=== PATIENT | female | born 1940 | race Caucasian/White ===

== ENCOUNTER 2019-04-08 15:19 | Observation (INO) | payer MEDICARE ==
[2019-04-08] MEDS ORDERED: NITROGLYCERIN OINT 1 INCH/GM PACKET TOPICAL STA (16:41)
[2019-04-08] MEDS ORDERED: ASPIRIN 81 MG PO STA (16:41)
--- NOTE | 2019-04-08 17:10 | ED ---
General Adult HPI - General Stated complaint: abnormal ekg Time Seen by Provider: 04/08/19 16:40 Source: RN notes reviewed - History of Present Illness Initial comments: This is an 78-year-old female presents emergency Department complaining of chest pain. Patient states she had chest pain 2 nights ago and lasted about an hour and she also stated at that time she was somewhat short of breath. Patient states there was a heaviness in the left side of her chest and then eventually dissipated. Patient states she has again today and decided this time she needs to come and be evaluated. Patient states it lasted for an hour again. Patient went to see her primary medical care doctor first and he sent her into the emergency department. Patient states currently she is chest pain-free. Patient denies any associated shortness of breath today she denies any diaphoretic episodes she denies any nausea. Patient states recently she has had no fever chills or cough. Patient denies abdominal pain patient denies nausea vomiting or diarrhea. - Related Data Home Medications Medication Instructions Recorded Confirmed No Known Home Medications 04/08/19 04/08/19 Review of Systems ROS Statement: Those systems with pertinent positive or pertinent negative responses have been documented in the HPI. ROS Other: All systems not noted in ROS Statement are negative. General Exam - General Exam Comments Initial Comments: GENERAL: Patient is well-developed and well-nourished. Patient is nontoxic and well- hydrated and is in mild distress. ENT: Neck is soft and supple. No significant lymphadenopathy is noted. Oropharynx is clear. Moist mucous membranes. Neck has full range of motion without eliciting any pain. EYES: The sclera were anicteric and conjunctiva were pink and moist. Extraocular movements were intact and pupils were equal round and reactive to light. Eyelids were unremarkable. PULMONARY: Unlabored respirations. Good breath sounds bilaterally. No audible rales rhonchi or wheezing was noted. CARDIOVASCULAR: There is a regular rate and rhythm without any murmurs gallops or rubs. ABDOMEN: Soft and nontender with normal bowel sounds. No palpable organomegaly was noted. There is no palpable pulsatile mass. SKIN: Skin is clear with no lesions or rashes and otherwise unremarkable. NEUROLOGIC: Patient is alert and oriented x3. Cranial nerves II through XII are grossly intact. Motor and sensory are also intact. Normal speech, volume and content. Symmetrical smile. MUSCULOSKELETAL: Normal extremities with adequate strength and full range of motion. LYMPHATICS: No significant lymphadenopathy is noted PSYCHIATRIC: Normal psychiatric evaluation. Medical Decision Making - Medical Decision Making EKG shows normal sinus rhythm at 86 bpm IA interval 282 QRS is 150 QT interval 424 QTC is 507. Patient's EKG shows no ST segment elevation or depression or T wave abnormalities are noted Disposition Referrals: Geovanny Holland MD [Primary Care Provider] - 1-2 days
[2019-04-08 17:17] LABS: Basophils % (A) 1 %; Eosinophils # (A) 0.1 k/uL (0-0.7); Eosinophils % (A) 1 %; HGB 12.1 gm/dL (11.4-16.0); Lymphocytes # (A) 1.8 k/uL (1.0-4.8); Lymphocytes % (A) 23 %; MCH 28.9 pg (25.0-35.0); MCHC 32.9 g/dL (31.0-37.0); MCV 88.1 fL (80.0-100.0); Mean Platelet Volume 7.6; Monocytes # (A) 0.5 k/uL (0-1.0); Monocytes % (A) 6 %; Neutrophils # (A) 5.3 k/uL (1.3-7.7); Neutrophils % (A) 68 %; Platelet Count 297 k/uL (150-450); RBC 4.19 m/uL (3.80-5.40); RDW 14.1 % (11.5-15.5); WBC 7.8 k/uL (3.8-10.6)
[2019-04-08 17:24] LABS: INR 0.9 (<1.2); Prothrombin Time 9.8 sec (9.0-12.0)
[2019-04-08 17:35] LABS: Albumin 4.2 g/dL (3.5-5.0); Calcium 9.5 mg/dL (8.4-10.2); Total Bilirubin 0.4 mg/dL (0.2-1.3)
--- NOTE | 2019-04-08 19:05 | XR ---
EXAMINATION: XR chest 2V DATE AND TIME: 04/08/2019 6:02 PM CLINICAL INDICATION: PHH; Chest Pain TECHNIQUE: Departmental protocol COMPARISON: None FINDINGS: The lungs are clear, with exception of a 1 cm pulmonary calcification superimposed over the lateral r ight mid lung zone. Bilateral nipple shadows are incidentally noted. The pleural spaces are negative. The cardiac silhouette is not enlarged. The remainder of the mediastinal silhouette is unremarkable. The skeletal structures and soft tissues are negative for acute findings. IMPRESSION: NO ACUTE PROCESS.
[2019-04-08] MEDS ORDERED: HEPARIN SODIUM,PORCINE 5,000 UNIT/ML 1 ML VIAL IV ONE (19:07)
[2019-04-08] MEDS ORDERED: NITROGLYCERIN SL TABS 0.4 MG TAB SUBLINGUAL PRN (19:12)
[2019-04-08] MEDS ORDERED: HEPARIN SOD,PORK IN 0.45% NACL 25,000 UNIT in 0.45% NACL 1 250ML.BAG IV SCH (19:15)
[2019-04-08] MEDS ORDERED: hydrALAZINE HCL 20 MG/ML 1 ML VIAL IVP STA (19:32)
[2019-04-08] MEDS ORDERED: HEPARIN SODIUM,PORCINE 5,000 UNIT/ML 1 ML VIAL IV PRN (20:38)
[2019-04-09] MEDS: NITROGLYCERIN OINT 1 INCH/GM PACKET TOPICAL SCH ×2 (00:33→06:35)
[2019-04-09 01:29] LABS: D-Dimer 0.41 mg/L FEU (<0.60); Partial Thromboplastin Time 52.5 sec (22.0-30.0)
--- NOTE | 2019-04-09 06:03 | HP ---
HISTORY AND PHYSICAL DATE OF SERVICE: 04/08/2019 CHIEF COMPLAINT: Chest pain. HISTORY OF PRESENT ILLNESS: This 78-year-old woman with a past medical history of multiple medical problems including history of CAD, history of hypertension, hyperlipidemia, history of DJD, history of depression being followed by Dr. Holland in the outpatient setting was complaining of chest pain. The pain was felt about 2 nights ago, lasted for an hour. The patient felt pain mainly in the left side of the chest around the breast area. The patient also had some difficulty in breathing and some aggression with the pain with breathing and the patient came to [facility] and admitted for further evaluation and treatment. The troponins are negative and the EKG showed right bundle branch block. There is no history of fever, rigors or chills. No history of headache, loss of consciousness, seizures at this time. PAST MEDICAL HISTORY: History of CAD, history of hypertension, hyperlipidemia, history of DJD, history of depression. MEDICATIONS: Home medications are: 1. Aspirin 81 mg p.o. daily. 2. Norvasc 5 mg p.o. daily. 3. Zoloft 50 mg daily. ALLERGIES: None. FAMILY HISTORY: No history of heart disease or strokes in the family. SOCIAL HISTORY: No history of smoking. No history of alcohol intake. REVIEW OF SYSTEMS: ENT: Diminished hearing and diminished vision. CARDIOVASCULAR: As mentioned earlier. RESPIRATORY: As mentioned earlier. GI no nausea or vomiting. no dysuria. NERVOUS SYSTEM: No numbness or weakness. ALLERGY/IMMUNOLOGY: No asthma or hayfever. MUSCULOSKELETAL: As mentioned earlier. HEMATOLOGY/ONCOLOGY: No history of anemia. ENDOCRINE: No history of diabetes or hypothyroidism. CONSTITUTIONAL: As mentioned earlier. DERMATOLOGY: Negative. RHEUMATOLOGY: Negative. PSYCHIATRY: As mentioned earlier. PHYSICAL EXAM: Patient is alert, oriented x3. The pulse is 80, blood pressure 131/70, respiration 16, temperature 98.2, pulse ox 98% on room air. HEENT: Conjunctivae normal. Oral mucosa moist. NECK is no jugular venous distention. No carotid bruit. No lymph node enlargement. CARDIOVASCULAR System: S1, S2 muffled. RESPIRATIONS: Breath sounds diminished in the bases. A few scattered rhonchi and crackles. ABDOMEN: Soft, nontender. No mass palpable. LEGS: No edema. No swelling. NERVOUS SYSTEM: Higher functions as mentioned earlier. Moves all four extremities. No focal motor or sensory deficits. LYMPHATICS: No lymph nodes palpable in the neck, axillae or groin. SKIN: No ulcer, rash or bleeding. JOINTS: No active deforming arthropathy. LABS: CBC within normal limits. Glucose 104. Troponins are negative. ASSESSMENT: 1. Chest pain possible unstable angina. 2. Right bundle branch block on the EKG. 3. Hypertension. 4. Hyperlipidemia. 5. History of coronary artery disease. 6. History of degenerative joint disease. 7. History of depression. RECOMMENDATIONS AND DISCUSSION: In this 78-year-old woman who presented with multiple complex medical issues, we will monitor the patient closely, continue the current medications, management and symptomatic treatment. Otherwise, at this time, unstable angina protocol. Heparin is initiated. Cardiology consultation to rule out myocardial infarction. Resume the home medications. The prognosis is guarded because of multiple complex medical issues. Further recommendations to follow. A copy is being forwarded to Dr. Holland who is the primary physician. MMODL / IJN: [id number] /
[2019-04-09 06:26] LABS: Cholesterol 204 mg/dL (<200); HDL Cholesterol 56 mg/dL (40-60); LDL Cholesterol,Calculated 132 mg/dL (0-99); Triglycerides 79 mg/dL (<150)
--- NOTE | 2019-04-09 08:10 | P.CRDCN ---
History of Present Illness Consult date: 04/09/19 Chief complaint: Chest pain History of present illness: This is an 78-year-old female patient with a past medical history significant for hypertension was referred from her primary care physician office directly to the hospital for further evaluation of abnormal EKG. The patient did have an episode of atypical chest discomfort 2 days ago when she was sleeping and the discomfort woke her up from sleep. It was sharp kind of discomfort, in the mid of the chest, without any radiation, and without any associated symptoms and lasted only for a few minutes. She went yesterday to see her primary care physician about prescription refill and she told him about the chest discomfort weren't EKG in the office was performed and based on the EKG the patient was sent to the hospital. The EKG in the hospital revealed sinus rhythm with RBBB. The cardiac enzymes were checked and came in to be unremarkable. The chest x- ray did not show any acute abnormalities. The d-dimer came in to be unremarkable. The patient continues to be chest pain-free during her hospitalization. She is not aware of any prior history of coronary artery disease or congestive heart failure or cardiac arrhythmia and the patient never seen by a train master in the past. The patient does not smoke. And there is no significant family history of coronary artery disease. Past Medical History Past Medical History: Coronary Artery Disease (CAD), Hyperlipidemia, Hypertension History of Any Multi-Drug Resistant Organisms: None Reported Past Surgical History: Joint Replacement, Orthopedic Surgery, Tubal Ligation Additional Past Surgical History / Comment(s): hip sugery Past Anesthesia/Blood Transfusion Reactions: No Reported Reaction Past Psychological History: Depression Smoking Status: Never smoker Past Alcohol Use History: None Reported Past Drug Use History: None Reported - Past Family History Mother Family Medical History: No Reported History Father Family Medical History: Asthma Additional Family Medical History / Comment(s): blood disorder Sister(s) Family Medical History: Diabetes Mellitus Brother(s) Family Medical History: Cancer, Hypertension Son(s) Family Medical History: No Reported History Daughter(s) Family Medical History: Coronary Artery Disease (CAD) Additional Family Medical History / Comment(s): cardiac caths with stents Medications and Allergies Home Medications Medication Instructions Recorded Confirmed Type Aspirin [Adult Low Dose Aspirin EC] 81 mg PO DAILY 04/08/19 04/08/19 History Sertraline [Zoloft] 50 mg PO DAILY 04/08/19 04/08/19 History amLODIPine [Norvasc] 5 mg PO DAILY 04/08/19 04/08/19 History Allergies Allergy/AdvReac Type Severity Reaction Status Date / Time No Known Allergies Allergy Verified 04/08/19 20:42 Physical Exam Vitals: Vital Signs Temp Pulse Pulse Pulse Resp BP BP 04/09/19 04:00 97.7 F 89 15 179/75 04/08/19 23:32 98.2 F 80 15 131/70 04/08/19 20:00 98.0 F 103 H 14 145/65 04/08/19 19:48 19 04/08/19 19:29 79 19 182/98 04/08/19 18:31 77 18 168/95 04/08/19 15:31 98.4 F 101 H 18 162/81 Pulse Ox 04/09/19 04:00 97 04/08/19 23:32 98 04/08/19 20:00 97 04/08/19 19:48 04/08/19 19:29 98 04/08/19 18:31 97 04/08/19 15:31 98 Intake and Output 04/08/19 04/09/19 04/09/19 22:59 06:59 14:59 Intake Total 0 Balance 0 Intake: Oral 0 Other: Voiding Method Toilet Toilet Incontinent Incontinent # Voids 1 Weight 70.9 kg - Constitutional General appearance: no acute distress - Respiratory Respiratory: bilateral: CTA - Cardiovascular Rhythm: regular Heart sounds: normal: S1, S2 Abnormal Heart Sounds: systolic murmur Results 04/08/19 17:02 04/08/19 17:02 Cardiac Enzymes 04/08/19 04/08/19 04/08/19 Range/Units 17:02 17:02 23:31 AST 23 (14-36) U/L Troponin I <0.012 0.013 (0.000-0.034) ng/mL 04/09/19 Range/Units 05:30 AST (14-36) U/L Troponin I 0.014 (0.000-0.034) ng/mL Coagulation 04/08/19 04/09/19 Range/Units 17:02 01:00 PT 9.8 (9.0-12.0) sec APTT 22.0 52.5 H (22.0-30.0) sec Lipids 04/09/19 Range/Units 05:30 Triglycerides 79 (<150) mg/dL Cholesterol 204 H (<200) mg/dL HDL Cholesterol 56 (40-60) mg/dL CBC 04/08/19 Range/Units 17:02 WBC 7.8 (3.8-10.6) k/uL RBC 4.19 (3.80-5.40) m/uL Hgb 12.1 (11.4-16.0) gm/dL Hct 37.0 (34.0-46.0) % Plt Count 297 (150-450) k/uL Comprehensive Metabolic Panel 04/08/19 Range/Units 17:02 Sodium 142 (137-145) mmol/L Potassium 4.0 (3.5-5.1) mmol/L Chloride 106 (98-107) mmol/L Carbon Dioxide 29 (22-30) mmol/L BUN 17 (7-17) mg/dL Creatinine 0.97 (0.52-1.04) mg/dL Glucose 104 H (74-99) mg/dL Calcium 9.5 (8.4-10.2) mg/dL AST 23 (14-36) U/L ALT 13 (9-52) U/L Alkaline Phosphatase 63 (38-126) U/L Total Protein 7.0 (6.3-8.2) g/dL Albumin 4.2 (3.5-5.0) g/dL Current Medications Generic Name Dose Route Start Last Admin Trade Name Freq PRN Reason Stop Dose Admin Amlodipine Besylate 5 mg 04/09/19 09:00 Norvasc PO DAILY [facility] Aspirin 325 mg 04/09/19 09:00 Aspirin PO DAILY [facility] Heparin Sodium (Porcine) 0 unit 04/08/19 20:38 Heparin IV PER PROTOCOL PRN Low PTT Protocol Heparin Sodium/Sodium Chloride 250 mls @ 8.508 mls/hr 04/08/19 19:15 04/08/19 19:43 25,000 unit/ Sodium Chloride IV 12 units/kg/hr .Q24H RENE 8.508 mls/hr Administration Protocol 12 UNITS/KG/HR Nitroglycerin 1 inch 04/09/19 00:00 04/09/19 06:35 Nitro-Bid Oint TOPICAL Not Given Q6HR [facility] Nitroglycerin 0.4 mg 04/08/19 19:12 Nitrostat SUBLINGUAL Q5M PRN Chest Pain Sertraline HCl 50 mg 04/09/19 09:00 Zoloft PO DAILY RENE Intake and Output 04/08/19 04/09/19 04/09/19 22:59 06:59 14:59 Intake Total 0 Balance 0 Intake: Oral 0 Other: Voiding Method Toilet Toilet Incontinent Incontinent # Voids 1 Weight 70.9 kg 04/08/19 17:02 04/08/19 17:02 Assessment and Plan Assessment: Assessment #1 atypical chest discomfort. The patient currently chest pain-free #2 hypertension Plan #1 the patient was ruled out for acute coronary syndrome #2 PE was ruled out. She does have normal d-dimer #3 I am getting the patient up and around, if she is asymptomatic, I feel comfortable discharging the patient home and follow-up with her as an outpatient Thank you for allowing us participate in her care.
[2019-04-09 08:15] VITALS: RESP 18; TEMP 97.5
[2019-04-09] MEDS ORDERED: ASPIRIN 325 MG TAB PO SCH (09:00)
[2019-04-09] MEDS ORDERED: SERTRALINE 50 MG TAB PO SCH (09:00)
[2019-04-09] MEDS ORDERED: amLODIPine 5 MG TAB PO SCH (09:00)
[2019-04-09] MEDS ORDERED: NON-FORMULARY DRUG (Aspirin [Adult Low Dose Aspirin Ec] 81 MG) PO SCH (09:00)
[2019-04-09 11:30] VITALS: BP 146/73; PULSE 84
--- NOTE | 2019-04-09 14:57 | DS ---
DISCHARGE SUMMARY DATE OF SERVICE: 04/09/2019 FINAL DIAGNOSES: 1. Chest pain, myocardial infarction ruled out. Rule out coronary artery disease. Possibly musculoskeletal chest pain. 2. Right bundle branch block on EKG. 3. Hypertension. 4. Hyperlipidemia. 5. History of coronary artery disease. 6. History of degenerative joint disease. 7. History of depression. DISCHARGE DISPOSITION: The patient will be discharged in a stable condition with guarded prognosis. Discharge cleared by Cardiology. HISTORY OF PRESENT ILLNESS: This is an 78-year-old woman with a past medical history of multiple medical problems being followed by Dr. Holland in the outpatient setting, was admitted with chest pain, myocardial infarction ruled out. The patient also had a D-dimer which was negative and the patient developed cardiology recommended outpatient followup. On exam, vitals are stable cardiovascular system is normal. Abdomen is soft. Nervous System: No focal discharge. Diet is cardiac. Activity limited until follow up. Follow up with Dr. Holland in 2-[address] Barragan as recommended. MEDICATIONS ARE: 1. Ecotrin 81 mg daily. 2. Norvasc 5 mg. 3. Zoloft 50 mg p.o. daily. 4. Tylenol p.r.n. for pain. MMODL / IJN: [id number] /
== END 2019-04-09 12:50 | disposition home or self-care (01) ==
LOC: EC 15:19 → 1SOBS 19:12
PROVIDERS: ADMIT Hospitalist; ATTEND Hospitalist
DX: R07.89 Other chest pain (principal); I45.10 Unspecified right bundle-branch block; I25.10 Atherosclerotic heart disease of native coronary artery without angina pectoris; I10 Essential (primary) hypertension; E78.5 Hyperlipidemia, unspecified; M19.90 Unspecified osteoarthritis, unspecified site; F32.9 Major depressive disorder, single episode, unspecified; R53.1 Weakness; Z79.82 Long term (current) use of aspirin; Z79.899 Other long term (current) drug therapy; Z98.51 Tubal ligation status; Z96.642 Presence of left artificial hip joint; Z83.3 Family history of diabetes mellitus; Z82.49 Family history of ischemic heart disease and other diseases of the circulatory system; Z82.5 Family history of asthma and other chronic lower respiratory diseases
CPT/HCPCS: 96366 ×2; 96376; 96365; 96375; 99285; 36415; 85379; 80061; 80053; 83735; 84484 ×2; 85025; 85610; 85730 ×2; 71046; G0378 ×2; J0360; J1644 ×2; 93005

== ENCOUNTER → 2022-10-09 | Day surgery (SDC) | payer MEDICARE ==
[2022-10-05 12:05] VITALS: BMI 22.5
[~2022-10-09] MED LIST: ALPRAZolam 0.25 MG TAB PO PRN; ALPRAZolam 0.5 MG TAB PO PRN; ASPIRIN 325 MG TAB PO STA; ASPIRIN 81 MG PO SCH; ATORVASTATIN 20 MG TAB PO SCH; BENZOCAINE SPRAY 1 CAN TOPICAL ONE; HEPARIN SODIUM 1,000 UN/ML (10ML VL) IV ONE; HEPARIN SODIUM 1,000 UN/ML (10ML VL) ONE; IOPAMIDOL-370 100ML BTL INJ ONE; LIDOCAINE 1% INJ 10MG/ML (5 ML VIAL-PF) SQ ONE; MIDAZOLAM 2 MG/2 ML VIAL IV ONE; MULTIVITAMINS, THERA 1 EACH TAB PO SCH; NITROGLYCERIN SL TABS 0.4 MG TAB SUBLINGUAL PRN; RX INFO: IV CONTRAST WAS GIVEN 1 EACH MISC MISCELLANE PRN; SODIUM CHLORIDE 0.9% 1,000 ML in EMPTY BAG 1 BAG IV SCH; VALSARTAN 160 MG TAB PO SCH; VERAPAMIL 2.5 MG/ML 2 ML AMP ONE; VERAPAMIL SYRINGE (5 MG/10 ML) INTRAARTER ONE; fentaNYL (PF) 50 MCG/ML 2 ML AMP IV ONE; fentaNYL (PF) 50 MCG/ML 2 ML AMP ONE; hydroCHLOROthiazide 25 MG TAB PO SCH
[2022-10-09 10:07] VITALS: RESP 16; TEMP 96.6
[2022-10-09 10:16] LABS: Basophils % (A) 1 %; Eosinophils # (A) 0.1 k/uL (0-0.7); Eosinophils % (A) 1 %; HCT 37.8 % (34.0-46.0); Lymphocytes # (A) 1.3 k/uL (1.0-4.8); Lymphocytes % (A) 16 %; MCH 30.2 pg (25.0-35.0); MCHC 34.3 g/dL (31.0-37.0); MCV 88.1 fL (80.0-100.0); Mean Platelet Volume 8.6; Monocytes # (A) 0.3 k/uL (0-1.0); Monocytes % (A) 4 %; Neutrophils % (A) 76 %; Platelet Count 309 k/uL (150-450); RBC 4.29 m/uL (3.80-5.40); RDW 13.1 % (11.5-15.5)
[2022-10-09 10:27] LABS: Calcium 9.5 mg/dL (8.4-10.2); Potassium 4.3 mmol/L (3.5-5.1)
--- NOTE | 2022-10-09 12:08 | P.PCN ---
Date of Procedure: 10/09/22 Operative Findings: TRANSESOPHAGEAL ECHOCARDIOGRAM JUNIOR ACCOUNT EXECUTIVE: MERYL PARSON MD, RPVI INDICATION: Aortic insufficiency SEDATION: Conscious sedation COMPLICATION: None LEVEL OF SEDATION Moderate sedation length of 10 minutes PROCEDURE DESCRIPTION: After obtaining an informed consent, the patient was brought to transesophageal echocardiogram room. Pulse oximetry and heart monitors were attached to the patient. The patient throat was sprayed using lidocaine. The patient was turned into left lateral position. After that a bite guard was placed. After an appropriate conscious sedation was initiated, the transesophageal echocardiogram was advanced through a bite guard into the mid esophagus. A 2-D echocardiogram images, color Doppler images, continuous wave images, pulse-wave images, of various cardiac structure were performed. After that the transesophageal echocardiogram probe was advanced into the stomach and fixed to obtain transgastric view was. The probe was brought into the mid esophagus. Inter-atrial septum was interrogated using 2D images, color Doppler images, and then contrast study. After that transesophageal echocardiogram was withdrawn out and upon withdrawing the descending thoracic aorta all the way up to the arch was evaluated. FINDING: The left ventricular dimension appeared to be within normal limits. Left ventricular systolic function appeared to be mildly impaired was EF between 40- 45%. The right ventricle appeared to be of normal size and function. The left atrium appears to be mildly dilated. The atrial appendage appeared to be intact. The interatrial septum appeared to be intact. The aortic valve is trileaflet valve with no stenosis and moderate insufficiency. The mitral valve seems to be mildly thickened was moderate MR. Normal tricuspid valve and pul mahendra valve. No evidence of pericardial effusion CONCLUSION: 1. Mildly impaired LV function was EF between 40-45% 2. Trileaflet aortic valve with moderate aortic insufficiency 3. Thickened mitral valve leaflets was moderate MR 4. Normal tricuspid valve and pulmonary 5. No evidence of pericardial effusion
--- NOTE | 2022-10-09 12:30 | P.PCN ---
Date of Procedure: 10/09/22 Operative Findings: CARDIAC CATHETERIZATION PERFORMING PHYSICIAN: Keon Barragan MD, RPVI PROCEDURE PERFORMED: 1. Selective right and left coronary angiogram INDICATION: Cardiomyopathy COMPLICATION: None APPROACH: Right radial artery LEVEL OF SEDATION: Moderate with a sedation length of 23 minutes PROCEDURE DESCRIPTION: After obtaining an informed consent, the patient was brought to cardiac cardiovascular lab director. Local anesthesia was performed using lidocaine subcutaneously. The right radial artery was cannulated using Seldinger technique, the guidewire passed easily, following that we advanced a 5-Mongolian sheath dilator assembly, the wire and dilator were removed and sheath was flushed. Following that, 2 mg of verapamil along with 5000 unit heparin were given. Selective right and left coronary angiogram using a 6-Mongolian JR4 and JL 3.5 c atheters. The procedure was completed there was no complication. SELECTIVE CORONARY ANGIOGRAM: The right coronary artery: Large-caliber vessel ansa dominant vessel. The RCA is chronically occluded in the midportion and fills by collateral from the left coronary system Left main: Appeared to be angiographically normal. Bifurcates into a LCx and LAD The left circumflex: The LCx is a large caliber vessel and its and on dominant vessel. The LCx appeared to have mild disease only. Gives rises into a large OM branch which appeared to be angiographically normal The left anterior descending artery: Large-caliber vessel. The proximal LAD has a lesion appeared to be in the range of 40-50%. The mid and distal LAD appear to have mild disease only. The LAD gives rise into a large diagonal branch which seems to be angiographically normal CONCLUSION: 1. 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 Admitted disease involving the proximal left anterior descending POSTPROCEDURE MANAGEMENT: Medical treatment and follow-up with the patient
[2022-10-09 16:19] VITALS: BP 124/58; PULSE 80
== END ==
LOC: CATHCVL 08:53
PROVIDERS: ATTEND Internal Medicine Interventional Cardiology
DX: I25.10 Atherosclerotic heart disease of native coronary artery without angina pectoris (principal); I35.0 Nonrheumatic aortic (valve) stenosis; I25.82 Chronic total occlusion of coronary artery; I35.1 Nonrheumatic aortic (valve) insufficiency; I42.9 Cardiomyopathy, unspecified
CPT/HCPCS: 93312; 93320; 93325; 80048; 85025; 93458; C1769; C1894; J2250; J2001; J3010; J1644; Q9967; 93454

== ENCOUNTER → 2023-03-22 | Outpatient (CLI) | payer MEDICARE ==
[2023-03-22 20:53] LABS: HGB 12.2 g/dL (12.0-15.0); MCV 90.9 fL (80.0-97.0); Mean Platelet Volume 9.7 fL (9.5-12.2); NRBC Per 100 WBC 0 /100 WBCS (0.0-0.0); Platelet Count 400 X 10*3/uL (140-440); RBC 4.07 X 10*6/uL (4.10-5.20); RDW 12.9 % (11.5-14.5); WBC 9.03 X 10*3/uL (4.50-10.00)
[2023-03-22 21:38] LABS: T4, Free (Free Thyroxine) 1.41 ng/dL (0.800-1.800)
== END | disposition home or self-care (01) ==
LOC: LABWHC1 13:18
PROVIDERS: ATTEND Internal Medicine
DX: R53.83 Other fatigue (principal); R68.89 Other general symptoms and signs
CPT/HCPCS: 36415; 82607; 83540; 84439; 84443; 84481; 85027

== ENCOUNTER 2023-07-17 23:20 | Inpatient (IN) | payer MEDICARE ==
--- NOTE | 2023-07-17 23:46 | ED ---
General Adult HPI - General Chief complaint: Altered Mental Status Stated complaint: CONFUSION Time Seen by Provider: 07/17/23 23:23 Source: EMS Mode of arrival: EMS Limitations: altered mental status - History of Present Illness Initial comments: Dictation was produced using [employer] dictation software. please excuse any grammatical, word or spelling errors. Chief Complaint: 82-year-old female with history of dementia presents with a ltered mental status History of Present Illness: Patient is a 82-year-old female she is brought in by EMS from home. Patient lives at home under the care of Bruce who is the linoleum floor installer. Family provides some history over the phone states that she speaks with patient daily notices that over the last week or so she seems slightly more altered. She has a history of dementia. Daughter is concerned that patient has not been taking her medications. Bruce, patient's caretakers at the bedside states that she is in fact taken her medications. She is brought here to the ER because she had an episode where she was crying. She was fidgeting with a chair when Bruce said stop fidgeting with a chair because ultimately she may break the chair. She became upset and started crying. This is when EMS was called. Patient has any complaints. States that she would like to be discharge. The ROS documented in this emergency department record has been reviewed and confirmed by me. Those systems with pertinent positive or negative responses have been documented in the HPI. All other systems are other negative and/or noncontributory. - Related Data Home Medications Medication Instructions Recorded Confirmed Simvastatin [Zocor] 40 mg PO HS 10/05/22 05/26/23 Valsartan/Hydrochlorothiazide 1 tab PO DAILY 10/05/22 05/26/23 [Valsartan-Hctz 320-25 mg Tab] Metoprolol Succinate (ER) [Toprol 25 mg PO DAILY 05/26/23 05/26/23 Xl] Previous Rx's Medication Instructions Recorded Cephalexin [Keflex] 500 mg PO Q12HR 7 Days #14 cap 05/27/23 Allergies Allergy/AdvReac Type Severity Reaction Status Date / Time No Known Allergies Allergy Verified 05/26/23 22:09 Review of Systems ROS Statement: Those systems with pertinent positive or pertinent negative responses have been documented in the HPI. ROS Other: All systems not noted in ROS Statement are negative. Past Medical History Past Medical History: Coronary Artery Disease (CAD), Hyperlipidemia, Hyperte nsion, Osteoarthritis (OA) Additional Past Medical History / Comment(s): hx falls, states fx right hip with surgery x2 and needs a 3rd surgery., uses walker., back & shoulder pain., see cardiology h & P. History of Any Multi-Drug Resistant Organisms: None Reported Past Surgical History: Joint Replacement, Orthopedic Surgery, Tubal Ligation Additional Past Surgical History / Comment(s): HX FALL WITH LEFT HIP FX SURGERY, HX FALL WITH RIGHT HIP SURGERY X2. Past Anesthesia/Blood Transfusion Reactions: No Reported Reaction Past Psychological History: No Psychological Hx Reported Smoking Status: Never smoker Past Alcohol Use History: None Reported Past Drug Use History: None Reported - Past Family History Mother Family Medical History: No Reported History Father Family Medical History: Asthma Additional Family Medical History / Comment(s): blood disorder- had too much blood . Sister(s) Family Medical History: Diabetes Mellitus Brother(s) Family Medical History: Cancer, Hypertension Son(s) Family Medical History: No Reported History Additional Family Medical History / Comment(s): pacemaker Daughter(s) Family Medical History: Coronary Artery Disease (CAD) Additional Family Medical History / Comment(s): 2 Daughters -Cardiac stents. General Exam - General Exam Comments Initial Comments: PHYSICAL EXAM: General Impression: Alert and oriented x3/4, not in acute distress HEENT: Normocephalic atraumatic, extra-ocular movements intact, pupils equal and reactive to light bilaterally, mucous membranes moist. Cardiovascular: Heart regular rate and rhythm Chest: Able to complete full sentences, no retractions, no tachypnea Abdomen: abdomen soft, non-tender, non-distended, no organomegaly Musculoskeletal: Pulses present and equal in all extremities, no peripheral edema Motor: no focal deficits noted Neurological: CN II-XII grossly intact, no focal motor or sensory deficits noted Skin: Intact with no visualized rashes Psych: Normal affect and mood Limitations: altered mental status Course Vital Signs 07/17/23 23:22 Temperature 97.9 F Pulse Rate 71 Respiratory 18 Rate Blood Pressure 192/82 O2 Sat by Pulse 97 Oximetry EKG Findings - EKG Comments: EKG Findings:: My EKG interpretation: Ventricular rate 69, sinus rhythm,. Interval to 32, QRS 166, QTC 486. No IL prolongation, no QTC prolongation, no ST or T-wave changes noted. Overall, this EKG is unremarkable Medical Decision Making - Medical Decision Making Was pt. sent in by a medical professional or institution (AUBREY Wilson, PAINT TECHNICIAN, urgent care, hospital, or halfway...) When possible be specific @ -No Did you speak to anyone other than the patient for history (EMS, parent, family, police, friend...)? What history was obtained from this source @ -Some history obtained from Bruce and daughter over the phone as described above Did you review nursing and triage notes (agree or disagree)? Why? @ -I reviewed and agree with nursing and triage notes Were old charts reviewed (outside hosp., previous admission, EMS record, old EKG, old radiological studies, urgent care reports/EKG's, halfway records)? Report findings @ -No old charts were reviewed Differential Diagnosis (chest pain, altered mental status, abdominal pain women, abdominal pain men, vaginal bleeding, musculoskeletal, weakness, fever, dyspnea, syncope, headache, dizziness, GI bleed, back pain, seizure, CVA, palpatations, mental health)? @ -Differential Altered Mental Status: Hypoglycemia, DKA, hypercapnia, ETOH, overdose, CO poisoning, trauma, myxedema coma, HTN encephalopathy, infection, encephalitis, psychosis, intercranial hemorrhage, hepatic encephalopathy, meningitis, CVA, this is not meant to be an all-inclusive list EKG interpreted by me (3pts min.). @ -see above X-rays interpreted by me (1pt min.). @ -None done CT interpreted by me (1pt min.). @ -CT scan of brain is unremarkable U/S interpreted by me (1pt. min.). @ -None done What testing was considered but not performed or refused? (CT, X-rays, U/S, labs)? Why? @ -None What meds were considered but not given or refused? Why? @ -None Did you discuss the management of the patient with other professionals (professionals i.e. AUBREY Wilson, PAINT TECHNICIAN, lab, RT, psych nurse, social scientist, blow up operator, teacher, credit officer, nurse outreach case manager)? Give summary @ -No Was smoking cessation discussed for >3mins.? @ -No Was critical care preformed (if so, how long)? @ -No Were there social determinants of health that impacted care today? How? (H omelessness, low income, unemployed, alcoholism, drug addiction, transportation, low edu. Level, literacy, decrease access to med. care, fpc, rehab)? @ -No Was there de-escalation of care discussed even if they declined (Discuss DNR or withdrawal of care, Hospice)? DNR status @ -No What co-morbidities impacted this encounter? (DM, HTN, Smoking, COPD, CAD, Cancer, CVA, ARF, Chemo, Hep., AIDS, mental health diagnosis, sleep apnea, morbid obesity)? @ -None Was patient admitted / discharged? Hospital course, mention meds given and route, prescriptions, significant lab abnormalities, going to OR and other pertinent info. @ -82-year-old female presents to the ER for evaluation of altered mental status. Vital signs are stable. Patient is well-appearing at bedside she has no complaints. Laboratory evaluation obtained. CBC is unremarkable. Metabolic panel shows sodium of 117. Imaging studies are negative. Pending urinalysis. Patient given 500 mL bolus of fluids and started on low rate sodium chloride. Patient be admitted for hyponatremia treatment. Undiagnosed new problem with uncertain prognosis? @ -No Drug Therapy requiring intensive monitoring for toxicity (Heparin, Nitro, Insulin, Cardizem)? @ -No Were any procedures done? @ -No Diagnosis/symptom? Acute, or Chronic, or Acute on Chronic? Uncomplicated (with out systemic symptoms) or Complicated (systemic symptoms)? @ -Hyponatremia, complicated by altered mental status Side effects of treatment? @ -No Exacerbation, Progression, or Severe Exacerbation? @ -No Poses a threat to life or bodily function? How? (Chest pain, USA, VT, pneumonia, PE, COPD, DKA, ARF, appy, cholecystitis, CVA, Diverticulitis, Homicidal, Suicidal, threat to staff... and all critical care pts) @ -yes - Lab Data Result diagrams: 07/17/23 23:49 07/17/23 23:49 Lab Results 07/17/23 07/17/23 Range/Units 23:49 23:49 WBC 8.3 (3.8-10.6) k/uL RBC 3.51 L (3.80-5.40) m/uL Hgb 11.1 L (11.4-16.0) gm/dL Hct 31.9 L (34.0-46.0) % MCV 91.0 (80.0-100.0) fL MCH 31.7 (25.0-35.0) pg MCHC 34.9 (31.0-37.0) g/dL RDW 13.0 (11.5-15.5) % Plt Count 376 (150-450) k/uL MPV 7.7 Neutrophils % 71 % Lymphocytes % 19 % Monocytes % 7 % Eosinophils % 2 % Basophils % 0 % Neutrophils # 6.0 (1.3-7.7) k/uL Lymphocytes # 1.5 (1.0-4.8) k/uL Monocytes # 0.6 (0-1.0) k/uL Eosinophils # 0.1 (0-0.7) k/uL Basophils # 0.0 (0-0.2) k/uL Sodium 117 L* (137-145) mmol/L Potassium 3.5 (3.5-5.1) mmol/L Chloride 83 L (98-107) mmol/L Carbon Dioxide 26 (22-30) mmol/L Anion Gap 8 mmol/L BUN 20 H (7-17) mg/dL Creatinine 0.71 (0.52-1.04) mg/dL Est GFR (CKD-EPI)AfAm >90 (>60 ml/min/1.73 sqM) Est GFR (CKD-EPI)NonAf 79 (>60 ml/min/1.73 sqM) Glucose 100 H (74-99) mg/dL Calcium 8.8 (8.4-10.2) mg/dL Disposition Clinical Impression: Hyponatremia Disposition: ADMITTED IP TO THIS HOSP Condition: Serious Referrals: Geovanny Holland MD [Primary Care Provider] - 1-2 days Decision Time: 01:26
[2023-07-18 00:06] LABS: Basophils % (A) 0 %; Eosinophils # (A) 0.1 k/uL (0-0.7); Eosinophils % (A) 2 %; HCT 31.9 % (34.0-46.0); HGB 11.1 gm/dL (11.4-16.0); Lymphocytes # (A) 1.5 k/uL (1.0-4.8); Lymphocytes % (A) 19 %; MCH 31.7 pg (25.0-35.0); MCHC 34.9 g/dL (31.0-37.0); Mean Platelet Volume 7.7; Monocytes # (A) 0.6 k/uL (0-1.0); Monocytes % (A) 7 %; Neutrophils % (A) 71 %; Platelet Count 376 k/uL (150-450); RBC 3.51 m/uL (3.80-5.40); WBC 8.3 k/uL (3.8-10.6)
[2023-07-18 00:14] LABS: African American GFR (CKD) >90 (>60 ml/min/1.73 sqM); Anion Gap 8 mmol/L; Blood Urea Nitrogen 20 mg/dL (7-17); Calcium 8.8 mg/dL (8.4-10.2); Carbon Dioxide 26 mmol/L (22-30); Chloride 83 mmol/L (98-107); Glucose 100 mg/dL (74-99); Non-African American GFR(CKD) 79 (>60 ml/min/1.73 sqM); Potassium 3.5 mmol/L (3.5-5.1)
[2023-07-18 00:25] LABS: Sodium 117 mmol/L (137-145)
[2023-07-18] MEDS ORDERED: SODIUM CHLORIDE 0.9% 500 ML 500 ML IV STA (00:29)
[2023-07-18] MEDS ORDERED: SODIUM CHLORIDE 0.9% 1,000 ML IV STA (00:29)
--- NOTE | 2023-07-18 00:33 | CT ---
EXAM: CT Head Without Intravenous Contrast CLINICAL HISTORY: ITS.REASON CT Reason: ams TECHNIQUE: Axial computed tomography images of the head/brain without intravenous contrast. CTDI is 49.1 mGy and DLP is 1130.4 mGy-cm. This CT exam was performed using one or more of the following dose reduction techniques: automated exposure control, adjustment of the mA and/or kV according to patient size, and/or use of iterative reconstruction technique. COMPARISON: No relevant prior studies available. FINDINGS: No acute intracranial hemorrhage. No midline shift or mass effect. The territorial sanchez-white matter differentiation is maintained throughout. Age-related cerebral volume loss. Periventricular and subcortical white matter hypoattenuation, consistent with chronic microangiopathy. The visualized orbits appear grossly unremarkable. The calvarium is intact. The visualized paranasal sinuses and mastoid air cells are grossly clear. IMPRESSION: No acute intracranial hemorrhage, midline shift, or mass effect.
[2023-07-18] MEDS ORDERED: NALOXONE 0.4 MG/ML 1 ML VIAL IV PRN (01:21)
[2023-07-18 06:42] LABS: African American GFR (CKD) >90 (>60 ml/min/1.73 sqM); Anion Gap 10 mmol/L; Blood Urea Nitrogen 14 mg/dL (7-17); Calcium 8.8 mg/dL (8.4-10.2); Carbon Dioxide 25 mmol/L (22-30); Chloride 88 mmol/L (98-107); Glucose 95 mg/dL (74-99); Non-African American GFR(CKD) 82 (>60 ml/min/1.73 sqM); Potassium 3.2 mmol/L (3.5-5.1); Sodium 123 mmol/L (137-145)
[2023-07-18 08:03] LABS: African American GFR (CKD) >90 (>60 ml/min/1.73 sqM); Anion Gap 4 mmol/L; Blood Urea Nitrogen 15 mg/dL (7-17); Calcium 8.4 mg/dL (8.4-10.2); Carbon Dioxide 27 mmol/L (22-30); Chloride 93 mmol/L (98-107); Glucose 90 mg/dL (74-99); Non-African American GFR(CKD) 84 (>60 ml/min/1.73 sqM); Potassium 3.5 mmol/L (3.5-5.1); Sodium 124 mmol/L (137-145)
[2023-07-18 09:08] LABS: Appearance,Urine Cloudy (Clear); Bacteria,Urine Rare /hpf; Bilirubin,Urine Negative (Negative); Blood,Urine Negative (Negative); Color,Urine Colorless; Glucose,Urine (UA) Negative (Negative); Ketones,Urine Negative (Negative); Leukocyte Esterase,Urine Large (Negative); Nitrite,Urine Negative (Negative); PH, Urine 7.5 (5.0-8.0); Protein,Urine Negative (Negative); RBC,Urine 1 /hpf (0-5); Specific Gravity,Urine 1.005 (1.001-1.035); Squamous Epithelial Cell,Urine <1 /hpf (0-4); Urobilinogen,Urine <2.0 mg/dL (<2.0); WBC,Urine 1 /hpf (0-5)
[2023-07-18] MEDS ORDERED: ACETAMINOPHEN TAB 325 MG TAB PO PRN (09:48)
[2023-07-18] MEDS ORDERED: ONDANSETRON 4 MG/2 ML VIAL IVP PRN (09:48)
[2023-07-18] MEDS: METOPROLOL SUCCINATE (ER) 25 MG TAB.ER.24H PO SCH (09:53)
[2023-07-18 11:51] LABS: African American GFR (CKD) >90 (>60 ml/min/1.73 sqM); Anion Gap 6 mmol/L; Blood Urea Nitrogen 15 mg/dL (7-17); Carbon Dioxide 26 mmol/L (22-30); Chloride 92 mmol/L (98-107); Glucose 96 mg/dL (74-99); Non-African American GFR(CKD) 84 (>60 ml/min/1.73 sqM); Potassium 3.7 mmol/L (3.5-5.1); Sodium 124 mmol/L (137-145)
--- NOTE | 2023-07-18 11:57 | P.NPCON ---
History of Present Illness - Reason for Consult hyponatremia - History of Present Illness Patient is an 82-year-old female with history of dementia. Patient is admitted to the hospital with mental status changes. The history is obtained from chart review. Patient is not able to provide history as she is confused. It appears that daughter was concerned about patient not taking her medications. Patient is noted to have a serum sodium of 117. She has been maintained on normal saline and sodium has improved to 124. Blood pressure is elevated Noted to be on hydrochlorothiazide prior to admission. Patient denies any nausea vomiting or diarrhea. Review of Systems As per HPI Past Medical History Past Medical History: Coronary Artery Disease (CAD), Hyperlipidemia, Hypertension, Osteoarthritis (OA) Additional Past Medical History / Comment(s): hx falls, states fx right hip with surgery x2 and needs a 3rd surgery., uses walker., back & shoulder pain., see cardiology h & P. History of Any Multi-Drug Resistant Organisms: None Reported Past Surgical History: Joint Replacement, Orthopedic Surgery, Tubal Ligation Additional Past Surgical History / Comment(s): HX FALL WITH LEFT HIP FX SURGERY, HX FALL WITH RIGHT HIP SURGERY X2. Past Anesthesia/Blood Transfusion Reactions: No Reported Reaction Past Psychological History: No Psychological Hx Reported Smoking Status: Never smoker Past Alcohol Use History: None Reported Past Drug Use History: None Reported - Past Family History Mother Family Medical History: No Reported History Father Family Medical History: Asthma Additional Family Medical History / Comment(s): blood disorder- had too much blood . Sister(s) Family Medical History: Diabetes Mellitus Brother(s) Family Medical History: Cancer, Hypertension Son(s) Family Medical History: No Reported History Additional Family Medical History / Comment(s): pacemaker Daughter(s) Family Medical History: Coronary Artery Disease (CAD) Additional Family Medical History / Comment(s): 2 Daughters -Cardiac stents. Medications and Allergies Home Medications Medication Instructions Recorded Confirmed Type Simvastatin [Zocor] 40 mg PO HS 10/05/22 07/18/23 History Valsartan/Hydrochlorothiazide 1 tab PO DAILY 10/05/22 07/18/23 History [Valsartan-Hctz 320-25 mg Tab] Metoprolol Succinate (ER) [Toprol 25 mg PO DAILY 05/26/23 07/18/23 History Xl] Allergies Allergy/AdvReac Type Severity Reaction Status Date / Time No Known Allergies Allergy Verified 07/18/23 06:57 Physical Exam Vitals: Vital Signs Temp Pulse Resp BP Pulse Ox 07/18/23 09:48 98.1 F 72 18 168/82 98 07/18/23 06:02 67 18 157/85 97 07/17/23 23:22 97.9 F 71 18 192/82 97 Intake and Output 07/17/23 07/18/23 07/18/23 22:59 06:59 14:59 Other: Weight 70.76 kg Patient is awake, comfortable, no acute distress She's confused Examination of the heart S1 and S2 Examination the lungs bilateral breath sounds are heard Abdomen is soft nontender Examination of lower extremity shows no evidence of edema Patient is able to move all 4 extremities. Results - Lab Results Most recent lab results Calcium 9.0 mg/dL (8.4-10.2) 07/18/23 11:18 07/17/23 23:49 07/18/23 11:18 Assessment and Plan Assessment: 1. Hyponatremia, appears hypovolemic and improved with normal saline. Serum sodium however has not improved further. Urine osmolality and urine sodium was be ordered. Rule out.toast syndrome with decreased intake of protein. Patient was also maintained on hydrochlorothiazide prior to admission and this is currently appropriately on hold. 2. Hypokalemia status post replacement. Etiology is thiazide diuretics 3. Dementia 4. Dyslipidemia Plan: Increase saline to 75 mL per hour Repeat sodium this afternoon Check urine osmolality and urine sodium Check TSH levels Patient is encouraged to increase oral intake particularly protein. Next Thank you for the consultation. We will continue to follow the patient with you during her hospitalization.
--- NOTE | 2023-07-18 12:41 | P.HPIM ---
History of Present Illness H&P Date: 07/18/23 Chief Complaint: Altered mental status * 82-year-old patient with past medical history significant for coronary artery disease, hyperlipidemia, hypertension history of recurrent falls presents to the emergency department with complaints of confusion. Patient was brought in by EMS after she was noted to be confused. History was obtained from EMR as well as by family. Per family patient has not been taking her medications however A taken at bedside they feel that patient has been on her medications. * Blood was obtained in ER included CBC which showed normal white cell count hemoglobin of 11.3 hematocrit of 31 platelet count of 376 * Serum electrolyte [place] sodium 117 chloride of 83, creatinine 0.7 blood glucose 100 * Urinalysis is negative for any infectious process * CT head negative for acute intracranial process * Patient is forgetful however able to answers questions appropriately eager to go home. Patient explained K plan at bedside REVIEW OF SYSTEMS: CONSTITUTIONAL: No fever, no malaise, no fatigue. HEENT: No recent visual problems or hearing problems. Denied any sore throat. CARDIOVASCULAR: No chest pain, orthopnea, PND, no palpitations, no syncope. PULMONARY: No shortness of breath, no cough, no hemoptysis. GASTROINTESTINAL: No diarrhea, no nausea, no vomiting, no abdominal pain. NEUROLOGICAL: No headaches, no weakness, no numbness. HEMATOLOGICAL: Denies any bleeding or petechiae. GENITOURINARY: Denies any burning micturition, frequency, or urgency. MUSCULOSKELETAL/RHEUMATOLOGICAL: Denies any joint pain, swelling, or any muscle pain. ENDOCRINE: Denies any polyuria or polydipsia. PHYSICAL EXAMINATION: GENERAL: The patient is alert and oriented x 1, not in any acute distress. Well developed, well nourished. HEENT: Pupils are round and equally reacting to light. EOMI. No scleral icterus. No conjunctival pallor. Normocephalic, atraumatic. No pharyngeal erythema. No thyromegaly. CARDIOVASCULAR: S1 and S2 present. No murmurs, rubs, or gallops. PULMONARY: Chest is clear to auscultation, no wheezing or crackles. ABDOMEN: Soft, nontender, nondistended, normoactive bowel sounds. No palpable organomegaly. MUSCULOSKELETAL: No joint swelling or deformity. EXTREMITIES: No cyanosis, clubbing, or pedal edema. NEUROLOGICAL: Gross neurological examination did not reveal any focal deficits. Impaired cognition and memory SKIN: No rashes. Past Medical History Past Medical History: Coronary Artery Disease (CAD), Hyperlipidemia, Hypertension, Osteoarthritis (OA) Additional Past Medical History / Comment(s): hx falls, states fx right hip with surgery x2 and needs a 3rd surgery., uses walker., back & shoulder pain., see cardiology h & P. History of Any Multi-Drug Resistant Organisms: None Reported Past Surgical History: Joint Replacement, Orthopedic Surgery, Tubal Ligation Additional Past Surgical History / Comment(s): HX FALL WITH LEFT HIP FX SURGERY, HX FALL WITH RIGHT HIP SURGERY X2. Past Anesthesia/Blood Transfusion Reactions: No Reported Reaction Past Psychological History: No Psychological Hx Reported Smoking Status: Never smoker Past Alcohol Use History: None Reported Past Drug Use History: None Reported - Past Family History Mother Family Medical History: No Reported History Father Family Medical History: Asthma Additional Family Medical History / Comment(s): blood disorder- had too much blood . Sister(s) Family Medical History: Diabetes Mellitus Brother(s) Family Medical History: Cancer, Hypertension Son(s) Family Medical History: No Reported History Additional Family Medical History / Comment(s): pacemaker Daughter(s) Family Medical History: Coronary Artery Disease (CAD) Additional Family Medical History / Comment(s): 2 Daughters -Cardiac stents. Medications and Allergies Home Medications Medication Instructions Recorded Confirmed Type Simvastatin [Zocor] 40 mg PO HS 10/05/22 07/18/23 History Valsartan/Hydrochlorothiazide 1 tab PO DAILY 10/05/22 07/18/23 History [Valsartan-Hctz 320-25 mg Tab] Metoprolol Succinate (ER) [Toprol 25 mg PO DAILY 05/26/23 07/18/23 History Xl] Allergies Allergy/AdvReac Type Severity Reaction Status Date / Time No Known Allergies Allergy Verified 07/18/23 06:57 Physical Exam Vitals: Vital Signs Temp Pulse Resp BP Pulse Ox 07/18/23 06:02 67 18 157/85 97 07/17/23 23:22 97.9 F 71 18 192/82 97 Intake and Output 07/17/23 07/18/23 07/18/23 22:59 06:59 14:59 Other: Weight 70.76 kg Results CBC & Chem 7: 07/17/23 23:49 07/18/23 11:18 Labs: Abnormal Lab Results - Last 24 Hours (Table) 07/17/23 07/17/23 07/17/23 Range/Units 08:55 23:49 23:49 RBC 3.51 L (3.80-5.40) m/uL Hgb 11.1 L (11.4-16.0) gm/dL Hct 31.9 L (34.0-46.0) % Sodium 117 L* (137-145) mmol/L Potassium (3.5-5.1) mmol/L Chloride 83 L (98-107) mmol/L BUN 20 H (7-17) mg/dL Glucose 100 H (74-99) mg/dL Urine Appearance Cloudy H (Clear) Ur Leukocyte Esterase Large H (Negative) Urine Bacteria Rare H (None) /hpf 07/18/23 07/18/23 Range/Units 05:50 07:40 RBC (3.80-5.40) m/uL Hgb (11.4-16.0) gm/dL Hct (34.0-46.0) % Sodium 123 L 124 L (137-145) mmol/L Potassium 3.2 L (3.5-5.1) mmol/L Chloride 88 L 93 L (98-107) mmol/L BUN (7-17) mg/dL Glucose (74-99) mg/dL Urine Appearance (Clear) Ur Leukocyte Esterase (Negative) Urine Bacteria (None) /hpf Assessment and Plan Assessment: Assessment and plan * Acute metabolic encephalopathy * Acute hyponatremia * Coronary artery disease * Hypertension * Hyperlipidemia * In regards to acute encephalopathy CT head obtained negative for acute intracranial process. Noted to have acute hyponatremia continue to monitor basic metabolic panel, * Nephrology consulted, serum osmolarity, urine studies were not obtained prior to fluid administration, results will be skewednow hence deferred * Continue to hold hydrochlorothiazide which can contribute to hyponatremia. Appreciate input from nephrology * In regards to history of coronary artery disease and hypertension Continue Zocor and metoprolol * CODE STATUS is full code
[2023-07-18 15:09] LABS: African American GFR (CKD) >90 (>60 ml/min/1.73 sqM); Anion Gap 6 mmol/L; Blood Urea Nitrogen 15 mg/dL (7-17); Calcium 8.9 mg/dL (8.4-10.2); Carbon Dioxide 24 mmol/L (22-30); Chloride 93 mmol/L (98-107); Glucose 102 mg/dL (74-99); Non-African American GFR(CKD) 84 (>60 ml/min/1.73 sqM); Potassium 3.7 mmol/L (3.5-5.1); Sodium 123 mmol/L (137-145)
[2023-07-18] MEDS ORDERED: OLANZapine 10 MG VIAL IM STA (15:53)
[2023-07-18] MEDS: ATORVASTATIN 20 MG TAB PO SCH (20:30)
[2023-07-19] MEDS: SODIUM CHLORIDE 0.9% 1,000 ML IV SCH ×3 (05:17→16:05)
[2023-07-19 08:42] LABS: African American GFR (CKD) >90 (>60 ml/min/1.73 sqM); Anion Gap 6 mmol/L; Blood Urea Nitrogen 11 mg/dL (7-17); Carbon Dioxide 27 mmol/L (22-30); Chloride 94 mmol/L (98-107); Glucose 83 mg/dL (74-99); Non-African American GFR(CKD) 82 (>60 ml/min/1.73 sqM); Potassium 3.8 mmol/L (3.5-5.1); Sodium 127 mmol/L (137-145)
[2023-07-19 08:52] LABS: Basophils % (A) 0 %; Eosinophils # (A) 0.1 k/uL (0-0.7); Eosinophils % (A) 1 %; HCT 34.2 % (34.0-46.0); HGB 11.5 gm/dL (11.4-16.0); Lymphocytes # (A) 1.1 k/uL (1.0-4.8); Lymphocytes % (A) 12 %; MCH 31.6 pg (25.0-35.0); MCHC 33.6 g/dL (31.0-37.0); MCV 93.9 fL (80.0-100.0); Mean Platelet Volume 7.8; Monocytes # (A) 0.5 k/uL (0-1.0); Monocytes % (A) 6 %; Neutrophils # (A) 7.1 k/uL (1.3-7.7); Neutrophils % (A) 80 %; Platelet Count 354 k/uL (150-450); RBC 3.64 m/uL (3.80-5.40); RDW 13.4 % (11.5-15.5); WBC 8.9 k/uL (3.8-10.6)
[2023-07-19] MEDS: METOPROLOL SUCCINATE (ER) 25 MG TAB.ER.24H PO SCH (09:12)
[2023-07-19] MEDS: ENOXAPARIN 40 MG/0.4 ML SYRINGE SQ SCH (09:13)
--- NOTE | 2023-07-19 10:46 | P.PN ---
Subjective Patient is seen for follow-up for hyponatremia. Serum sodium has improved and it is at 127. Patient is maintained on normal saline. Patient is awake she denies any significant symptoms Urine osmolality and urine sodium is not back yet. Blood pressure is not elevated Tolerating oral intake. Objective - Vital Signs Vital signs: Vital Signs Temp 97.8 F 07/19/23 04:00 Pulse 64 07/19/23 04:00 Resp 15 07/19/23 04:00 BP 138/67 07/19/23 04:00 Pulse Ox 96 07/19/23 04:00 FiO2 Intake & Output 07/18/23 07/19/23 07/19/23 18:59 06:59 18:59 Output Total 850 Balance -850 Output: Urine 850 Other: Voiding Method External Catheter # Voids 1 - Exam Awake, comfortable, no acute distress Examination of the heart S1 and S2 Examination of the lungs bilateral breath sounds are heard Abdomen is soft nontender Examination of lower extremities shows no significant edema [employer] exam grossly intact - Labs CBC & Chem 7: 07/19/23 07:16 07/19/23 07:16 Labs: Abnormal Lab Results - Last 24 Hours (Table) 07/18/23 07/18/23 07/19/23 Range/Units 11:18 14:44 07:16 RBC 3.64 L (3.80-5.40) m/uL Sodium 124 L 123 L (137-145) mmol/L Chloride 92 L 93 L (98-107) mmol/L Glucose 102 H (74-99) mg/dL 07/19/23 Range/Units 07:16 RBC (3.80-5.40) m/uL Sodium 127 L (137-145) mmol/L Chloride 94 L (98-107) mmol/L Glucose (74-99) mg/dL Assessment and Plan Assessment: 1. Hyponatremia, appears hypovolemic and improved with normal saline. Serum sodium however has not improved further. Urine osmolality and urine sodium was be ordered. Rule out.toast syndrome with decreased intake of protein. Patient was also maintained on hydrochlorothiazide prior to admission and this is currently appropriately on hold. 2. Hypokalemia status post replacement. Etiology is thiazide diuretics 3. Dementia 4. Dyslipidemia Plan: Continue saline to 75 mL per hour Await urine osmolality and urine sodium Continue off of hydrochlorothiazide Repeat labs in a.m. Patient is encouraged to increase oral intake particularly protein.
--- NOTE | 2023-07-19 12:12 | P.PN ---
Subjective Progress Note Date: 07/19/23 * 82-year-old patient with past medical history significant for coronary artery disease, hyperlipidemia, hypertension history of recurrent falls presents to the emergency department with complaints of confusion. Patient was brought in by EMS after she was noted to be confused. History was obtained from EMR as well as by family. Per family patient has not been taking her medications however A taken at bedside they feel that patient has been on her medications. * Blood was obtained in ER included CBC which showed normal white cell count hemoglobin of 11.3 hematocrit of 31 platelet count of 376 * Serum electrolyte [place] sodium 117 chloride of 83, creatinine 0.7 blood glucose 100 * Urinalysis is negative for any infectious process * CT head negative for acute intracranial process * 07/19: Patient seen and evaluated bedside alert to person however does get forgetful during conversation. Serum sodium levels 127 improving. Nephrology following. TSH within normal limits. Continue with frequent reorientation patient will need to be discharged to rehab facility once cleared by nephrology Objective - Vital Signs Vital signs: Vital Signs Temp 97.8 F 07/19/23 08:00 Pulse 68 07/19/23 08:00 Resp 18 07/19/23 08:00 BP 167/69 07/19/23 08:00 Pulse Ox 97 07/19/23 08:00 FiO2 Intake & Output 07/18/23 07/19/23 07/19/23 18:59 06:59 18:59 Output Total 850 Balance -850 Output: Urine 850 Other: Voiding Method External Catheter External Catheter # Voids 1 1 - Exam PHYSICAL EXAMINATION: GENERAL: The patient is alert and oriented x 1, not in any acute distress. Well developed, well nourished. HEENT: Pupils are round and equally reacting to light. EOMI. No scleral icterus. No conjunctival pallor. Normocephalic, atraumatic. No pharyngeal erythema. No thyromegaly. CARDIOVASCULAR: S1 and S2 present. No murmurs, rubs, or gallops. PULMONARY: Chest is clear to auscultation, no wheezing or crackles. ABDOMEN: Soft, nontender, nondistended, normoactive bowel sounds. No palpable organomegaly. MUSCULOSKELETAL: No joint swelling or deformity. EXTREMITIES: No cyanosis, clubbing, or pedal edema. NEUROLOGICAL: Gross neurological examination did not reveal any focal deficits. Impaired cognition and memory SKIN: No rashes. - Labs CBC & Chem 7: 07/19/23 07:16 07/19/23 07:16 Labs: Abnormal Lab Results - Last 24 Hours (Table) 07/18/23 07/19/23 07/19/23 Range/Units 14:44 07:16 07:16 RBC 3.64 L (3.80-5.40) m/uL Sodium 123 L 127 L (137-145) mmol/L Chloride 93 L 94 L (98-107) mmol/L Glucose 102 H (74-99) mg/dL Assessment and Plan Assessment: Assessment and plan * Acute metabolic encephalopathy * Acute hyponatremia * Coronary artery disease * Hypertension * Hyperlipidemia * In regards to acute encephalopathy CT head obtained negative for acute intracranial process. Noted to have acute hyponatremia continue to monitor basic metabolic panel, * Nephrology consulted, workup including serum muscularity urine osmole and urine sodium levels ordered. Continue IV hydration * Continue to hold hydrochlorothiazide which can contribute to hyponatremia. Appreciate input from nephrology * In regards to history of coronary artery disease and hypertension Continue Zocor and metoprolol * Will need input from physical therapy occupational therapy for placement * CODE STATUS is full code
[2023-07-19] MEDS: ATORVASTATIN 20 MG TAB PO SCH (20:45)
[2023-07-19] MEDS: hydrALAZINE HCL 20 MG/ML 1 ML VIAL IVP PRN (20:45)
[2023-07-20] MEDS: SODIUM CHLORIDE 0.9% 1,000 ML IV SCH (04:58)
[2023-07-20 07:17] LABS: HGB 11.4 gm/dL (11.4-16.0); MCH 31.4 pg (25.0-35.0); MCHC 33.4 g/dL (31.0-37.0); MCV 93.9 fL (80.0-100.0); Mean Platelet Volume 7.2; Platelet Count 363 k/uL (150-450); RBC 3.62 m/uL (3.80-5.40); RDW 13.2 % (11.5-15.5)
[2023-07-20 07:59] LABS: African American GFR (CKD) >90 (>60 ml/min/1.73 sqM); Anion Gap 4 mmol/L; Blood Urea Nitrogen 12 mg/dL (7-17); Calcium 8.9 mg/dL (8.4-10.2); Carbon Dioxide 27 mmol/L (22-30); Chloride 98 mmol/L (98-107); Glucose 102 mg/dL (74-99); Non-African American GFR(CKD) 84 (>60 ml/min/1.73 sqM); Potassium 3.7 mmol/L (3.5-5.1); Sodium 129 mmol/L (137-145)
[2023-07-20] MEDS: METOPROLOL SUCCINATE (ER) 25 MG TAB.ER.24H PO SCH ×2 (08:30→20:34)
[2023-07-20] MEDS: ENOXAPARIN 40 MG/0.4 ML SYRINGE SQ SCH (08:30)
--- NOTE | 2023-07-20 10:43 | P.PN ---
Subjective Patient is seen for follow-up for hyponatremia. Serum sodium has improved and it is at 129. Patient is maintained on normal saline. Patient is awake she denies any significant symptoms Urine osmolality 254 and urine sodium at 49 Blood pressure is elevated Tolerating oral intake. Objective - Vital Signs Vital signs: Vital Signs Temp 98.1 F 07/20/23 08:00 Pulse 80 07/20/23 08:00 Resp 16 07/20/23 08:00 BP 176/76 07/20/23 08:00 Pulse Ox 97 07/20/23 08:00 FiO2 Intake & Output 07/19/23 07/20/23 07/20/23 18:59 06:59 18:59 Intake Total 480 Output Total 450 1200 Balance -450 -1200 480 Intake: Oral 480 Output: Urine 450 1200 Other: Voiding Method External Catheter External Catheter # Voids 1 - Exam Awake, comfortable, no acute distress Examination of the heart S1 and S2 Examination of the lungs bilateral breath sounds are heard Abdomen is soft nontender Examination of lower extremities shows no significant edema GRAPHIC ARTIST exam grossly intact - Labs CBC & Chem 7: 07/20/23 06:39 07/20/23 06:39 Labs: Abnormal Lab Results - Last 24 Hours (Table) 07/20/23 07/20/23 Range/Units 06:39 06:39 RBC 3.62 L (3.80-5.40) m/uL Sodium 129 L (137-145) mmol/L Glucose 102 H (74-99) mg/dL Assessment and Plan Assessment: 1. Hyponatremia, appears hypovolemic and improved with normal saline. Blood pressure has been staying high. Urine osmolality and urine sodium was be ordered. Rule out toast syndrome with decreased intake of protein. Patient was also maintained on hydrochlorothiazide prior to admission and this is currently appropriately on hold. 2. Hypokalemia status post replacement. Etiology is thiazide diuretics 3. Dementia 4. Dyslipidemia Plan: DC IV fluids Maintain adequate oral intake particularly protein Resume Diovan but continue to hold hydrochlorothiazide. Increase dose of metoprolol further if needed
--- NOTE | 2023-07-20 16:49 | P.PN ---
Subjective Progress Note Date: 07/20/23 82-year-old patient with past medical history significant for coronary artery disease, hyperlipidemia, hypertension history of recurrent falls presents to the emergency department with complaints of confusion. Patient was brought in by EMS after she was noted to be confused. History was obtained from EMR as well as by family. Per family patient has not been taking her medications however A taken at bedside they feel that patient has been on her medications. Blood was obtained in ER included CBC which showed normal white cell count hemoglobin of 11.3 hematocrit of 31 platelet count of 376 Serum electrolyte [place] sodium 117 chloride of 83, creatinine 0.7 blood glucose 100 Urinalysis is negative for any infectious process CT head negative for acute intracranial process 07/20/2023 Patient seen and evaluated bedside alert to person however does get forgetful during conversation. Serum sodium levels 127 improving. Nephrology following. TSH within normal limits. Continue with frequent reorientation patient will need to be discharged to rehab facility once cleared by nephrology Serum sodium has improved and it is at 129; urine osmolality of 254, urine sodium at 49. Patient is maintained on normal saline. Nephrology recommending to continue with oral fluid intake along with optimal protein intake; Diovan discontinued; hydrochlorothiazide remains on hold Objective - Vital Signs Vital signs: Vital Signs Temp 98.1 F 07/20/23 08:00 Pulse 72 07/20/23 11:55 Resp 16 07/20/23 11:55 BP 168/75 07/20/23 11:55 Pulse Ox 98 07/20/23 11:55 FiO2 Intake & Output 07/19/23 07/20/23 07/20/23 18:59 06:59 18:59 Intake Total 480 Output Total 450 1200 Balance -450 -1200 480 Intake: Oral 480 Output: Urine 450 1200 Other: Voiding Method External Catheter External Catheter External Catheter # Voids 1 - Exam GENERAL: The patient is alert and oriented x 1, not in any acute distress. Well developed, well nourished. HEENT: Pupils are round and equally reacting to light. EOMI. No scleral icterus. No conjunctival pallor. Normocephalic, atraumatic. No pharyngeal erythema. No thyromegaly. CARDIOVASCULAR: S1 and S2 present. No murmurs, rubs, or gallops. PULMONARY: Chest is clear to auscultation, no wheezing or crackles. ABDOMEN: Soft, nontender, nondistended, normoactive bowel sounds. No palpable organomegaly. MUSCULOSKELETAL: No joint swelling or deformity. EXTREMITIES: No cyanosis, clubbing, or pedal edema. NEUROLOGICAL: Gross neurological examination did not reveal any focal deficits. Impaired cognition and memory SKIN: No rashes. - Labs CBC & Chem 7: 07/20/23 06:39 07/20/23 06:39 Labs: Abnormal Lab Results - Last 24 Hours (Table) 07/20/23 07/20/23 Range/Units 06:39 06:39 RBC 3.62 L (3.80-5.40) m/uL Sodium 129 L (137-145) mmol/L Glucose 102 H (74-99) mg/dL Assessment and Plan Assessment: Assessment and plan * Acute metabolic encephalopathy * Acute hyponatremia * Coronary artery disease * Hypertension * Hyperlipidemia * In regards to acute encephalopathy CT head obtained negative for acute intracranial process. Noted to have acute hyponatremia continue to monitor basic metabolic panel, * Nephrology consulted, workup including serum muscularity urine osmole and urine sodium levels ordered. Continue IV hydration * Continue to hold hydrochlorothiazide which can contribute to hyponatremia. Appreciate input from nephrology * In regards to history of coronary artery disease and hypertension Continue Zocor and metoprolol * Will need input from physical therapy occupational therapy for placement * CODE STATUS is full code
[2023-07-20] MEDS: ATORVASTATIN 20 MG TAB PO SCH (20:33)
[2023-07-21 08:14] LABS: Basophils % (A) 0 %; Eosinophils # (A) 0.1 k/uL (0-0.7); Eosinophils % (A) 2 %; HCT 32.8 % (34.0-46.0); HGB 10.7 gm/dL (11.4-16.0); Lymphocytes % (A) 14 %; MCHC 32.7 g/dL (31.0-37.0); MCV 94.7 fL (80.0-100.0); Mean Platelet Volume 7.2; Monocytes # (A) 0.4 k/uL (0-1.0); Monocytes % (A) 5 %; Neutrophils # (A) 5.3 k/uL (1.3-7.7); Neutrophils % (A) 78 %; Platelet Count 371 k/uL (150-450); RBC 3.46 m/uL (3.80-5.40); RDW 13.4 % (11.5-15.5); WBC 6.8 k/uL (3.8-10.6)
[2023-07-21] MEDS: VALSARTAN 80 MG TAB PO SCH (08:31)
[2023-07-21] MEDS: METOPROLOL SUCCINATE (ER) 25 MG TAB.ER.24H PO SCH ×2 (08:31→19:58)
[2023-07-21] MEDS: ENOXAPARIN 40 MG/0.4 ML SYRINGE SQ SCH (08:31)
[2023-07-21 08:36] LABS: African American GFR (CKD) >90 (>60 ml/min/1.73 sqM); Anion Gap 5 mmol/L; Blood Urea Nitrogen 13 mg/dL (7-17); Calcium 8.6 mg/dL (8.4-10.2); Carbon Dioxide 23 mmol/L (22-30); Chloride 102 mmol/L (98-107); Glucose 93 mg/dL (74-99); Non-African American GFR(CKD) 86 (>60 ml/min/1.73 sqM); Potassium 3.8 mmol/L (3.5-5.1); Sodium 130 mmol/L (137-145)
--- NOTE | 2023-07-21 11:24 | P.PN ---
Subjective Patient is seen for follow-up for hyponatremia. Serum sodium has improved and it is at 130. Status post normal saline Patient is awake she denies any significant symptoms Urine osmolality 254 and urine sodium at 49 Restarted Diovan for uncontrolled hypertension and blood pressure is better. Tolerating oral intake. Objective - Vital Signs Vital signs: Vital Signs Temp 97.6 F 07/21/23 08:00 Pulse 83 07/21/23 08:00 Resp 16 07/21/23 08:00 BP 151/71 07/21/23 08:00 Pulse Ox 97 07/21/23 08:00 FiO2 Intake & Output 07/20/23 07/21/23 07/21/23 18:59 06:59 18:59 Intake Total 1680 240 Output Total 650 750 Balance 1030 -750 240 Intake: Oral 1680 240 Output: Urine 650 750 Other: Voiding Method External Catheter External Catheter External Catheter - Exam Awake, comfortable, no acute distress Examination of the heart S1 and S2 Examination of the lungs bilateral breath sounds are heard Abdomen is soft nontender Examination of lower extremities shows no significant edema 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 Hyponatremia, appears hypovolemic on initial admission, and improved with normal saline. Blood pressure has been staying high. Urine osmolality and urine sodium was be ordered. Rule out toast syndrome with decreased intake of protein. Patient was also maintained on hydrochlorothiazide prior to admission and this is currently appropriately on hold. 2. Hypokalemia status post replacement. Etiology is thiazide diuretics 3. Dementia 4. Dyslipidemia 5. Hypertension uncontrolled. Status post discontinuation of hydrochlorothi azide and Diovan has been restarted. Blood pressure is better controlled now. Plan: Continue off of IV fluids Maintain adequate oral intake particularly protein Continue Diovan but continue to hold hydrochlorothiazide. Increase dose of metoprolol further if needed
--- NOTE | 2023-07-21 14:49 | P.PN ---
Subjective Progress Note Date: 07/21/23 82-year-old patient with past medical history significant for coronary artery disease, hyperlipidemia, hypertension history of recurrent falls presents to the emergency department with complaints of confusion. Patient was brought in by EMS after she was noted to be confused. History was obtained from EMR as well as by family. Per family patient has not been taking her medications however A taken at bedside they feel that patient has been on her medications. Blood was obtained in ER included CBC which showed normal white cell count hemoglobin of 11.3 hematocrit of 31 platelet count of 376 Serum electrolyte [place] sodium 117 chloride of 83, creatinine 0.7 blood glucose 100 Urinalysis is negative for any infectious process CT head negative for acute intracranial process 07/20/2023 Patient seen and evaluated bedside alert to person however does get forgetful during conversation. Serum sodium levels 127 improving. Nephrology following. TSH within normal limits. Continue with frequent reorientation patient will need to be discharged to rehab facility once cleared by nephrology Serum sodium has improved and it is at 129; urine osmolality of 254, urine sodium at 49. Patient is maintained on normal saline. Nephrology recommending to continue with oral fluid intake along with optimal protein intake; Diovan discontinued; hydrochlorothiazide remains on hold 07/21/2023 Patient is seen and evaluated with family at bedside; denies any specific complaints Vital signs are reviewed temperature of 97.6, pulse 83, rested 16, blood pressure 151/71 Blood work is reviewed and reveals a sodium level that has improved to 1:30; urine osmolality of 254 and urine sodium of 49 -- Patient hasn't placed back on Diovan for uncontrolled hypertension; hydrocodone thiazide remains on hold; metoprolol can be increased as the - Nephrology on board and recommending to continue with IV fluids, maintain adequate oral protein intake Objective - Vital Signs Vital signs: Vital Signs Temp 97.6 F 07/21/23 08:00 Pulse 83 07/21/23 08:00 Resp 16 07/21/23 08:00 BP 151/71 07/21/23 08:00 Pulse Ox 97 07/21/23 08:00 FiO2 Intake & Output 07/20/23 07/21/23 07/21/23 18:59 06:59 18:59 Intake Total 1680 240 Output Total 650 750 Balance 1030 -750 240 Intake: Oral 1680 240 Output: Urine 650 750 Other: Voiding Method External Catheter External Catheter External Catheter - Exam GENERAL: The patient is alert and oriented x 1, not in any acute distress. Well developed, well nourished. HEENT: Pupils are round and equally reacting to light. EOMI. No scleral icterus. No conjunctival pallor. Normocephalic, atraumatic. No pharyngeal erythema. No thyromegaly. CARDIOVASCULAR: S1 and S2 present. No murmurs, rubs, or gallops. PULMONARY: Chest is clear to auscultation, no wheezing or crackles. ABDOMEN: Soft, nontender, nondistended, normoactive bowel sounds. No palpable organomegaly. MUSCULOSKELETAL: No joint swelling or deformity. EXTREMITIES: No cyanosis, clubbing, or pedal edema. NEUROLOGICAL: Gross neurological examination did not reveal any focal deficits. Impaired cognition and memory SKIN: No rashes. - Labs CBC & Chem 7: 07/21/23 06:50 07/21/23 06:50 Labs: Abnormal Lab Results - Last 24 Hours (Table) 07/21/23 07/21/23 Range/Units 06:50 06:50 RBC 3.46 L (3.80-5.40) m/uL Hgb 10.7 L (11.4-16.0) gm/dL Hct 32.8 L (34.0-46.0) % Sodium 130 L (137-145) mmol/L Assessment and Plan Assessment: Assessment and plan * Acute metabolic encephalopathy * Acute hyponatremia * Coronary artery disease * Hypertension * Hyperlipidemia * In regards to acute encephalopathy CT head obtained negative for acute intracranial process. Noted to have acute hyponatremia continue to monitor basic metabolic panel, * Nephrology consulted, workup including serum muscularity urine osmole and urine sodium levels ordered. Continue IV hydration * Continue to hold hydrochlorothiazide which can contribute to hyponatremia. Appreciate input from nephrology * In regards to history of coronary artery disease and hypertension Continue Zocor and metoprolol * Will need input from physical therapy occupational therapy for placement * CODE STATUS is full code
[2023-07-21] MEDS: ATORVASTATIN 20 MG TAB PO SCH (19:58)
[2023-07-21] MEDS: hydrALAZINE HCL 20 MG/ML 1 ML VIAL IVP PRN (20:04)
[2023-07-22] MEDS: hydrALAZINE HCL 20 MG/ML 1 ML VIAL IVP PRN (04:32)
[2023-07-22 06:50] LABS: African American GFR (CKD) >90 (>60 ml/min/1.73 sqM); Anion Gap 5 mmol/L; Blood Urea Nitrogen 14 mg/dL (7-17); Carbon Dioxide 26 mmol/L (22-30); Chloride 100 mmol/L (98-107); Glucose 102 mg/dL (74-99); Non-African American GFR(CKD) 84 (>60 ml/min/1.73 sqM); Potassium 3.5 mmol/L (3.5-5.1); Sodium 131 mmol/L (137-145)
[2023-07-22] MEDS: ENOXAPARIN 40 MG/0.4 ML SYRINGE SQ SCH (08:29)
[2023-07-22] MEDS: VALSARTAN 80 MG TAB PO SCH (08:29)
[2023-07-22] MEDS: METOPROLOL SUCCINATE (ER) 25 MG TAB.ER.24H PO SCH ×2 (08:29→19:36)
--- NOTE | 2023-07-22 10:18 | P.PN ---
Subjective Patient is seen for follow-up for hyponatremia. Serum sodium has improved and it is at 131. Status post normal saline Patient is awake she denies any significant symptoms Urine osmolality 254 and urine sodium at 49 Restarted Diovan for uncontrolled hypertension and blood pressure is better. Tolerating oral intake. Objective - Vital Signs Vital signs: Vital Signs Temp 97.9 F 07/22/23 04:30 Pulse 82 07/22/23 08:00 Resp 16 07/22/23 08:00 BP 144/62 07/22/23 08:00 Pulse Ox 98 07/22/23 08:00 FiO2 Intake & Output 07/21/23 07/22/23 07/22/23 18:59 06:59 18:59 Intake Total 960 Output Total 900 1100 Balance 60 -1100 Intake: Oral 960 Output: Urine 900 1100 Other: Voiding Method External Catheter External Catheter # Voids 1 - Exam Awake, comfortable, no acute distress. 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 Hyponatremia, appears hypovolemic on initial admission, and improved with normal saline. Blood pressure has been staying high. Urine osmolality 254 and random urine sodium of 49 . Rule out toast syndrome with decreased intake of protein. Patient was also maintained on hydrochlorothiazide prior to admission and this is currently appropriately on hold. 2. Hypokalemia status post replacement. Etiology is thiazide diuretics 3. Dementia 4. Dyslipidemia 5. Hypertension uncontrolled. Status post discontinuation of hydrochlorothiazide and Diovan has been restarted. Blood pressure is better controlled now. Plan: Continue off of IV fluids Maintain adequate oral intake particularly protein Continue Diovan but continue to hold hydrochlorothiazide. Increase dose of metoprolol further if needed
--- NOTE | 2023-07-22 16:00 | P.PN ---
Subjective Progress Note Date: 07/22/23 82-year-old patient with past medical history significant for coronary artery disease, hyperlipidemia, hypertension history of recurrent falls presents to the emergency department with complaints of confusion. Patient was brought in by EMS after she was noted to be confused. History was obtained from EMR as well as by family. Per family patient has not been taking her medications however A taken at bedside they feel that patient has been on her medications. Blood was obtained in ER included CBC which showed normal white cell count hemoglobin of 11.3 hematocrit of 31 platelet count of 376 Serum electrolyte [place] sodium 117 chloride of 83, creatinine 0.7 blood glucose 100 Urinalysis is negative for any infectious process CT head negative for acute intracranial process 07/20/2023 Patient seen and evaluated bedside alert to person however does get forgetful during conversation. Serum sodium levels 127 improving. Nephrology following. TSH within normal limits. Continue with frequent reorientation patient will need to be discharged to rehab facility once cleared by nephrology Serum sodium has improved and it is at 129; urine osmolality of 254, urine sodium at 49. Patient is maintained on normal saline. Nephrology recommending to continue with oral fluid intake along with optimal protein intake; Diovan discontinued; hydrochlorothiazide remains on hold 07/21/2023 Patient is seen and evaluated with family at bedside; denies any specific complaints Vital signs are reviewed temperature of 97.6, pulse 83, rested 16, blood pressure 151/71 Blood work is reviewed and reveals a sodium level that has improved to 1:30; urine osmolality of 254 and urine sodium of 49 -- Patient hasn't placed back on Diovan for uncontrolled hypertension; hydrocodone thiazide remains on hold; metoprolol can be increased as the - Nephrology on board and recommending to continue with IV fluids, maintain adequate oral protein intake 07/22/2023 Patient is seen and evaluated; staff at bedside bathing patient Vital signs are reviewed and are stable; blood pressure of 145/65; patient has been placed back on home dose of Diovan; hydrochlorothiazide remains on hold Sodium level continues to trend up and is at 1:30 this morning; patient is being monitored off of IV fluids with adequate oral intake, particularly proteins - Patient has been evaluated by ET and is recommended skilled rehab, patient and caregiver initially refused skilled rehab; patient is agreeable this morning; wants some time to think about transferred to skilled rehab prior to be discharged home -- Discharge home in next 24 hours if sodium remains stable and patient refuses skilled rehab; case management has been consulted for transfer to [facility] if patie nt is agreeable Objective - Vital Signs Vital signs: Vital Signs Temp 97.9 F 07/22/23 04:30 Pulse 67 07/22/23 11:31 Resp 16 07/22/23 11:31 BP 145/65 07/22/23 11:31 Pulse Ox 97 07/22/23 11:31 FiO2 Intake & Output 07/21/23 07/22/23 07/22/23 18:59 06:59 18:59 Intake Total 960 Output Total 900 1100 Balance 60 -1100 Intake: Oral 960 Output: Urine 900 1100 Other: Voiding Method External Catheter External Catheter External Catheter # Voids 1 - Exam GENERAL: The patient is alert and oriented x 1, not in any acute distress. Well developed, well nourished. HEENT: Pupils are round and equally reacting to light. EOMI. No scleral icterus. No conjunctival pallor. Normocephalic, atraumatic. No pharyngeal erythema. No thyromegaly. CARDIOVASCULAR: S1 and S2 present. No murmurs, rubs, or gallops. PULMONARY: Chest is clear to auscultation, no wheezing or crackles. ABDOMEN: Soft, nontender, nondistended, normoactive bowel sounds. No palpable organomegaly. MUSCULOSKELETAL: No joint swelling or deformity. EXTREMITIES: No cyanosis, clubbing, or pedal edema. NEUROLOGICAL: Gross neurological examination did not reveal any focal deficits. Impaired cognition and memory SKIN: No rashes. - Labs CBC & Chem 7: 07/21/23 06:50 07/22/23 06:20 Labs: Abnormal Lab Results - Last 24 Hours (Table) 07/22/23 Range/Units 06:20 Sodium 131 L (137-145) mmol/L Glucose 102 H (74-99) mg/dL Assessment and Plan Assessment: Assessment and plan * Acute metabolic encephalopathy * Acute hyponatremia * Coronary artery disease * Hypertension * Hyperlipidemia * In regards to acute encephalopathy CT head obtained negative for acute intracranial process. Noted to have acute hyponatremia continue to monitor basic metabolic panel, * Nephrology consulted, workup including serum muscularity urine osmole and urine sodium levels ordered. Continue IV hydration * Continue to hold hydrochlorothiazide which can contribute to hyponatremia. Appreciate input from nephrology * In regards to history of coronary artery disease and hypertension Continue Zocor and metoprolol * Will need input from physical therapy occupational therapy for placement * CODE STATUS is full code
[2023-07-22] MEDS: ATORVASTATIN 20 MG TAB PO SCH (19:36)
[2023-07-23] MEDS: VALSARTAN 80 MG TAB PO SCH (07:54)
[2023-07-23] MEDS: ENOXAPARIN 40 MG/0.4 ML SYRINGE SQ SCH (07:54)
[2023-07-23] MEDS: METOPROLOL SUCCINATE (ER) 25 MG TAB.ER.24H PO SCH (07:54)
--- NOTE | 2023-07-23 09:26 | P.PN ---
Subjective Patient is seen in follow-up for hyponatremia. Sodium level 131 yesterday. Off IV fluids. Denies vomiting or diarrhea. Oral intake is good. Vital signs are stable. General: No acute distress. HEENT: Head exam is unremarkable. LUNGS: No audible rhonchi or wheezes. HEART: Rate and Rhythm are regular. ABDOMEN: Nontender. EXTREMITITES: No edema. Objective - Vital Signs Vital signs: Vital Signs Temp 97.5 F L 07/22/23 20:00 Pulse 72 07/23/23 01:16 Resp 16 07/23/23 01:16 BP 161/76 07/23/23 01:16 Pulse Ox 95 07/23/23 01:16 FiO2 Intake & Output 07/22/23 07/23/23 07/23/23 18:59 06:59 18:59 Intake Total 118 Output Total 800 Balance -800 118 Intake: Oral 118 Output: Urine 800 Other: Voiding Method External Catheter External Catheter # Voids 1 # Bowel Movements 1 - Labs CBC & Chem 7: 07/21/23 06:50 07/22/23 06:20 Assessment and Plan Plan: Assessment: 1. Hyponatremia. Initially hypovolemic and improved normal saline. Now euvolemic. Component of poor solute intake. Urine sodium 49 and urine osmolality 254. Was on thiazide diuretic which is now held. TSH normal. 2. Benign hypertension. 3. Dementia. 4. Hypokalemia from diuretics and poor intake. Replaced. Better. Plan: Avoid thiazide diuretics. 1200 mL fluid restriction. Encourage oral intake, particularly protein. Increase dose of Diovan. Follow up outpatient in 1 week post discharge.
[2023-07-23 09:35] LABS: African American GFR (CKD) >90 (>60 ml/min/1.73 sqM); Anion Gap 8 mmol/L; Blood Urea Nitrogen 14 mg/dL (7-17); Calcium 8.7 mg/dL (8.4-10.2); Carbon Dioxide 24 mmol/L (22-30); Chloride 97 mmol/L (98-107); Glucose 134 mg/dL (74-99); Non-African American GFR(CKD) 84 (>60 ml/min/1.73 sqM); Potassium 3.7 mmol/L (3.5-5.1); Sodium 129 mmol/L (137-145)
[2023-07-23 09:57] VITALS: TEMP 98.2
[2023-07-23 12:04] VITALS: BP 147/70; PULSE 67; RESP 18
[2023-07-23] MEDS ORDERED: POTASSIUM CHLORIDE ER 20 MEQ TAB.ER PO SCH (12:30)
[2023-07-23] MEDS ORDERED: VALSARTAN 80 MG TAB PO SCH (21:00)
== END 2023-07-23 14:10 | disposition home health service (06) | DRG 640 ==
LOC: EC 23:20 → 3SCARD 07-18 01:21
PROVIDERS: ADMIT Hospitalist; ATTEND Hospitalist
DX: E87.1 Hypo-osmolality and hyponatremia (principal); G93.41 Metabolic encephalopathy; I10 Essential (primary) hypertension; E78.5 Hyperlipidemia, unspecified; T50.2X5A Adverse effect of carbonic-anhydrase inhibitors, benzothiadiazides and other diuretics, initial encounter; I25.10 Atherosclerotic heart disease of native coronary artery without angina pectoris; F03.90 Unspecified dementia, unspecified severity, without behavioral disturbance, psychotic disturbance, mood disturbance, and anxiety; E86.1 Hypovolemia; E87.6 Hypokalemia; R29.6 Repeated falls; X58.XXXA Exposure to other specified factors, initial encounter; Z82.49 Family history of ischemic heart disease and other diseases of the circulatory system; Z91.148 Patient's other noncompliance with medication regimen for other reason; Z98.51 Tubal ligation status; Z91.81 History of falling; Z82.5 Family history of asthma and other chronic lower respiratory diseases
CPT/HCPCS: 36415; 70450; 80048; 81001; 83935; 84300; 84443; 85025; 85027; 93005; 96360; 96361; 99285

== ENCOUNTER → 2023-10-18 | Outpatient (CLI) | payer MEDICARE ==
[2023-10-19 02:52] LABS: T4, Free (Free Thyroxine) 1.15 ng/dL (0.80-1.80)
== END | disposition home or self-care (01) ==
LOC: LABWHC1 13:09
PROVIDERS: ATTEND Psychiatry & Neurology Neurology
DX: R41.3 Other amnesia (principal); R41.0 Disorientation, unspecified; Z79.899 Other long term (current) drug therapy
CPT/HCPCS: 36415; 82607; 84439; 84443

== ENCOUNTER 2024-01-31 07:48 | Emergency (ER) | payer MEDICARE ==
--- NOTE | 2024-01-31 08:18 | ED ---
General Adult HPI - General Chief complaint: Fall Stated complaint: Fall, back pain Time Seen by Provider: 01/31/24 08:00 Source: patient, RN notes reviewed, old records reviewed Mode of arrival: ambulatory Limitations: no limitations - History of Present Illness Initial comments: Patient is an 83-year-old female who presents emergency department after a fall. Fell 3 days ago. Has had worsening weakness since. Chronically is ambulatory with a walker and has joint pain from prior hip fracture as well as leg fracture. They have noticed for the last 1 to 2 months worsening swelling of the right lower extremity as well. Had prior surgery on left hip and femur. Patient is at her mental status baseline with she is mild dementia however has been having reduced motion and movement at home secondary to the right hip. Family was concerned and brought her in for evaluation. Patient is also complaining of lower back pain. No known loss of consciousness. States she feels like she lost her balance while ambulating with a walker, leaned up against the wall and slid down it. Is still able to move bilateral lower extremities but has primary pain in the right hip. Denies headaches, chest pain, shortness of breath. Denies any abdominal pain, nausea, vomiting. No change in appetite. Presents with family over concern for acute changes over the last 3 days. - Related Data Home Medications Medication Instructions Recorded Confirmed Simvastatin [Zocor] 40 mg PO HS 10/05/22 01/31/24 Aspirin EC [Ecotrin Low Dose] 81 mg PO DAILY 01/31/24 01/31/24 Ferrous Sulfate [Feosol] 325 mg PO W/BRKFST 01/31/24 01/31/24 Levothyroxine Sodium [Synthroid] 25 mcg PO DAILY 01/31/24 01/31/24 Previous Rx's Medication Instructions Recorded Famotidine [Pepcid] 20 mg PO DAILY #30 tablet 07/23/23 Metoprolol Succinate (ER) [Toprol 25 mg PO BID #60 tab 07/23/23 XL] Valsartan [Diovan] 80 mg PO BID #60 tab 07/23/23 Cephalexin [Keflex] 500 mg PO Q12HR 7 Days #14 cap 01/31/24 Allergies Allergy/AdvReac Type Severity Reaction Status Date / Time No Known Allergies Allergy Verified 01/31/24 10:33 Review of Systems ROS Statement: Those systems with pertinent positive or pertinent negative responses have been documented in the HPI. Review of Systems: CONST: Denies fever EYES: Denies blurry vision ENT: Denies nasal congestion C/V: Denies Chest pain RESP: Denies shortness of breath GI: Denies abdominal pain : Denies dysuria SKIN: Denies rash. MSK: Endorses right hip, back pain NEURO: Denies headache ROS Other: All systems not noted in ROS Statement are negative. Past Medical History Past Medical History: Coronary Artery Disease (CAD), Hyperlipidemia, Hypertension, Osteoarthritis (OA) Additional Past Medical History / Comment(s): hx falls, states fx right hip with surgery x2 and needs a 3rd surgery., uses walker., back & shoulder pain., see cardiology h & P. History of Any Multi-Drug Resistant Organisms: None Reported Past Surgical History: Joint Replacement, Orthopedic Surgery, Tubal Ligation Additional Past Surgical History / Comment(s): HX FALL WITH LEFT HIP FX SURGERY, HX FALL WITH RIGHT HIP SURGERY X2. Past Anesthesia/Blood Transfusion Reactions: No Reported Reaction Past Psychological History: No Psychological Hx Reported Smoking Status: Never smoker Past Alcohol Use History: None Reported Past Drug Use History: None Reported - Past Family History Mother Family Medical History: No Reported History Father Family Medical History: Asthma Additional Family Medical History / Comment(s): blood disorder- had too much blood . Sister(s) Family Medical History: Diabetes Mellitus Brother(s) Family Medical History: Cancer, Hypertension Son(s) Family Medical History: No Reported History Additional Family Medical History / Comment(s): pacemaker Daughter(s) Family Medical History: Coronary Artery Disease (CAD) Additional Family Medical History / Comment(s): 2 Daughters -Cardiac stents. General Exam - General Exam Comments Initial Comments: General: Appears in no acute distress. HEAD: Normal with no signs of head trauma. Negative Wolfe sign. No raccoon eyes. EYES: PERRLA, EOMI, conjunctiva normal, no discharge. Pupils are 3 mm and equal bilaterally. ENT: Hearing grossly intact, normal oropharynx. RESPIRATORY: Clear breath sounds bilaterally. No wheezes, rales, or rhonchi. C/V: Regular rate and rhythm. S1 and S2 auscultated, pitting edema in the right lower extremity., peripheral pulses 2+ and intact throughout ABD: Abd is soft, nontender, nondistended EXT: Normal range of motion, no obvious deformity. Minimal midline lumbar spine tenderness to palpation. No significant midline cervical or thoracic spine tenderness to palpation. Pelvis is stable. Tenderness palpation over the right hip. Able to move the right hip as well as left hip however limited secondary to pain in the hip. No tenderness in the lower extremities distal to the hips. SKIN: No rashes or lesions observed on exposed skin. NEURO: Alert and oriented at her baseline. Able to move all 4 extremities. Definitely weak in the right hip as well as left hip. No sensory deficits. So mewhat chronically weak in the legs per family and patient. GCS of 15 at this time. Limitations: no limitations Course Vital Signs 01/31/24 01/31/24 01/31/24 07:51 09:56 12:00 Temperature 98.4 F 98.1 F 98.1 F Pulse Rate 70 63 64 Respiratory 18 18 16 Rate Blood Pressure 188/78 141/68 194/68 O2 Sat by Pulse 96 96 96 Oximetry 01/31/24 13:22 Temperature 97.6 F Pulse Rate 70 Respiratory 18 Rate Blood Pressure 197/66 O2 Sat by Pulse 97 Oximetry Medical Decision Making - Medical Decision Making Was pt. sent in by a medical professional or institution (, PA, [employer]OR, urgent care, hospital, or alf...) When possible be specific @ -No Did you speak to anyone other than the patient for history (EMS, parent, family, police, friend...)? What history was obtained from this source @ -Family assist with patient's past medical history due to her history of dementia. Did you review nursing and triage notes (agree or disagree)? Why? @ -I reviewed and agree with nursing and triage notes Were old charts reviewed (outside hosp., previous admission, EMS record, old EKG, old radiological studies, urgent care reports/EKG's, alf records)? Report findings @ -Charts reviewed Differential Diagnosis (chest pain, altered mental status, abdominal pain women, abdominal pain men, vaginal bleeding, weakness, fever, dyspnea, syncope, headache, dizziness, GI bleed, back pain, seizure, CVA, palpatations, mental health, musculoskeletal)? @ -Differential Musculoskeletal Muscular strain, contusion, ligament sprain, fracture, arthritis, septic arthritis, bursitis, cellulitis, muscle spasm, nerve compression, DVT, arterial occlusion, herpes zoster, electrolyte abnormality, tumor.... This is not meant to be in all inclusive list EKG interpreted by me (3pts min.). @ -As above X-rays interpreted by me (1pt min.). @ -Chest x-ray reveals no obvious acute cardiopulmonary process. CT interpreted by me (1pt min.). @ -CT brain, lumbar spine, pelvis negative for any obvious acute injury. Our C T does have some compression deformities which are likely chronic. Patient is not tender at those areas. U/S interpreted by me (1pt. min.). @ -Ultrasound negative for DVT. What testing was considered but not performed or refused? (CT, X-rays, U/S, labs)? Why? @ -I offered viral testing which was declined. What meds were considered but not given or refused? Why? @ -I offered analgesia medications which were declined. Did you discuss the management of the patient with other professionals (prof silkeionals i.e. , PA, [employer] PROFESSOR, lab, RT, psych nurse, social psychologist, trade union secretary, teacher, state patrol officer, manager case management)? Give summary @ -No Was smoking cessation discussed for >3mins.? @ -No Was critical care preformed (if so, how long)? @ -No Were there social determinants of health that impacted care today? How? (Homelessness, low income, unemployed, alcoholism, drug addiction, transportation, low edu. Level, literacy, decrease access to med. care, senior care, rehab)? @ -No Was there de-escalation of care discussed even if they declined (Discuss DNR or withdrawal of care, Hospice)? DNR status @ -No What co-morbidities impacted this encounter? (DM, HTN, Smoking, COPD, CAD, Cancer, CVA, ARF, Chemo, Hep., AIDS, mental health diagnosis, sleep apnea, morbid obesity)? @ -None Was patient admitted / discharged? Hospital course, mention meds given and route, prescriptions, significant lab abnormalities, going to OR and other pertinent info. @ -Patient presents with what appears to be a mechanical fall from 3 days ago. She is adamant it was no fainting and no loss of consciousness. Complaints in clude bilateral hip pain, as well as reduced mobility at home. She chronically ambulates with a walker but seems more weak lately. Did not lose consciousness per patient and family. He is not on blood thinners. Presents for further evaluation. Vital signs are within acceptable limits. We will obtain CT brain, lumbar spine, pelvis as well as a chest x-ray. Also obtain an ultrasound of the right lower extremity to evaluate for DVT due to the edema which has been present for the last 2 months but patient has no symptoms of being short of breath at all. Patient and family were in agreement this plan. Basic screening labs as well as EKG will also be obtained. I did offer analgesia medications which were declined. Patient will be given 500 cc fluid bolus at this time. EKG shows no signs of acute ischemia. Patient's laboratory studies remarkable for borderline UTI. Imaging was delayed but ultimately negative for any obvious acute injuries. I updated the patient and family. I did offer admission at this time for possible placement however family and patient refused. They feel comfortable taking the patient home. I believe this is reasonable. Strict return precautions discussed. Patient started on Keflex for UTI. I will provide the patient with a prescription for Keflex. I instructed the patient to follow up with their PCP in the next 1-3 days.. I explained that the patient should return to the emergency department if they experience any worsening symptoms. Strict return precautions were discussed with the patient. The patient expressed understanding of these instructions. I answered all questions that the patient had. The patient was discharged home in good condition with their prescriptions and follow up information. Undiagnosed new problem with uncertain prognosis? @ -No Drug Therapy requiring intensive monitoring for toxicity (Heparin, Nitro, Insulin, Cardizem)? @ -No Were any procedures done? @ -No Diagnosis/symptom? @ -Fall, UTI, hip pain Acute, or Chronic, or Acute on Chronic? @ -Acute Uncomplicated (without systemic symptoms) or Complicated (systemic symptoms)? @ -Uncomplicated Side effects of treatment? @ -None Exacerbation, Progression, or Severe Exacerbation] @ -No Poses a threat to life or bodily function? @ -No - Lab Data Result diagrams: 01/31/24 08:32 01/31/24 08:32 Lab Results 01/31/24 01/31/24 01/31/24 Range/Units 08:32 08:32 08:32 WBC 7.5 (3.8-10.6) k/uL RBC 3.89 (3.80-5.40) m/uL Hgb 12.2 (11.4-16.0) gm/dL Hct 36.5 (34.0-46.0) % MCV 93.8 (80.0-100.0) fL MCH 31.3 (25.0-35.0) pg MCHC 33.4 (31.0-37.0) g/dL RDW 13.3 (11.5-15.5) % Plt Count 333 (150-450) k/uL MPV 7.9 Neutrophils % 73 % Lymphocytes % 16 % Monocytes % 6 % Eosinophils % 2 % Basophils % 1 % Neutrophils # 5.5 (1.3-7.7) k/uL Lymphocytes # 1.2 (1.0-4.8) k/uL Monocytes # 0.5 (0-1.0) k/uL Eosinophils # 0.2 (0-0.7) k/uL Basophils # 0.1 (0-0.2) k/uL PT 10.3 (10.0-12.5) sec INR 0.9 (<1.2) APTT 28.2 (22.0-30.0) sec Sodium 135 L (137-145) mmol/L Potassium 4.1 (3.5-5.1) mmol/L Chloride 103 (98-107) mmol/L Carbon Dioxide 25 (22-30) mmol/L Anion Gap 7 mmol/L BUN 22 H (7-17) mg/dL Creatinine 0.70 (0.52-1.04) mg/dL Est GFR (CKD-EPI)AfAm >90 (>60 ml/min/1.73 sqM) Est GFR (CKD-EPI)NonAf 79 (>60 ml/min/1.73 sqM) Glucose 100 H (74-99) mg/dL Calcium 9.0 (8.4-10.2) mg/dL Total Bilirubin 0.5 (0.2-1.3) mg/dL AST 22 (14-36) U/L ALT 17 (4-34) U/L Alkaline Phosphatase 94 (38-126) U/L Total Protein 6.0 L (6.3-8.2) g/dL Albumin 3.3 L (3.5-5.0) g/dL Urine Color Urine Appearance (Clear) Urine pH (5.0-8.0) Ur Specific [place] (1.001-1.035) Urine Protein (Negative) Urine Glucose (UA) (Negative) Urine Ketones (Negative) Urine Blood (Negative) Urine Nitrite (Negative) Urine Bilirubin (Negative) Urine Urobilinogen (<2.0) mg/dL Ur Leukocyte Esterase (Negative) Urine RBC (0-5) /hpf Urine WBC (0-5) /hpf Ur Squamous Epith Cells (0-4) /hpf Urine Bacteria (None) /hpf 01/31/24 Range/Units 08:39 WBC (3.8-10.6) k/uL RBC (3.80-5.40) m/uL Hgb (11.4-16.0) gm/dL Hct (34.0-46.0) % MCV (80.0-100.0) fL MCH (25.0-35.0) pg MCHC (31.0-37.0) g/dL RDW (11.5-15.5) % Plt Count (150-450) k/uL MPV Neutrophils % % Lymphocytes % % Monocytes % % Eosinophils % % Basophils % % Neutrophils # (1.3-7.7) k/uL Lymphocytes # (1.0-4.8) k/uL Monocytes # (0-1.0) k/uL Eosinophils # (0-0.7) k/uL Basophils # (0-0.2) k/uL PT (10.0-12.5) sec INR (<1.2) APTT (22.0-30.0) sec Sodium (137-145) mmol/L Potassium (3.5-5.1) mmol/L Chloride (98-107) mmol/L Carbon Dioxide (22-30) mmol/L Anion Gap mmol/L BUN (7-17) mg/dL Creatinine (0.52-1.04) mg/dL Est GFR (CKD-EPI)AfAm (>60 ml/min/1.73 sqM) Est GFR (CKD-EPI)NonAf (>60 ml/min/1.73 sqM) Glucose (74-99) mg/dL Calcium (8.4-10.2) mg/dL Total Bilirubin (0.2-1.3) mg/dL AST (14-36) U/L ALT (4-34) U/L Alkaline Phosphatase (38-126) U/L Total Protein (6.3-8.2) g/dL Albumin (3.5-5.0) g/dL Urine Color Colorless Urine Appearance Cloudy H (Clear) Urine pH 7.5 (5.0-8.0) Ur Specific [place] 1.011 (1.001-1.035) Urine Protein Trace H (Negative) Urine Glucose (UA) Negative (Negative) Urine Ketones Negative (Negative) Urine Blood Small H (Negative) Urine Nitrite Negative (Negative) Urine Bilirubin Negative (Negative) Urine Urobilinogen <2.0 (<2.0) mg/dL Ur Leukocyte Esterase Large H (Negative) Urine RBC 6 H (0-5) /hpf Urine WBC 35 H (0-5) /hpf Ur Squamous Epith Cells 1 (0-4) /hpf Urine Bacteria Rare H (None) /hpf - EKG Data -: EKG Interpreted by Me EKG Comments: 12-lead Electrocardiogram Interpretation Note EKG was reviewed and interpreted by myself. 12-lead ECG performed at 0818 is interpreted by me as revealing normal sinus rhythm with a right bundle branch block at a rate of 65 beats per minute. Left axis deviation. ME interval is 161 ms, QRS durations 153 ms, QTc is 478 ms.. There were no ST or T wave abnormalities to suggest myocardial ischemia or injury. R wave progression across the precordium was satisfactory. By my interpretation this EKG is non- diagnostic for acute ischemia. EKG is unchanged from EKG from July 2023. Disposition Clinical Impression: UTI (urinary tract infection), Fall, Hip pain Disposition: HOME SELF-CARE Instructions (If sedation given, give patient instructions): Urinary Tract Infection in Women (DC) Prescriptions: Cephalexin [Keflex] 500 mg PO Q12HR 7 Days #14 cap Is patient prescribed a controlled substance at d/c from ED?: No Referrals: Geovanny Holland MD [Primary Care Provider] - 1-2 days Time of Disposition: 13:13
[2024-01-31] MEDS: SODIUM CHLORIDE 0.9% 500 ML 500 ML IV STA (08:32)
[2024-01-31 08:52] LABS: Basophils # (A) 0.1 k/uL (0-0.2); Basophils % (A) 1 %; Eosinophils # (A) 0.2 k/uL (0-0.7); Eosinophils % (A) 2 %; HCT 36.5 % (34.0-46.0); HGB 12.2 gm/dL (11.4-16.0); Lymphocytes # (A) 1.2 k/uL (1.0-4.8); Lymphocytes % (A) 16 %; MCH 31.3 pg (25.0-35.0); MCHC 33.4 g/dL (31.0-37.0); MCV 93.8 fL (80.0-100.0); Mean Platelet Volume 7.9; Monocytes # (A) 0.5 k/uL (0-1.0); Monocytes % (A) 6 %; Neutrophils # (A) 5.5 k/uL (1.3-7.7); Neutrophils % (A) 73 %; Platelet Count 333 k/uL (150-450); RBC 3.89 m/uL (3.80-5.40); RDW 13.3 % (11.5-15.5); WBC 7.5 k/uL (3.8-10.6)
[2024-01-31 09:02] LABS: ALT 17 U/L (4-34); AST 22 U/L (14-36); African American GFR (CKD) >90 (>60 ml/min/1.73 sqM); Albumin 3.3 g/dL (3.5-5.0); Alkaline Phosphatase 94 U/L (38-126); Anion Gap 7 mmol/L; Blood Urea Nitrogen 22 mg/dL (7-17); Carbon Dioxide 25 mmol/L (22-30); Chloride 103 mmol/L (98-107); Glucose 100 mg/dL (74-99); Non-African American GFR(CKD) 79 (>60 ml/min/1.73 sqM); Potassium 4.1 mmol/L (3.5-5.1); Sodium 135 mmol/L (137-145); Total Bilirubin 0.5 mg/dL (0.2-1.3)
[2024-01-31 09:15] LABS: INR 0.9 (<1.2); Partial Thromboplastin Time 28.2 sec (22.0-30.0); Prothrombin Time 10.3 sec (10.0-12.5)
--- NOTE | 2024-01-31 10:03 | XR ---
EXAMINATION TYPE: XR chest 1V portable DATE OF EXAM: 01/31/2024 COMPARISON: 05/26/2023 HISTORY: Chest pain TECHNIQUE: Single frontal view of the chest is obtained. FINDINGS: There is no focal air space opacity, pleural effusion, or pneumothorax seen. The cardiac silhouette size is within normal limits. The osseous structures are intact. Diffuse osteopenia and arthropathy of the shoulders. Chronic deformities of the humeral neck region bilaterally. Atheroscler otic change aorta. Underlying emphysematous changes stable. IMPRESSION: No acute process.
--- NOTE | 2024-01-31 10:32 | CT ---
EXAMINATION TYPE: CT brain wo con CT DLP: 1095.4 mGycm, Automated exposure control for dose reduction was used. DATE OF EXAM: 01/31/2024 9:50 AM COMPARISON: 07/18/2023. CLINICAL INDICATION:Female, 83 years old with history of fall, pain, Fall TECHNIQUE: Brain: Axial CT images of the brain were obtained with coronal and sagittal reformats created and rev iewed. Contrast used: None. Oral contrast used: None. FINDINGS: Brain: Extra-axial spaces: No abnormal extra-axial fluid collections. Ventricular system: Prominent ventricles and sulci consistent with age-related involution Cerebral parenchyma: No acute intraparenchymal hemorrhage or mass effect. The sanchez-white junction is well differentiated. Cerebellum: Unremarkable. Mass effect: No evidence of midline shift. Intracranial vasculature: unremarkable Soft tissues: Normal. Calvarium/osseous structures: No depressed skull fracture. Paranasal sinuses and mastoid air cells: Mild scattered paranasal sinus disease. Visualized orbits: Orbital contents are intact. IMPRESSION: No acute intracranial process. Age related changes
--- NOTE | 2024-01-31 10:49 | CT ---
EXAMINATION TYPE: CT lumbar spine wo con CT DLP: 1064.8 mGycm, Automated exposure control for dose reduction was used. DATE OF EXAM: 01/31/2024 9:50 AM COMPARISON: None.. CLINICAL INDICATION:Female, 83 years old with history of low back pain following fall.; PHH, Fall TECHNIQUE: Multiple axial images were obtained from the midportion of T11 through the sacroiliac fletcher nts. Soft tissue and bone windows in coronal and sagittal planes were obtained and reviewed. 3-D ref ormats of the bones were created on a separate workstation and submitted for review. Contrast used: mL of , (None, if empty). Oral contrast used: (None, if empty). FINDINGS: Alignment: There are 5 lumbar type vertebral bodies within normal alignment. Bone: L1, L2, and L3 superior endplate compression deformities impression. At L2 there is retropulsi on of the superior endplate fracture but only mild central canal stenosis. Discs: Height is relatively maintained. Vacuum disc phenomena is seen at L2-L3 Other: None IMPRESSION: 1. Vertebral body superior endplate compression deformities as stated above. Most likely related to o steoporosis.
--- NOTE | 2024-01-31 10:54 | CT ---
EXAMINATION TYPE: CT pelvis wo con CT DLP: 1064.8 mGycm, Automated exposure control for dose reduction was used. DATE OF EXAM: 01/31/2024 9:50 AM COMPARISON: CT abdomen pelvis most recent from CLINICAL INDICATION:Female, 83 years old with history of bilateral hip pain following fall 3 d ago.; Fall TECHNIQUE: Axial CT pelvis wo con;Sagittal and coronal reformats were created on a separate workstat ion. Contrast used: mL of , (none if empty) Oral contrast used: without Oral Contrast (none if empty) FINDINGS: LOWER CHEST: Unremarkable Pelvis: structures are unremarkable. Other included soft tissues are unremarkable. There are bilateral compression screw. Fracture repair hardware. Hardware appears intact. There is se dona secondary osteoarthritis of the right hip IMPRESSION: 1. No acute appreciated. Hardware from previous hip fracture repairs is intact.
[2024-01-31 11:45] LABS: Appearance,Urine Cloudy (Clear); Bacteria,Urine Rare /hpf; Bilirubin,Urine Negative (Negative); Blood,Urine Small (Negative); Color,Urine Colorless; Glucose,Urine (UA) Negative (Negative); Ketones,Urine Negative (Negative); Leukocyte Esterase,Urine Large (Negative); Nitrite,Urine Negative (Negative); PH, Urine 7.5 (5.0-8.0); Protein,Urine Trace (Negative); RBC,Urine 6 /hpf (0-5); Specific Gravity,Urine 1.011 (1.001-1.035); Squamous Epithelial Cell,Urine 1 /hpf (0-4); Urobilinogen,Urine <2.0 mg/dL (<2.0); WBC,Urine 35 /hpf (0-5)
--- NOTE | 2024-01-31 12:39 | US ---
EXAMINATION TYPE: US venous doppler duplex LE RT DATE OF EXAM: 01/31/2024 10:34 AM COMPARISON: NONE CLINICAL INDICATION: Female, 83 years old with history of leg edema; edema SIDE PERFORMED: Right TECHNIQUE: The lower extremity deep venous system is examined utilizing real time linear array sonog july with graded compression, doppler sonography and color-flow sonography. VESSELS IMAGED: Common Femoral Vein Deep Femoral Vein Greater Saphenous Vein * Femoral Vein Popliteal Vein Small Saphenous Vein * Proximal Calf Veins (* superficial vessels) Right Leg: Negative for DVT IMPRESSION: Grayscale, color doppler, spectral doppler imaging performed of the deep veins of the lo wer extremities. There is normal flow, compressibility, vascular waveforms.
[2024-01-31] MEDS: CEPHALEXIN 500 MG CAP PO STA (13:20)
[2024-01-31 13:38] VITALS: BP 197/66; PULSE 70; RESP 18; TEMP 97.6
== END 2024-01-31 13:22 | disposition home or self-care (01) ==
LOC: EC 07:48
DX: M25.551 Pain in right hip (principal); M25.552 Pain in left hip; N39.0 Urinary tract infection, site not specified; R60.0 Localized edema; I45.10 Unspecified right bundle-branch block; W19.XXXA Unspecified fall, initial encounter
CPT/HCPCS: 36415; 70450; 71045; 72131; 72192; 80053; 81001; 85025; 85610; 85730; 96360; 96361; 99285

== ENCOUNTER 2024-05-24 13:46 | Emergency (ER) | payer MEDICARE ==
[2024-05-24 14:10] VITALS: RESP 16
--- NOTE | 2024-05-24 14:17 | ED ---
Fall HPI - General Stated Complaint: Fall head injury Time Seen by Provider: 05/24/24 13:46 Source: patient, EMS Mode of arrival: EMS - History of Present Illness Initial Comments: 83-year-old female with a history of hypertension heart disease hyperlipidemia osteoarthritis who apparently was moving a chair when she got dizzy lost her balance and fell backwards striking the chair. No loss of consciousness she did have some bleeding she was brought in by EMS with a c-collar she complains of no neck pain no loss of function of her upper or lower extremities normal baseline mentation per paramedics. Patient states her tetanus shots are within the last 5 years. She does have a history of hide hyponatremia she states he drinks about 3 large glasses of water per day. No other current complaints no modifying factors no palpitations. MD Complaint: fall - Related Data Home Medications Medication Instructions Recorded Confirmed Simvastatin [Zocor] 40 mg PO HS 10/05/22 01/31/24 Aspirin EC [Ecotrin Low Dose] 81 mg PO DAILY 01/31/24 01/31/24 Ferrous Sulfate [Feosol] 325 mg PO W/BRKFST 01/31/24 01/31/24 Levothyroxine Sodium [Synthroid] 25 mcg PO DAILY 01/31/24 01/31/24 Previous Rx's Medication Instructions Recorded Famotidine [Pepcid] 20 mg PO DAILY #30 tablet 07/23/23 Metoprolol Succinate (ER) [Toprol 25 mg PO BID #60 tab 07/23/23 XL] Valsartan [Diovan] 80 mg PO BID #60 tab 07/23/23 Cephalexin [Keflex] 500 mg PO Q12HR 7 Days #14 cap 01/31/24 Allergies Allergy/AdvReac Type Severity Reaction Status Date / Time No Known Allergies Allergy Verified 05/24/24 14:11 Review of Systems ROS Statement: Those systems with pertinent positive or pertinent negative responses have been documented in the HPI. ROS Other: All systems not noted in ROS Statement are negative. Past Medical History Past Medical History: Coronary Artery Disease (CAD), Hyperlipidemia, Hypertension, Osteoarthritis (OA) Additional Past Medical History / Comment(s): hx falls, states fx right hip with surgery x2 and needs a 3rd surgery., uses walker., back & shoulder pain., see cardiology h & P. History of Any Multi-Drug Resistant Organisms: None Reported Past Surgical History: Joint Replacement, Orthopedic Surgery, Tubal Ligation Additional Past Surgical History / Comment(s): HX FALL WITH LEFT HIP FX SURGERY, HX FALL WITH RIGHT HIP SURGERY X2. Past Anesthesia/Blood Transfusion Reactions: No Reported Reaction Past Psychological History: No Psychological Hx Reported Smoking Status: Never smoker Past Alcohol Use History: None Reported Past Drug Use History: None Reported - Past Family History Mother Family Medical History: No Reported History Father Family Medical History: Asthma Additional Family Medical History / Comment(s): blood disorder- had too much blood . Sister(s) Family Medical History: Diabetes Mellitus Brother(s) Family Medical History: Cancer, Hypertension Son(s) Family Medical History: No Reported History Additional Family Medical History / Comment(s): pacemaker Daughter(s) Family Medical History: Coronary Artery Disease (CAD) Additional Family Medical History / Comment(s): 2 Daughters -Cardiac stents. General Exam - General Exam Comments Initial Comments: A well-developed well-nourished awake alert oriented x 4 female Jojo Coma Scale of 15 Limitations: no limitations General appearance: alert Head exam: Present: normocephalic, other (Midline occipital scalp laceration c urrently no active bleeding evidence of a hematoma no step-off or crepitation.) Eye exam: Present: normal appearance, PERRL, EOMI. Absent: scleral icterus, conjunctival injection, periorbital swelling ENT exam: Present: mucous membranes dry Neck exam: Present: normal inspection. Absent: tenderness, meningismus, lymphadenopathy Respiratory exam: Present: normal lung sounds bilaterally. Absent: respiratory distress, wheezes, rales, rhonchi, stridor Cardiovascular Exam: Present: regular rate, normal rhythm, normal heart sounds. Absent: systolic murmur, diastolic murmur, rubs, gallop, clicks GI/Abdominal exam: Present: soft, normal bowel sounds. Absent: distended, tenderness, guarding, rebound, rigid Extremities exam: Present: normal inspection, full ROM, normal capillary refill. Absent: tenderness, pedal edema, joint swelling, calf tenderness Back exam: Present: normal inspection Neurological exam: Present: alert, oriented X3, CN II-XII intact Psychiatric exam: Present: normal affect, normal mood Skin exam: Present: warm, dry, normal color, other (Midline occipital scalp laceration). Absent: rash Course Vital Signs 05/24/24 05/24/24 13:51 15:14 Temperature 98.7 F 98.0 F Pulse Rate 71 67 Respiratory 16 16 Rate Blood Pressure 196/87 197/82 O2 Sat by Pulse 96 97 Oximetry Procedures - Laceration Laceration #1 Consent Obtained: verbal consent Site: scalp Description: stellate Depth: simple, single layer Anesthetic Used: lidocaine 1% Anesthesia Technique: local infiltration Amount (mls): 10 Pre-repair: wound explored, deep structures intact Type of Sutures: nylon, vicryl Size of Sutures: 3-0 Number of Sutures: 2 Technique: simple, interrupted Patient Tolerated Procedure: well Additional Comments: Additionally a total of 14 varinder were performed and used to approximate the edges. There is 2 wounds one was 4 cm long and irregular the other 1 was 2 cm long this was repaired and approximated using 2 varinder the other 12 varinder were used and the 4 cm long laceration along with 2 sutures and 3-0 Vicryl was used to get bleeding control followed by a 3-0 nylon which was later found to be available. Medical Decision Making - Medical Decision Making I did clean and repair the wounds on the patient's scalp I did remove the collar originally has the initial clinical exam was negative CT of the head neck was negative except for the hematoma seen on the occipital scalp. The wounds were cleaned and evaluated blood was removed from the hair and the wounds were re paired as stated above. Patient did tolerate this well. Was pt. sent in by a medical professional or institution (, PA, FIELD PROJECT MANAGER, urgent care, hospital, or alf...) When possible be specific @ -No Did you speak to anyone other than the patient for history (EMS, parent, family, police, friend...)? What history was obtained from this source @ -No Did you review nursing and triage notes (agree or disagree)? Why? @ -I reviewed and agree with nursing and triage notes Were old charts reviewed (outside hosp., previous admission, EMS record, old EKG, old radiological studies, urgent care reports/EKG's, alf records)? Report findings @ -Old charts were reviewed Differential Diagnosis (chest pain, altered mental status, abdominal pain women, abdominal pain men, vaginal bleeding, weakness, fever, dyspnea, syncope, headache, dizziness, GI bleed, back pain, seizure, CVA, palpatations, mental health, musculoskeletal)? @ -, Dizziness, fall, scalp laceration] EKG interpreted by me (3pts min.). @ -As above EKG interpreted by me done at the time of arrival sinus rhythm at 63 parable 223 QRS duration 142 QT/QTc 457/464 right bundle branch block pattern left anterior fascicular block also L evidence of LVH. Artifact present no acute changes seen X-rays interpreted by me (1pt min.). @ -None done CT interpreted by me (1pt min.). @ -CT scan head and neck interpreted by me no acute process seen except there is a scalp hematoma noted however. U/S interpreted by me (1pt. min.). @ -None done What testing was considered but not performed or refused? (CT, X-rays, U/S, lab s)? Why? @ -None What meds were considered but not given or refused? Why? @ -None Did you discuss the management of the patient with other professionals (professionals i.e. , PA, FIELD PROJECT MANAGER, lab, RT, psych nurse, social worker clinical, aviculturist, teacher, chief sales officer, correctional case records supervisor)? Give summary @ -No Was smoking cessation discussed for >3mins.? @ -No Was critical care preformed (if so, how long)? @ -No Were there social determinants of health that impacted care today? How? (Homelessness, low income, unemployed, alcoholism, drug addiction, transportation, low edu. Level, literacy, decrease access to med. care, long term, rehab)? @ -No Was there de-escalation of care discussed even if they declined (Discuss DNR or withdrawal of care, Hospice)? DNR status @ -No What co-morbidities impacted this encounter? (DM, HTN, Smoking, COPD, CAD, Cancer, CVA, ARF, Chemo, Hep., AIDS, mental health diagnosis, sleep apnea, morbid obesity)? @ -History of hyponatremia, hypertension, CAD osteoarthritis Was patient admitted / discharged? Hospital course, mention meds given and route, prescriptions, significant lab abnormalities, going to OR and other pertinent info. @ -Hospital course charged Undiagnosed new problem with uncertain prognosis? @ -No Drug Therapy requiring intensive monitoring for toxicity (Heparin, Nitro, Insulin, Cardizem)? @ -No Were any procedures done? @ -No Diagnosis/symptom? @ -FAll, scalp laceration Acute, or Chronic, or Acute on Chronic? @ -Acute Uncomplicated (without systemic symptoms) or Complicated (systemic symptoms)? @ -Default Side effects of treatment? @ -No Exacerbation, Progression, or Severe Exacerbation? @ -No Poses a threat to life or bodily function? How? (Chest pain, [place], [place], pneumonia, PE, COPD, DKA, ARF, appy, cholecystitis, CVA, Diverticulitis, Homicidal, Suicidal, threat to staff... and all critical care pts) @ -No - Lab Data Result diagrams: 05/24/24 14:22 05/24/24 14:22 Lab Results 05/24/24 05/24/24 05/24/24 Range/Units 14:22 14:22 14:22 WBC 8.3 (3.8-10.6) k/uL RBC 4.00 (3.80-5.40) m/uL Hgb 12.1 (11.4-16.0) gm/dL Hct 36.7 (34.0-46.0) % MCV 91.8 (80.0-100.0) fL MCH 30.2 (25.0-35.0) pg MCHC 32.9 (31.0-37.0) g/dL RDW 13.2 (11.5-15.5) % Plt Count 358 (150-450) k/uL MPV 7.5 Neutrophils % 72 % Lymphocytes % 20 % Monocytes % 5 % Eosinophils % 1 % Basophils % 0 % Neutrophils # 6.0 (1.3-7.7) k/uL Lymphocytes # 1.7 (1.0-4.8) k/uL Monocytes # 0.4 (0-1.0) k/uL Eosinophils # 0.1 (0-0.7) k/uL Basophils # 0.0 (0-0.2) k/uL Sodium 132 L (137-145) mmol/L Potassium 4.2 (3.5-5.1) mmol/L Chloride 101 (98-107) mmol/L Carbon Dioxide 26 (22-30) mmol/L Anion Gap 5 mmol/L BUN 20 H (7-17) mg/dL Creatinine 0.75 (0.52-1.04) mg/dL Est GFR (CKD-EPI)AfAm 84 (>60 ml/min/1.73 sqM) Est GFR (CKD-EPI)NonAf 73 (>60 ml/min/1.73 sqM) Glucose 97 (74-99) mg/dL Calcium 9.3 (8.4-10.2) mg/dL Magnesium 1.9 (1.6-2.3) mg/dL Total Bilirubin 0.6 (0.2-1.3) mg/dL AST 25 (14-36) U/L ALT 12 (4-34) U/L Alkaline Phosphatase 77 (38-126) U/L Troponin I 0.015 (0.000-0.034) ng/mL Total Protein 6.3 (6.3-8.2) g/dL Albumin 3.7 (3.5-5.0) g/dL Disposition Clinical Impression: Fall, Scalp laceration Disposition: HOME SELF-CARE Condition: Good Instructions (If sedation given, give patient instructions): Care For Your Stitches (ED), Laceration (ED), Fall Prevention for Older Adults (ED), Head Laceration (ED) Additional Instructions: Suture removal in 10 days along with varinder Is patient prescribed a controlled substance at d/c from ED?: No Referrals: None,Stated [Primary Care Provider] - 1-2 days Time of Disposition: 17:19 Decision Date: 05/24/24 Decision Time: 17:19
[2024-05-24 14:56] LABS: Basophils % (A) 0 %; Eosinophils # (A) 0.1 k/uL (0-0.7); Eosinophils % (A) 1 %; HCT 36.7 % (34.0-46.0); HGB 12.1 gm/dL (11.4-16.0); Lymphocytes # (A) 1.7 k/uL (1.0-4.8); Lymphocytes % (A) 20 %; MCH 30.2 pg (25.0-35.0); MCHC 32.9 g/dL (31.0-37.0); MCV 91.8 fL (80.0-100.0); Mean Platelet Volume 7.5; Monocytes # (A) 0.4 k/uL (0-1.0); Monocytes % (A) 5 %; Neutrophils % (A) 72 %; Platelet Count 358 k/uL (150-450); RDW 13.2 % (11.5-15.5); WBC 8.3 k/uL (3.8-10.6)
--- NOTE | 2024-05-24 15:04 | CT ---
EXAMINATION TYPE: CT brain cspine wo con CT DLP: 1183.5 mGycm, Automated exposure control for dose reduction was used. DATE OF EXAM: 05/24/2024 2:38 PM COMPARISON: None. CLINICAL INDICATION:Female, 83 years old with history of trauma; Fall, laceration to posterior head TECHNIQUE: Brain: Multiple axial CT images of the brain were obtained without IV contrast. Cspine: Axial CT images from the skull base to the inferior aspect of T2 we obtained without intraven ous contrast. Coronal and sagittal reformatted images were also reviewed. . FINDINGS: Brain: Extra-axial spaces: No abnormal extra-axial fluid collections. Ventricular system: Within normal limits Cerebral parenchyma: Cerebral atrophy. No acute intraparenchymal hemorrhage or mass effect. The sanchez -white junction is well differentiated. Scattered hypoattenuating areas are seen within the white mat ter. Cerebellum: Unremarkable. Mass effect: No evidence of midline shift. Intracranial vasculature: unremarkable Soft tissues: r small hematoma over the posterior scalp measuring up to 14 mm. Edema also present thr oughout the scalp. Calvarium/osseous structures: No depressed skull fracture. Paranasal sinuses and mastoid air cells: Clear. Visualized orbits: Orbital contents are intact. Cervical spine: Fracture: None. Osseous structures: Multilevel degenerative disc disease changes with endplate spurring and disc oste ophyte complex's. Vertebral alignment: Within normal limits. Spinal canal/Neural Foramina: No evidence of significant spinal canal narrowing. No evidence for sign ificant neural foraminal stenosis. Neck soft tissues: Prevertebral soft tissues are within normal limits. Other: The airway is patent. The lung apices are clear. Atherosclerosis of the carotid bifurcations. IMPRESSION: 1. No acute intracranial process. 2. Nonspecific white matter changes, likely secondary to chronic small vessel ischemic disease. 3. No evidence of cervical spine fracture. 4. Posterior scalp hematoma. No evidence for fracture 5. Mild multilevel degenerative disc disease.
[2024-05-24 15:05] LABS: African American GFR (CKD) 84 (>60 ml/min/1.73 sqM); Anion Gap 5 mmol/L; Blood Urea Nitrogen 20 mg/dL (7-17); Carbon Dioxide 26 mmol/L (22-30); Chloride 101 mmol/L (98-107); Glucose 97 mg/dL (74-99); Potassium 4.2 mmol/L (3.5-5.1); Sodium 132 mmol/L (137-145)
[2024-05-24 15:06] LABS: ALT 12 U/L (4-34); AST 25 U/L (14-36); Albumin 3.7 g/dL (3.5-5.0); Alkaline Phosphatase 77 U/L (38-126); Calcium 9.3 mg/dL (8.4-10.2); Magnesium 1.9 mg/dL (1.6-2.3); Non-African American GFR(CKD) 73 (>60 ml/min/1.73 sqM); Total Bilirubin 0.6 mg/dL (0.2-1.3); Total Protein 6.3 g/dL (6.3-8.2)
[2024-05-24] MEDS: LIDOCAINE 1% INJ 10MG/ML (20 ML MDV) SQ ONE (15:11)
[2024-05-24 15:15] VITALS: BP 197/82; PULSE 67; TEMP 98
== END 2024-05-24 17:40 | disposition home or self-care (01) ==
LOC: EC 13:46
DX: S01.01XA Laceration without foreign body of scalp, initial encounter (principal); W18.30XA Fall on same level, unspecified, initial encounter
CPT/HCPCS: 36415; 93005; 80053; 83735; 84484; 85025; 72125; 70450; 99284; 12001; J2001

== ENCOUNTER 2024-10-25 13:37 | Emergency (ER) | payer MEDICARE ==
--- NOTE | 2024-10-25 15:00 | XR ---
EXAMINATION TYPE: XR knee complete RT DATE OF EXAM: 10/25/2024 2:26 PM COMPARISON: None available. CLINICAL INDICATION: Female, 84 years old with history of right knee injury; [facility] TECHNIQUE: XR knee complete RT views submitted.. FINDINGS: No acute fracture or aggressive osseous lesion. Osseous structures are demineralized. [place] mpartmental degenerative arthritis. Ossific density in the lateral compartment of the right knee whic h could reflect a loose body or chondrocalcinosis. No unexpected radiopaque foreign body. Moderate si zed suprapatellar joint effusion. IMPRESSION: 1. No acute fracture or dislocation. 2. Moderate-sized suprapatellar joint effusion. 3. Ossific density in the lateral compartment of the right knee which could reflect a loose body or chondrocalcinosis. [facility], , 10/25/2024 2:58 PM
[2024-10-25] MEDS: ACETAMINOPHEN TAB 325 MG TAB PO STA (15:06)
--- NOTE | 2024-10-25 15:07 | CT ---
EXAMINATION TYPE: CT brain cspine wo con DATE OF EXAM: 10/25/2024 2:21 PM COMPARISON: Previous CT study dated 05/24/2024. CLINICAL INDICATION: Female, 84 years old with history of pain; pain after fall and AMS TECHNIQUE: Brain: Multiple axial CT images of the brain were obtained without IV contrast. Cspine: Axial CT images from the skull base to the inferior aspect of T2 we obtained without intraven ous contrast. Coronal and sagittal reformatted images were also reviewed. . CT DLP: 1163.8 mGycm, Automated exposure control for dose reduction was used. FINDINGS: Brain: No acute intracranial hemorrhage, midline shift or significant acute mass effect. Basal cisterns appe ar patent. No sizable extra-axial fluid collection. Ventricles and sulci are prominent compatible wit h generalized cerebral volume loss. Patchy periventricular and subcortical white matter hypoattenuati on likely reflecting chronic microvascular ischemic disease. Mastoid air cells and paranasal sinuses are patent. No large scalp hematoma.. No associated depressed calvarial fracture. Cervical spine: Fracture: None. Osseous structures: Unremarkable Vertebral alignment: Within normal limits. Spinal canal/Neural Foramina: Multilevel facet arthropathy and uncovertebral hypertrophy contribute t o cause varying degrees of neural foraminal stenosis at varying levels. Neck soft tissues: Prevertebral soft tissues are within normal limits. Other: The airway is patent. The lung apices are clear. IMPRESSION: 1. No acute intracranial process. 2. No evidence of an acute fracture or traumatic subluxation of the cervical spine. [facility], , 10/25/2024 3:05 PM
[2024-10-25 15:11] LABS: Appearance,Urine Turbid (Clear); Bacteria,Urine Many /hpf; Bilirubin,Urine Negative (Negative); Blood,Urine Small (Negative); Color,Urine Light Red; Glucose,Urine (UA) Negative (Negative); Ketones,Urine Negative (Negative); Leukocyte Esterase,Urine Large (Negative); Mucus,Urine Rare /hpf; Nitrite,Urine Negative (Negative); Protein,Urine 2+ (Negative); RBC,Urine 11 /hpf (0-5); Squamous Epithelial Cell,Urine 2 /hpf (0-4); WBC,Urine >182 /hpf (0-5)
--- NOTE | 2024-10-25 15:29 | ED ---
Lower Extremity Injury HPI - General Source: patient, EMS, RN notes reviewed Mode of arrival: EMS Limitations: altered mental status <Stacey Loo - Last Filed: 10/25/24 15:21> <Carisa Cantu - Last Filed: 10/25/24 22:21> - General Chief Complaint: Extremity Injury, Lower Stated Complaint: Fall/has dementia Time Seen by Provider: 10/25/24 15:21 - History of Present Illness Initial Comments: 84-year-old female with history of dementia presenting for fall this morning. Patient lives with ex- who is patient's primary caregiver and reports patient had a slip and fall from standing in the kitchen today. Patient fell onto her right hip and hit her head. Denies loss of conscious. Denies blood thinners. Patient is having difficulty ambulating since the fall. According to family, patients mentation is at baseline. Patient endorses right knee and right hip pain. Family also reports patient has had foul-smelling urine over the past week. (Stacey Loo) - Related Data Home Medications Medication Instructions Recorded Confirmed Simvastatin [Zocor] 40 mg PO HS 10/05/22 01/31/24 Aspirin EC [Ecotrin Low Dose] 81 mg PO DAILY 01/31/24 01/31/24 Ferrous Sulfate [Feosol] 325 mg PO W/BRKFST 01/31/24 01/31/24 Levothyroxine Sodium [Synthroid] 25 mcg PO DAILY 01/31/24 01/31/24 Previous Rx's Medication Instructions Recorded Famotidine [Pepcid] 20 mg PO DAILY #30 tablet 07/23/23 Metoprolol Succinate (ER) [Toprol 25 mg PO BID #60 tab 07/23/23 XL] Valsartan [Diovan] 80 mg PO BID #60 tab 07/23/23 Cephalexin [Keflex] 500 mg PO Q12HR 7 Days #14 cap 01/31/24 Cephalexin [Keflex] 500 mg PO Q6HR #40 cap 10/25/24 Allergies Allergy/AdvReac Type Severity Reaction Status Date / Time No Known Allergies Allergy Verified 10/25/24 13:43 Review of Systems ROS Other: All systems not noted in ROS Statement are negative. <Stacey Loo - Last Filed: 10/25/24 15:21> ROS Other: All systems not noted in ROS Statement are negative. <Carisa Cantu - Last Filed: 10/25/24 22:21> ROS Statement: Those systems with pertinent positive or pertinent negative responses have been documented in the HPI. Past Medical History Past Medical History: Coronary Artery Disease (CAD), Dementia, Hyperlipidemia, Hypertension, Osteoarthritis (OA) Additional Past Medical History / Comment(s): hx falls, states fx right hip with surgery x2 and needs a 3rd surgery., uses walker., back & shoulder pain., see cardiology h & P. History of Any Multi-Drug Resistant Organisms: None Reported Past Surgical History: Joint Replacement, Orthopedic Surgery, Tubal Ligation Additional Past Surgical History / Comment(s): HX FALL WITH LEFT HIP FX SURGERY, HX FALL WITH RIGHT HIP SURGERY X2. Past Anesthesia/Blood Transfusion Reactions: No Reported Reaction Past Psychological History: No Psychological Hx Reported Smoking Status: Never smoker Past Alcohol Use History: None Reported Past Drug Use History: None Reported - Past Family History Mother Family Medical History: No Reported History Father Family Medical History: Asthma Additional Family Medical History / Comment(s): blood disorder- had too much blood . Sister(s) Family Medical History: Diabetes Mellitus Brother(s) Family Medical History: Cancer, Hypertension Son(s) Family Medical History: No Reported History Additional Family Medical History / Comment(s): pacemaker Daughter(s) Family Medical History: Coronary Artery Disease (CAD) Additional Family Medical History / Comment(s): 2 Daughters -Cardiac stents. <Stacey Loo - Last Filed: 10/25/24 15:21> General Exam Limitations: altered mental status (A&O x 2, at patient's baseline) General appearance: alert, in no apparent distress Head exam: Present: atraumatic, normocephalic, normal inspection Eye exam: Present: normal appearance, PERRL, EOMI. Absent: scleral icterus, conjunctival injection, periorbital swelling ENT exam: Present: normal exam, mucous membranes moist Neck exam: Present: normal inspection. Absent: tenderness, meningismus, lymphadenopathy Respiratory exam: Present: normal lung sounds bilaterally. Absent: respiratory distress, wheezes, rales, rhonchi, stridor Cardiovascular Exam: Present: regular rate, normal rhythm, normal heart sounds. Absent: systolic murmur, diastolic murmur, rubs, gallop, clicks Right Hip exam: Present: normal inspection, full ROM, tenderness, shortening (Shortening of right leg). Absent: swelling, abrasion, laceration, deformity, erythema, external rotation, internal rotation Upper Leg exam: Present: normal inspection, full ROM. Absent: tenderness, swelling Knee exam: Present: normal inspection, full ROM, tenderness (Anterior knee tenderness). Absent: swelling, abrasion, dislocation, erythema Lower Leg exam: Present: normal inspection, full ROM. Absent: tenderness, swelling, abrasion Ankle exam: Present: normal inspection, full ROM. Absent: tenderness, swelling Foot/Toe exam: Present: normal inspection, full ROM. Absent: tenderness, swe lling Neurovascular tendon exam: Present: no vascular compromise. Absent: pulse deficit, abnormal cap refill, sensory deficit Neurological exam: Present: alert. Absent: oriented X3 (A&O x 2, at patient's baseline) Psychiatric exam: Present: normal affect, normal mood Skin exam: Present: warm, dry, intact, normal color. Absent: rash <Stacey Loo - Last Filed: 10/25/24 15:21> Course Vital Signs 10/25/24 10/25/24 13:40 16:52 Temperature 98.5 F 98.0 F Pulse Rate 72 76 Respiratory 20 18 Rate Blood Pressure 167/66 156/70 O2 Sat by Pulse 99 98 Oximetry Medical Decision Making <Stacey Loo - Last Filed: 10/25/24 15:21> - Radiology Data Radiology results: report reviewed, image reviewed <Carisa Cantu - Last Filed: 10/25/24 22:21> - Medical Decision Making Was pt. sent in by a medical professional or institution (, PA, CIGARETTE MACHINE OPERATOR, urgent care, hospital, or half-way...) When possible be specific @ -[No] Did you speak to anyone other than the patient for history (EMS, parent, family, police, friend...)? What history was obtained from this source @ -Daughter and EMS provided history Did you review nursing and triage notes (agree or disagree)? Why? @ -[I reviewed and agree with nursing and triage notes] Were old charts reviewed (outside hosp., previous admission, EMS record, old EKG, old radiological studies, urgent care reports/EKG's, half-way records)? Report findings @ -[No old charts were reviewed] Differential Diagnosis (chest pain, altered mental status, abdominal pain women, abdominal pain men, vaginal bleeding, weakness, fever, dyspnea, syncope, headache, dizziness, GI bleed, back pain, seizure, CVA, palpatations, mental health, musculoskeletal)? @ -Differential Musculoskeletal Muscular strain, contusion, ligament sprain, fracture, arthritis, septic arthritis, bursitis, cellulitis, muscle spasm, nerve compression, DVT, arterial occlusion, herpes zoster, electrolyte abnormality, tumor.... This is not meant to be in all inclusive list EKG interpreted by me (3pts min.). @ -None X-rays interpreted by me (1pt min.). @ -X-ray right knee reveals no acute fracture, x-ray right hip pending at time of signout CT interpreted by me (1pt min.). @ -CT brain and C-spine reveals no acute process U/S interpreted by me (1pt. min.). @ -[None done] What testing was considered but not performed or refused? (CT, X-rays, U/S, labs)? Why? @ -[None] What meds were considered but not given or refused? Why? @ -[None] Did you discuss the management of the patient with other professionals (professionals i.e. , PA, CIGARETTE MACHINE OPERATOR, lab, RT, psych nurse, social secretary, radiological technologist, teacher, security officers and guards, patient case manager)? Give summary @ -[No] Was smoking cessation discussed for >3mins.? @ -[No] Was critical care preformed (if so, how long)? @ -[No] Were there social determinants of health that impacted care today? How? (Homelessness, low income, unemployed, alcoholism, drug addiction, transportation, low edu. Level, literacy, decrease access to med. care, retirement, rehab)? @ -[No] Was there de-escalation of care discussed even if they declined (Discuss DNR or withdrawal of care, Hospice)? DNR status @ -[No] What co-morbidities impacted this encounter? (DM, HTN, Smoking, COPD, CAD, Cancer, CVA, ARF, Chemo, Hep., AIDS, mental health diagnosis, sleep apnea, mo rbid obesity)? @ -[None] Was patient admitted / discharged? Hospital course, mention meds given and route, prescriptions, significant lab abnormalities, going to OR and other pertinent info. @ -This is an 84-year-old female with history of dementia presenting for mechanical fall with head injury. Patient is also endorsing right hip and right knee pain. Neurovascularly intact. CT brain and C-spine reveals no acute process. X-ray right knee reveals no acute fracture. X-ray right hip pending at time of signout. (Stacey Loo) Was patient admitted / discharged? Hospital course, mention meds given and route, prescriptions, significant lab abnormalities, going to OR and other pertinent info. @ -Patient signed out to me by Stacey Loo PA-C pending UA and hip x-ray. In brief this is an 84-year-old female presenting to the ER for evaluation of a fall. Family also report recent foul-smelling urine. They states patient is currently at baseline for mentation. CT brain C-spine negative for acute process. Hip and knee x-rays negative. Urinalysis concerning of infection with large leukocyte esterases, greater than 182 WBCs and many bacteria. Urine sent for culture. Patient will be started on Keflex and given IM Rocephin prior to discharge. Upon reevaluation, patient resting comfortably in exam room no signs of acute distress. As patient is afebrile, at baseline for mentation, no flank pain with stable vital signs she is stable for discharge and outpatient follow- up. Strict return parameters discussed. Patient discharged in stable condition with follow-up to PCP. Patient verbally expressed understanding and agreement with care plan. Case discussed with ED attending, Dr. Fontana. Undiagnosed new problem with uncertain prognosis? @ -No Drug Therapy requiring intensive monitoring for toxicity (Heparin, Nitro, Insulin, Cardizem)? @ -No Were any procedures done? @ -No Diagnosis/symptom? @ -UTI/fall Acute, or Chronic, or Acute on Chronic? @ -Acute Uncomplicated (without systemic symptoms) or Complicated (systemic symptoms)? @ -Uncomplicated Side effects of treatment? @ -No Exacerbation, Progression, or Severe Exacerbation? @ -No Poses a threat to life or bodily function? How? (Chest pain, [place], [place], pneumonia, PE, COPD, DKA, ARF, appy, cholecystitis, CVA, Diverticulitis, Homicidal, Suicidal, threat to staff... and all critical care pts) @ -Low at this time (Carisa Cantu) - Lab Data Lab Results 10/25/24 Range/Units 14:50 Urine Color Light Red Urine Appearance Turbid H (Clear) Urine pH 8.0 (5.0-8.0) Ur Specific [place] 1.020 (1.001-1.035) Urine Protein 2+ H (Negative) Urine Glucose (UA) Negative (Negative) Urine Ketones Negative (Negative) Urine Blood Small H (Negative) Urine Nitrite Negative (Negative) Urine Bilirubin Negative (Negative) Urine Urobilinogen 8.0 (<2.0) mg/dL Ur Leukocyte Esterase Large H (Negative) Urine RBC 11 H (0-5) /hpf Urine WBC >182 H (0-5) /hpf Ur Squamous Epith Cells 2 (0-4) /hpf Urine Bacteria Many H (None) /hpf Urine Mucus Rare H (None) /hpf Disposition <Stacey Loo - Last Filed: 10/25/24 15:21> Is patient prescribed a controlled substance at d/c from ED?: No Time of Disposition: 16:25 <Carisa Cantu - Last Filed: 10/25/24 22:21> Clinical Impression: UTI (urinary tract infection), Fall Disposition: HOME SELF-CARE Condition: Stable Additional Instructions: Complete full course of Keflex and take as prescribed. Follow-up with PCP. Return to the ER for any new or worsening concerns including but not limited to fevers, change in mentation or lethargy. Prescriptions: Cephalexin [Keflex] 500 mg PO Q6HR #40 cap Referrals: Nonstaff,Physician [REFERRING] - 1-2 days
--- NOTE | 2024-10-25 16:06 | XR ---
EXAMINATION TYPE: XR Hip Complete RT DATE OF EXAM: Previous radiograph 04/10/2015. COMPARISON: Previous radiograph dated 10/25/2024. CLINICAL INDICATION: Female, 84 years old with history of right hip injury; [facility] TECHNIQUE: XR Hip Complete RT; Frontal and lateral views FINDINGS: No acute fracture or dislocation. Previous ORIF of the proximal right femur with intramedul chivo ana and gamma nail fixation. 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 Moderate to severe degenerative arthritis of the right hip. IMPRESSION: No acute fracture or dislocation. No periprosthetic lucency. [facility], , 10/25/2024 4:04 PM
[2024-10-25] MEDS: cefTRIAXone 1,000 MG VIAL (IM USE) IM STA (16:32)
[2024-10-25 16:53] VITALS: BP 156/70; PULSE 76; RESP 18; TEMP 98
== END 2024-10-25 16:53 | disposition home or self-care (01) ==
LOC: EC 13:37
DX: N39.0 Urinary tract infection, site not specified (principal); W01.0XXA Fall on same level from slipping, tripping and stumbling without subsequent striking against object, initial encounter
CPT/HCPCS: 81001; 87086; 73502; 73562; 72125; 70450; 99285; 96372; J0696

== ENCOUNTER 2025-02-17 11:42 | Emergency (ER) | payer MEDICARE ==
[2025-02-17] MEDS: SODIUM CHLORIDE 0.9% 500 ML 500 ML IV ONE (12:05)
[2025-02-17 12:12] LABS: Basophils # (A) 0.06 10*3/uL (0.00-0.10); Basophils % (A) 0.7 %; Eosinophils # (A) 0.11 10*3/uL (0.04-0.35); Eosinophils % (A) 1.3 %; HCT 32.6 % (37.2-46.3); HGB 10.9 g/dL (12.0-15.0); Lymphocytes # (A) 1.66 10*3/uL (0.90-5.00); Lymphocytes % (A) 19.7 %; MCH 29.6 pg (27.0-32.0); MCHC 33.4 g/dL (32.0-37.0); MCV 88.6 fL (80.0-97.0); Mean Platelet Volume 9.5 fL (9.5-12.2); Monocytes % (A) 7.1 %; Neutrophils # (A) 5.97 10*3/uL (1.80-7.70); Neutrophils % (A) 70.8 %; Platelet Count 375 10*3/uL (140-440); RBC 3.68 10*6/uL (4.10-5.20); RDW 13.2 % (11.5-14.5); WBC 8.43 10*3/uL (4.50-10.00)
--- NOTE | 2025-02-17 12:20 | ED ---
General Adult HPI - General Chief complaint: Fall Stated complaint: Fall Time Seen by Provider: 02/17/25 11:43 Source: patient, EMS, RN notes reviewed, old records reviewed Mode of arrival: EMS - History of Present Illness Initial comments: Patient is an 84-year-old female with past medical history remarkable for dementia, hypertension, hyperlipidemia, CAD presents emergency department complaining of fall. She is not on blood thinners. Patient has confused to year but is a relatively okay historian. States she lost her balance and fell. Denies fainting or losing consciousness. States she did hit the back of her head when she fell as well as her right hip. She currently is only complaining of pain in her right hip. Denies any back pain, chest pain, abdominal pain. Has no other acute complaints at this time. Presents for further evaluation. - Related Data Home Medications Medication Instructions Recorded Confirmed Simvastatin [Zocor] 40 mg PO HS 10/05/22 01/31/24 Aspirin EC [Ecotrin Low Dose] 81 mg PO DAILY 01/31/24 01/31/24 Ferrous Sulfate [Feosol] 325 mg PO W/BRKFST 01/31/24 01/31/24 Levothyroxine Sodium [Synthroid] 25 mcg PO DAILY 01/31/24 01/31/24 Previous Rx's Medication Instructions Recorded Famotidine [Pepcid] 20 mg PO DAILY #30 tablet 07/23/23 Metoprolol Succinate (ER) [Toprol 25 mg PO BID #60 tab 07/23/23 XL] Valsartan [Diovan] 80 mg PO BID #60 tab 07/23/23 Cephalexin [Keflex] 500 mg PO Q12HR 7 Days #14 cap 01/31/24 Cephalexin [Keflex] 500 mg PO Q6HR #40 cap 10/25/24 Sulfamethox-Tmp 800-160Mg [Bactrim 1 tab PO Q12HR 7 Days #14 tab 02/17/25 DS 800-160 mg] Allergies Allergy/AdvReac Type Severity Reaction Status Date / Time No Known Allergies Allergy Verified 02/17/25 11:53 Review of Systems ROS Statement: Those systems with pertinent positive or pertinent negative responses have been documented in the HPI. Review of Systems: CONST: Denies fever EYES: Denies blurry vision ENT: Denies nasal congestion C/V: Denies Chest pain RESP: Denies shortness of breath GI: Denies abdominal pain : Denies dysuria SKIN: Denies rash. MSK: Endorses right hip pain NEURO: Denies headache ROS Other: All systems not noted in ROS Statement are negative. Past Medical History Past Medical History: Coronary Artery Disease (CAD), Dementia, Hyperlipidemia, Hypertension, Osteoarthritis (OA) Additional Past Medical History / Comment(s): hx falls, states fx right hip with surgery x2 and needs a 3rd surgery., uses walker., back & shoulder pain., see cardiology h & P, hallucinations(shadows of a cat) History of Any Multi-Drug Resistant Organisms: None Reported Past Surgical History: Joint Replacement, Orthopedic Surgery, Tubal Ligation Additional Past Surgical History / Comment(s): HX FALL WITH LEFT HIP FX SURGERY, HX FALL WITH RIGHT HIP SURGERY X2. Past Anesthesia/Blood Transfusion Reactions: No Reported Reaction Past Psychological History: No Psychological Hx Reported Smoking Status: Never smoker Past Alcohol Use History: None Reported Past Drug Use History: None Reported - Past Family History Mother Family Medical History: No Reported History Father Family Medical History: Asthma Additional Family Medical History / Comment(s): blood disorder- had too much blood . Sister(s) Family Medical History: Diabetes Mellitus Brother(s) Family Medical History: Cancer, Hypertension Son(s) Family Medical History: No Reported History Additional Family Medical History / Comment(s): pacemaker Daughter(s) Family Medical History: Coronary Artery Disease (CAD) Additional Family Medical History / Comment(s): 2 Daughters -Cardiac stents. General Exam - General Exam Comments Initial Comments: General: Appears in mild distress secondary to right hip pain. HEAD: Normal with no signs of head trauma. Negative Wolfe sign. Negative raccoon eyes. Patient does have no significant tenderness to palpation of the scalp. No obvious contusions or injuries. EYES: PERRLA, EOMI, conjunctiva normal, no discharge. Pupils are 2 mm and equal bilaterally. ENT: Hearing grossly intact, normal oropharynx. RESPIRATORY: Clear breath sounds bilaterally. No wheezes, rales, or rhonchi. C/V: Regular rate and rhythm. S1 and S2 auscultated, no edema, peripheral pulses 2+ and intact throughout ABD: Abd is soft, nontender, nondistended EXT: Decreased range of motion of the right hip secondary to pain in the right lateral hip. No obvious significant deformity. SKIN: No rashes or lesions observed on exposed skin. NEURO: Alert and oriented x 4. Course Vital Signs 02/17/25 02/17/25 02/17/25 11:45 12:07 14:00 Temperature 98.3 F Pulse Rate 94 82 90 Respiratory 20 20 18 Rate Blood Pressure 186/101 174/93 170/83 O2 Sat by Pulse 94 L 93 L 93 L Oximetry 02/17/25 15:16 Temperature Pulse Rate 90 Respiratory 16 Rate Blood Pressure 160/83 O2 Sat by Pulse 95 Oximetry Medical Decision Making - Medical Decision Making Was pt. sent in by a medical professional or institution (, PA, [employer], urgent care, hospital, or shelter...) When possible be specific @ -No Did you speak to anyone other than the patient for history (EMS, parent, family, police, friend...)? What history was obtained from this source @ -No Did you review nursing and triage notes (agree or disagree)? Why? @ -I reviewed and agree with nursing and triage notes Were old charts reviewed (outside hosp., previous admission, EMS record, old EKG, old radiological studies, urgent care reports/EKG's, shelter records)? Report findings @ -Reviewed EKG from May 2024 with no significant acute change when compared with today's EKG. Differential Diagnosis (chest pain, altered mental status, abdominal pain women, abdominal pain men, vaginal bleeding, weakness, fever, dyspnea, syncope, headache, dizziness, GI bleed, back pain, seizure, CVA, palpatations, mental health, musculoskeletal)? @ -Differential Musculoskeletal Muscular strain, contusion, ligament sprain, fracture, arthritis, septic arthritis, bursitis, cellulitis, muscle spasm, nerve compression, DVT, arterial occlusion, herpes zoster, electrolyte abnormality, tumor.... This is not meant to be in all inclusive list EKG interpreted by me (3pts min.). @ -As above X-rays interpreted by me (1pt min.). @ -Chest x-ray shows no obvious acute cardiopulmonary process. Hip and pelvis x-ray shows chronic findings on the right hip with what seems to be screw migration seen on prior imaging. Also chronic degeneration of the right hip. CT interpreted by me (1pt min.). @ -CT brain and C-spine negative for any obvious acute traumatic injury. CT right hip redemonstrates the chronic screw migration which appears stable per radiology. No obvious acute fracture or injury. Chronic degenerative changes of the right hip noted from prior imaging. U/S interpreted by me (1pt. min.). @ -None done What testing was considered but not performed or refused? (CT, X-rays, U/S, labs)? Why? @ -None What meds were considered but not given or refused? Why? @ -None Did you discuss the management of the patient with other professionals (professionals i.e. DrSong, PA, [employer], lab, RT, psych nurse, social research assistant, solar sales ambassador, teacher, senior loan officer, case supervisor)? Give summary @ -No Was smoking cessation discussed for >3mins.? @ -No Was critical care preformed (if so, how long)? @ -No Were there social determinants of health that impacted care today? How? (Homelessness, low income, unemployed, alcoholism, drug addiction, transportation, low edu. Level, literacy, decrease access to med. care, custodial, rehab)? @ -No Was there de-escalation of care discussed even if they declined (Discuss DNR or withdrawal of care, Hospice)? DNR status @ -No What co-morbidities impacted this encounter? (DM, HTN, Smoking, COPD, CAD, Cancer, CVA, ARF, Chemo, Hep., AIDS, mental health diagnosis, sleep apnea, morbid obesity)? @ -None Was patient admitted / discharged? Hospital course, mention meds given and route, prescriptions, significant lab abnormalities, going to OR and other pertinent info. @ -Patient presents for a fall. Is not on blood thinners. Complaining of right hip pain. No LOC. Does not meet criteria for trauma activation. Does not meet criteria for code coag. We will obtain CT brain, C-spine as well as general labs, urinalysis. Patient was in agreement this plan. She declines any analgesia medications. She will be given IV fluids. X-rays of the chest and right hip and pelvis will be obtained. She was in agreement this plan. EKG shows no signs of acute ischemia.x-ray shows screw migration of the right hip but no obvious acute injury. CT brain and C-spine negative for any obvious acute traumatic injury. CT right hip redemonstrates the chronic screw migration which appears stable per radiology. No obvious acute fracture or injury. Chronic degenerative changes of the right hip noted from prior imaging. On reevaluation, patient is able to stand and move at her baseline. She will be discharged home at this time. Labs did return remarkable for a UTI. Patient was placed on an antibiotic. Urine culture obtained and sent. Based on prior microbiology, Bactrim should be sufficient for the patient. Patient given a dose of IV Rocephin prior to discharge. Cervical collar cleared and removed. Patient was agreed with discharge back to her home. Patient discharged home with her prescription for Bactrim. Provided her with outpatient follow-up info for orthopedics as needed if hip pain continues. I will provide the patient with a prescription for Bactrim. I instructed the patient to follow up with their PCP in the next 1-3 days.. I explained that the patient should return to the emergency department if they experience any worsening symptoms. Strict return precautions were discussed with the patient. The patient expressed understanding of these instructions. I answered all questions that the patient had. The patient was discharged home in good condition with their prescriptions and follow up information. Undiagnosed new problem with uncertain prognosis? @ -No Drug Therapy requiring intensive monitoring for toxicity (Heparin, Nitro, I nsulin, Cardizem)? @ -No Were any procedures done? @ -No Diagnosis/symptom? @ - fall, UTI Acute, or Chronic, or Acute on Chronic? @ -Acute Uncomplicated (without systemic symptoms) or Complicated (systemic symptoms)? @ -Uncomplicated Side effects of treatment? @ -None Exacerbation, Progression, or Severe Exacerbation] @ -No Poses a threat to life or bodily function? @ -Unlikely at this time Diagnosis/symptom? @ -Degenerative changes of the right hip Acute, or Chronic, or Acute on Chronic? @ -Acute on chronic Uncomplicated (without systemic symptoms) or Complicated (systemic symptoms)? @ -Uncomplicated Side effects of treatment? @ -None Exacerbation, Progression, or Severe Exacerbation] @ -No Poses a threat to life or bodily function? @ -No - Lab Data Result diagrams: 02/17/25 11:57 02/17/25 11:57 Lab Results 02/17/25 02/17/25 02/17/25 Range/Units 11:57 11:57 11:57 WBC 8.43 (4.50-10.00) 10*3/uL RBC 3.68 L (4.10-5.20) 10*6/uL Hgb 10.9 L (12.0-15.0) g/dL Hct 32.6 L (37.2-46.3) % MCV 88.6 (80.0-97.0) fL MCH 29.6 (27.0-32.0) pg MCHC 33.4 (32.0-37.0) g/dL Plt Count 375 (140-440) 10*3/uL MPV 9.5 (9.5-12.2) fL Immature Gran % (Auto) 0.4 % Neutrophils % 70.8 % Lymphocytes % 19.7 % Monocytes % 7.1 % Eosinophils % 1.3 % Basophils % 0.7 % Immature Gran # 0.03 (0.00-0.04) 10*3/uL Neutrophils # 5.97 (1.80-7.70) 10*3/uL Lymphocytes # 1.66 (0.90-5.00) 10*3/uL Monocytes # 0.60 (0.20-1.00) 10*3/uL Eosinophils # 0.11 (0.04-0.35) 10*3/uL Basophils # 0.06 (0.00-0.10) 10*3/uL PT 11.3 (10.0-12.5) sec INR 1.0 (<1.2) APTT 26.1 (22.0-30.0) sec Sodium (137-145) mmol/L Potassium (3.5-5.1) mmol/L Chloride (98-107) mmol/L Carbon Dioxide (22-30) mmol/L Anion Gap mmol/L BUN (7-17) mg/dL Creatinine (0.52-1.04) mg/dL Est GFR (CKD-EPI)AfAm (>60 ml/min/1.73 sqM) Est GFR (CKD-EPI)NonAf (>60 ml/min/1.73 sqM) Glucose (74-99) mg/dL Calcium (8.4-10.2) mg/dL Magnesium (1.6-2.3) mg/dL Total Bilirubin (0.2-1.3) mg/dL AST (14-36) U/L ALT (4-34) U/L Alkaline Phosphatase (38-126) U/L Total Protein (6.3-8.2) g/dL Albumin (3.5-5.0) g/dL Urine Color Light Green Urine Appearance Turbid H (Clear) Urine pH 6.5 (5.0-8.0) Ur Specific Jupiter 1.018 (1.001-1.035) Urine Protein 2+ H (Negative) Urine Glucose (UA) Negative (Negative) Urine Ketones Negative (Negative) Urine Blood Small H (Negative) Urine Nitrite Negative (Negative) Urine Bilirubin Negative (Negative) Urine Urobilinogen 3.0 (<2.0) mg/dL Ur Leukocyte Esterase Large H (Negative) Urine RBC >182 H (0-5) /hpf Urine WBC >182 H (0-5) /hpf Urine WBC Clumps Many H (None) /hpf Ur Squamous Epith Cells 14 H (0-4) /hpf Urine Bacteria Few H (None) /hpf Urine Mucus Few H (None) /hpf Influenza Type A (PCR) (Not Detectd) Influenza Type B (PCR) (Not Detectd) RSV (PCR) (Not Detectd) SARS-CoV-2 (PCR) (Not Detectd) 02/17/25 02/17/25 Range/Units 11:57 11:57 WBC (4.50-10.00) 10*3/uL RBC (4.10-5.20) 10*6/uL Hgb (12.0-15.0) g/dL Hct (37.2-46.3) % MCV (80.0-97.0) fL MCH (27.0-32.0) pg MCHC (32.0-37.0) g/dL Plt Count (140-440) 10*3/uL MPV (9.5-12.2) fL Immature Gran % (Auto) % Neutrophils % % Lymphocytes % % Monocytes % % Eosinophils % % Basophils % % Immature Gran # (0.00-0.04) 10*3/uL Neutrophils # (1.80-7.70) 10*3/uL Lymphocytes # (0.90-5.00) 10*3/uL Monocytes # (0.20-1.00) 10*3/uL Eosinophils # (0.04-0.35) 10*3/uL Basophils # (0.00-0.10) 10*3/uL PT (10.0-12.5) sec INR (<1.2) APTT (22.0-30.0) sec Sodium 131 L (137-145) mmol/L Potassium 3.9 (3.5-5.1) mmol/L Chloride 99 (98-107) mmol/L Carbon Dioxide 25 (22-30) mmol/L Anion Gap 7 mmol/L BUN 13 (7-17) mg/dL Creatinine 0.67 (0.52-1.04) mg/dL Est GFR (CKD-EPI)AfAm >90 (>60 ml/min/1.73 sqM) Est GFR (CKD-EPI)NonAf 80 (>60 ml/min/1.73 sqM) Glucose 108 H (74-99) mg/dL Calcium 8.9 (8.4-10.2) mg/dL Magnesium 1.9 (1.6-2.3) mg/dL Total Bilirubin 0.8 (0.2-1.3) mg/dL AST 21 (14-36) U/L ALT 12 (4-34) U/L Alkaline Phosphatase 103 (38-126) U/L Total Protein 5.8 L (6.3-8.2) g/dL Albumin 3.1 L (3.5-5.0) g/dL Urine Color Urine Appearance (Clear) Urine pH (5.0-8.0) Ur Specific Jupiter (1.001-1.035) Urine Protein (Negative) Urine Glucose (UA) (Negative) Urine Ketones (Negative) Urine Blood (Negative) Urine Nitrite (Negative) Urine Bilirubin (Negative) Urine Urobilinogen (<2.0) mg/dL Ur Leukocyte Esterase (Negative) Urine RBC (0-5) /hpf Urine WBC (0-5) /hpf Urine WBC Clumps (None) /hpf Ur Squamous Epith Cells (0-4) /hpf Urine Bacteria (None) /hpf Urine Mucus (None) /hpf Influenza Type A (PCR) Not Detected (Not Detectd) Influenza Type B (PCR) Not Detected (Not Detectd) RSV (PCR) Not Detected (Not Detectd) SARS-CoV-2 (PCR) Not Detected (Not Detectd) - EKG Data -: EKG Interpreted by Me EKG Comments: 12-lead Electrocardiogram Interpretation Note EKG was reviewed and interpreted by myself. 12-lead ECG performed at 1200 is interpreted by me as revealing normal sinus rhythm at a rate of 88 beats per minute. Left axis deviation. ID interval is 171 ms, QRS durations 157 ms, QTc is 463 ms. Right bundle branch block morphology present. PAC present.. There were no ST or T wave abnormalities to suggest myocardial ischemia or injury. R wave progression across the precordium was delayed. By my interpretation this EKG is non-diagnostic for acute ischemia. Compared with EKG from May 24, 2024 with no significant change. Disposition Clinical Impression: Fall, UTI (urinary tract infection), Sprain of right hip Disposition: HOME SELF-CARE Condition: Good Instructions (If sedation given, give patient instructions): Urinary Tract Infection in Men (ED), Fall Prevention for Older Adults (ED) Prescriptions: Sulfamethox-Tmp 800-160Mg [Bactrim DS 800-160 mg] 1 tab PO Q12HR 7 Days #14 tab Is patient prescribed a controlled substance at d/c from ED?: No Referrals: Marbin Braden MD [Primary Care Provider] - 1-2 days Logan Beebe DO [Doctor of Osteopathic Medicine] - 1-2 days Time of Disposition: 14:51
[2025-02-17 12:23] LABS: ALT 12 U/L (4-34); AST 21 U/L (14-36); African American GFR (CKD) >90 (>60 ml/min/1.73 sqM); Albumin 3.1 g/dL (3.5-5.0); Alkaline Phosphatase 103 U/L (38-126); Anion Gap 7 mmol/L; Blood Urea Nitrogen 13 mg/dL (7-17); Calcium 8.9 mg/dL (8.4-10.2); Carbon Dioxide 25 mmol/L (22-30); Chloride 99 mmol/L (98-107); Glucose 108 mg/dL (74-99); Magnesium 1.9 mg/dL (1.6-2.3); Non-African American GFR(CKD) 80 (>60 ml/min/1.73 sqM); Potassium 3.9 mmol/L (3.5-5.1); Sodium 131 mmol/L (137-145); Total Bilirubin 0.8 mg/dL (0.2-1.3); Total Protein 5.8 g/dL (6.3-8.2)
[2025-02-17 12:25] LABS: Partial Thromboplastin Time 26.1 sec (22.0-30.0); Prothrombin Time 11.3 sec (10.0-12.5)
--- NOTE | 2025-02-17 12:36 | CT ---
EXAMINATION TYPE: CT brain cspine wo con CT DLP: 1250.1 mGycm, Automated exposure control for dose reduction was used. DATE OF EXAM: 02/17/2025 12:25 PM COMPARISON: CT brain C-spine 10/25/2024, 05/24/2024. CLINICAL INDICATION:Female, 84 years old with history of weakness; Fall, pain TECHNIQUE: Brain: Multiple axial CT images of the brain were obtained without IV contrast. Cspine: Axial CT images from the skull base to the inferior aspect of T2 we obtained without intraven ous contrast. Coronal and sagittal reformatted images were also reviewed. FINDINGS: Brain: Extra-axial spaces: No abnormal extra-axial fluid collections. Ventricular system: Dilatation in proportion to cerebral atrophy. Cerebral parenchyma: Cerebral atrophy. No acute intraparenchymal hemorrhage or mass effect. The sanchez -white junction is well differentiated. Confluent hypoattenuating areas are seen within the periventr icular subcortical white matter. Nonspecific bilateral basal ganglia calcifications. Cerebellum: Unremarkable. Mass effect: No evidence of midline shift. Intracranial vasculature: unremarkable Soft tissues: Right lateral scalp 7 mm soft tissue nodule redemonstrated, possible pilomatricoma. Calvarium/osseous structures: No depressed skull fracture. Paranasal sinuses and mastoid air cells: Right mastoid air cells are clear. Trace left chronic mastoi d effusion. The paranasal sinuses are clear. Visualized orbits: Senile calcific scleral plaques are present. Cervical spine: Fracture: None. Osseous structures: Disc space narrowing with endplate sclerosis and anterior osteophytosis at C6-C7. Multilevel facet arthropathy. Vertebral alignment: Within normal limits. Spinal canal/Neural Foramina: No evidence of significant spinal canal narrowing. Facet joint uncovert ebral joint arthropathy scattered throughout the cervical spine with varying degrees of neural forami nal stenosis. Neck soft tissues: Prevertebral soft tissues are within normal limits. Left anterior neck near the hy oid superficial 8mm nodule probably representing a sebaceous cyst. Other: The airway is patent. Intralobular septal thickening within the bilateral visualized upper lashell gs. Moderate left carotid bulb calcifications. Mild right carotid bulb calcifications. IMPRESSION: 1. No acute intracranial process. 2. Nonspecific white matter changes, likely secondary to chronic small vessel ischemic disease. 3. No evidence of cervical spine fracture. 4. Mild multilevel degenerative disc disease. 5. Interlobular septal thickening of the visualized upper lungs. Correlate for CHF exacerbation/fluid overload. [facility], , 02/17/2025 12:33 PM
[2025-02-17 12:48] LABS: Influenza A Not Detected (Not Detectd); Influenza B Not Detected (Not Detectd); RSV Not Detected (Not Detectd)
--- NOTE | 2025-02-17 13:51 | XR ---
EXAMINATION TYPE: XR chest 2V DATE OF EXAM: 02/17/2025 1:34 PM COMPARISON: 01/31/2024 CLINICAL INDICATION: Female, 84 years old with history of Weakness, , TECHNIQUE: AP and lateral views FINDINGS: Heart mildly enlarged. Tortuous/ectatic thoracic aorta. Interstitial density. Small to moderate left and small right pleural effusions with adjacent opacity. Hyperinflation. Osteopenia. Degenerative yesi nge of both shoulders. IMPRESSION: 1. COPD with cardiomegaly and diffuse interstitial changes. Correlate for CHF with early interstitial pulmonary edema. 2. Small to moderate left and small right pleural effusions with adjacent atelectasis and/or consolid ation. [facility], , 02/17/2025 1:49 PM
--- NOTE | 2025-02-17 13:57 | XR ---
EXAMINATION TYPE: XR Hip 2 views RT and AP Pelvis DATE OF EXAM: 02/17/2025 1:34 PM COMPARISON: 10/25/2024 CLINICAL INDICATION: Female, 84 years old with history of pain; PHH, pain FINDINGS: Redemonstrated antegrade intermedullary nail with screw fixation across a healed intertrochanteric fr acture deformity. No periprosthetic fracture is seen. There is chronic erosion of the hip screw into the weightbearing aspect of the femoral head which is flattened and eroded in appearance. Suspect мария e bone graft material here. 3 mm of lucency along the inferior aspect of the screw may indicate some further loosening. The tip of the screw projects just into the weightbearing aspect of the joint spac e. Greater degree of sclerosis within the femoral head compared to prior exam. Diffuse osteopenia. Mild degenerative spurring at the left hip with partially visualized antegrade intramedullary nail an d hip screw fixation on the left as well. IMPRESSION: 1. Previous internal fixation for intertrochanteric fracture proximal right femur. No new periprosthe tic fracture is clearly identified. 2. However, internal fixation is complicated by erosion of the screw through the weightbearing aspect of the femoral head. There seems to be some bone graft material here. Screw migration may have sligh tly progressed from prior with the screw tip now projecting just into the weightbearing joint space. 3 mm of lucency around the screw appears to be new as well. 3. Greater degree of sclerosis within the femoral head could reflect progressive degenerative subchon dral sclerosis versus AVN. [facility], , 02/17/2025 1:54 PM
[2025-02-17 14:04] LABS: Appearance,Urine Turbid (Clear); Bacteria,Urine Few /hpf; Bilirubin,Urine Negative (Negative); Blood,Urine Small (Negative); Glucose,Urine (UA) Negative (Negative); Ketones,Urine Negative (Negative); Leukocyte Esterase,Urine Large (Negative); Mucus,Urine Few /hpf; Nitrite,Urine Negative (Negative); PH, Urine 6.5 (5.0-8.0); Protein,Urine 2+ (Negative); RBC,Urine >182 /hpf (0-5); Squamous Epithelial Cell,Urine 14 /hpf (0-4); WBC,Urine >182 /hpf (0-5)
[2025-02-17 14:21] LABS: Specific Gravity,Urine 1.018 (1.001-1.035)
[2025-02-17 14:22] LABS: Color,Urine Light Green
--- NOTE | 2025-02-17 14:43 | CT ---
EXAMINATION TYPE: CT hip RT wo con DATE OF EXAM: 02/17/2025 COMPARISON: CT pelvis dated 01/23/2024 CLINICAL INDICATION: Female, 84 years old with history of fall, pain; PHH, fall CT DLP: 544.8 mGycm Automated exposure control for dose reduction was used. FINDINGS: There are postsurgical changes for prior right hip fracture repair with an intramedullary ana in the proximal femur and a transfemoral neck screw. There is fragmentation of the distal tip of the screw w hich was seen previously and is stable. There is a small stable osteochondral fracture in the humeral head. There is marked deformity of the humeral head and marked joint space narrowing indicating lisbet re osteoarthritis. There is significant subchondral sclerosis and cyst formation in the acetabulum. T here is mild heterotopic bone formation. The visualized portions right hemipelvis is intact. IMPRESSION: 1. Stable right hip compared to the prior study. 2. Abnormality of the distal tip of the compression screw in the right femoral head with marked defor mity of the head, subchondral bone fragment and severe osteoarthritis of the right hip joint as descr ibed above. IMPRESSION: [facility], , 02/17/2025 2:40 PM
[2025-02-17] MEDS: cefTRIAXone IN SWFI 1,000 MG/10 ML SYRINGE IVP STA (15:12)
[2025-02-17] MEDS: ACETAMINOPHEN TAB 500 MG TAB PO STA (15:15)
[2025-02-17 16:24] VITALS: BP 160/88; PULSE 91; RESP 20; TEMP 96.9
== END 2025-02-17 16:25 | disposition home or self-care (01) ==
LOC: EC 11:42
DX: S73.101A Unspecified sprain of right hip, initial encounter (principal); N39.0 Urinary tract infection, site not specified; I45.10 Unspecified right bundle-branch block; M16.11 Unilateral primary osteoarthritis, right hip; Z11.52 Encounter for screening for COVID-19; W19.XXXA Unspecified fall, initial encounter
CPT/HCPCS: 36415; 93005; 80053; 83735; 85025; 85610; 85730; 81001; 87086; 87636; 73502; 71046; 72125; 70450; 73700; 99285; 96374; J0696

== ENCOUNTER 2025-02-20 14:25 | Inpatient (IN) | payer MEDICARE ==
--- NOTE | 2025-02-20 14:53 | ED ---
General Adult HPI - General Chief complaint: Shortness of Breath Stated complaint: SOB Time Seen by Provider: 02/20/25 14:29 Source: patient, EMS Mode of arrival: EMS Limitations: no limitations - History of Present Illness Initial comments: Dictation was produced using [employer] dictation software. please excuse any grammatical, word or spelling errors. Chief Complaint: 84-year-old demented female presents to the emergency department for evaluation of cough shortness of breath x 4 days History of Present Illness: 84-year-old elderly female. She presents via EMS. Patient is a poor historian. She was allegedly brought from home for cough and shortness of breath x 4 days. The ROS documented in this emergency department record has been reviewed and confirmed by me. Those systems with pertinent positive or negative responses have been documented in the HPI. All other systems are other negative and/or noncontributory. - Related Data Home Medications Medication Instructions Recorded Confirmed Simvastatin [Zocor] 40 mg PO HS 10/05/22 01/31/24 Aspirin EC [Ecotrin Low Dose] 81 mg PO DAILY 01/31/24 01/31/24 Ferrous Sulfate [Feosol] 325 mg PO W/BRKFST 01/31/24 01/31/24 Levothyroxine Sodium [Synthroid] 25 mcg PO DAILY 01/31/24 01/31/24 Previous Rx's Medication Instructions Recorded Famotidine [Pepcid] 20 mg PO DAILY #30 tablet 07/23/23 Metoprolol Succinate (ER) [Toprol 25 mg PO BID #60 tab 07/23/23 XL] Valsartan [Diovan] 80 mg PO BID #60 tab 07/23/23 Cephalexin [Keflex] 500 mg PO Q12HR 7 Days #14 cap 01/31/24 Cephalexin [Keflex] 500 mg PO Q6HR #40 cap 10/25/24 Sulfamethox-Tmp 800-160Mg [Bactrim 1 tab PO Q12HR 7 Days #14 tab 02/17/25 DS 800-160 mg] Allergies Allergy/AdvReac Type Severity Reaction Status Date / Time No Known Allergies Allergy Verified 02/17/25 11:53 Review of Systems ROS Statement: Those systems with pertinent positive or pertinent negative responses have been documented in the HPI. ROS Other: All systems not noted in ROS Statement are negative. Past Medical History Past Medical History: Coronary Artery Disease (CAD), Dementia, Hyperlipidemia, Hypertension, Osteoarthritis (OA) Additional Past Medical History / Comment(s): hx falls, states fx right hip with surgery x2 and needs a 3rd surgery., uses walker., back & shoulder pain., see cardiology h & P, hallucinations(shadows of a cat) History of Any Multi-Drug Resistant Organisms: None Reported Past Surgical History: Joint Replacement, Orthopedic Surgery, Tubal Ligation Additional Past Surgical History / Comment(s): HX FALL WITH LEFT HIP FX SURGERY, HX FALL WITH RIGHT HIP SURGERY X2. Past Anesthesia/Blood Transfusion Reactions: No Reported Reaction Past Psychological History: No Psychological Hx Reported Smoking Status: Never smoker Past Alcohol Use History: None Reported Past Drug Use History: None Reported - Past Family History Mother Family Medical History: No Reported History Father Family Medical History: Asthma Additional Family Medical History / Comment(s): blood disorder- had too much blood . Sister(s) Family Medical History: Diabetes Mellitus Brother(s) Family Medical History: Cancer, Hypertension Son(s) Family Medical History: No Reported History Additional Family Medical History / Comment(s): pacemaker Daughter(s) Family Medical History: Coronary Artery Disease (CAD) Additional Family Medical History / Comment(s): 2 Daughters -Cardiac stents. General Exam - General Exam Comments Initial Comments: PHYSICAL EXAM: General Impression: Alert and oriented x1/4, mildly dyspneic HEENT: Normocephalic atraumatic, extra-ocular movements intact, pupils equal and reactive to light bilaterally, mucous membranes moist. Cardiovascular: Heart regular rate and rhythm Chest: Able to complete full sentences, no retractions, no tachypnea Abdomen: abdomen soft, non-tender, non-distended, no organomegaly Musculoskeletal: Pulses present and equal in all extremities, no peripheral edema Motor: no focal deficits noted Neurological: CN II-XII grossly intact, no focal motor or sensory deficits noted Skin: Intact with no visualized rashes Psych: Normal affect and mood Limitations: no limitations Course Vital Signs 02/20/25 02/20/25 14:31 14:35 Temperature 98.6 F Pulse Rate 100 98 Respiratory 14 16 Rate Blood Pressure 167/89 163/85 O2 Sat by Pulse 94 L 94 L Oximetry - Reevaluation(s) Reevaluation #1: 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 Bruce states that patient is normally demented. She is has a history of dementia states that he called EMS because patient was having a severe coughing fit. States that she only drinks coffee and does not drink water. 02/20/25 14:57 Medical Decision Making - Medical Decision Making Was pt. sent in by a medical professional or institution (, PA, NECK CUTTER, urgent care, hospital, or assisted...) When possible be specific @ -No Did you speak to anyone other than the patient for history (EMS, parent, family, police, friend...)? What history was obtained from this source @ -See above. History obtained also from rodeo performer along with daughter over the phone. States that she has been short of breath had a coughing fit and has history of cardiomyopathy. Did you review nursing and triage notes (agree or disagree)? Why? @ -I reviewed and agree with nursing and triage notes Were old charts reviewed (outside hosp., previous admission, EMS record, old EKG, old radiological studies, urgent care reports/EKG's, assisted records)? Report findings @ -No old charts were reviewed Differential Diagnosis (chest pain, altered mental status, abdominal pain women, abdominal pain men, vaginal bleeding, musculoskeletal, weakness, fever, dyspnea, syncope, headache, dizziness, GI bleed, back pain, seizure, CVA, palpatations, mental health)? @ -Differential Dyspnea: Coronary syndrome, arrhythmia, tamponade, asthma, COPD, pulmonary embolism, pneumonia, pneumothorax, pulmonary effusion, anaphylaxis, diabetic ketoacidosis, flailed chest, pulmonary contusion, diaphragmatic rupture, anemia, neuromuscular, this is not meant to be an all-inclusive list. EKG interpreted by me (3pts min.). @ -My EKG interpretation: Ventricular rate 99, sinus rhythm, right bundle branch block, ME 141, QRS 149, QTc 449. No ME prolongation, no QTC prolongation, no ST or T-wave changes noted. EKG compared to February 17, 2025 showing no changes. Overall, this EKG is unremarkable X-rays interpreted by me (1pt min.). @ -Checks x-ray shows heart failure versus pulmonary infection CT interpreted by me (1pt min.). @ -None done U/S interpreted by me (1pt. min.). @ -None done What testing was considered but not performed or refused? (CT, X-rays, U/S, labs)? Why? @ -None What meds were considered but not given or refused? Why? @ -None Was smoking cessation discussed for >3mins.? @ -No Were there social determinants of health that impacted care today? How? (Homelessness, low income, unemployed, alcoholism, drug addiction, transportation, low edu. Level, literacy, decrease access to med. care, long term, rehab)? @ -No Was there de-escalation of care discussed even if they declined (Discuss DNR or withdrawal of care, Hospice)? DNR status @ -No What co-morbidities impacted this encounter? (DM, HTN, Smoking, COPD, CAD, Cancer, CVA, ARF, Chemo, Hep., AIDS, mental health diagnosis, sleep apnea, morbid obesity)? @ -Dementia, cardiac disease Was patient admitted / discharged? Hospital course, mention meds given and route, prescriptions, significant lab abnormalities, going to OR and other pertinent info. @ -84-year-old demented female presents to the ER after having coughing fit episode at home. She has no history including cardiac disease. Patient is a poor historian. Radio Engineer at the bedside states that she has been dyspneic and coughing. Vital signs stable. Patient slightly dyspneic at the bedside. X-ray shows infection versus pulmonary edema given Lasix and antibiotics. Will be admitted consultation to pulmonary and cardiology. Case discussed with hospitalist for admission Did you discuss the management of the patient with other professionals (professionals i.e. , PA, NECK CUTTER, lab, RT, psych nurse, psychiatric social worker supervisor, customer service associate, teacher, home lending officer, case management rn)? Give summary @ -No Was critical care preformed (if so, how long)? @ -No Undiagnosed new problem with uncertain prognosis? @ -No Drug Therapy requiring intensive monitoring for toxicity (Heparin, Nitro, Insulin, Cardizem)? @ -No Were any procedures done? @ -No Diagnosis/symptom? Acute, or Chronic, or Acute on Chronic? Uncomplicated (without systemic symptoms) or Complicated (systemic symptoms)? @ -Dyspnea, pneumonia versus heart failure Side effects of treatment? @ -No Exacerbation, Progression, or Severe Exacerbation? @ -No Poses a threat to life or bodily function? How? (Chest pain, [place], [place], pneumonia, PE, COPD, DKA, ARF, appy, cholecystitis, CVA, Diverticulitis, Homicidal, Suicidal, threat to staff... and all critical care pts) @ -yes - Lab Data Result diagrams: 02/20/25 15:02 02/20/25 15:02 Lab Results 02/20/25 02/20/25 02/20/25 Range/Units 15:02 15:02 15:02 WBC 12.43 H (4.50-10.00) 10*3/uL RBC 3.48 L (4.10-5.20) 10*6/uL Hgb 10.4 L (12.0-15.0) g/dL Hct 30.6 L (37.2-46.3) % MCV 87.9 (80.0-97.0) fL MCH 29.9 (27.0-32.0) pg MCHC 34.0 (32.0-37.0) g/dL Plt Count 296 (140-440) 10*3/uL MPV 9.9 (9.5-12.2) fL Immature Gran % (Auto) 0.3 % Neutrophils % 79.6 % Lymphocytes % 11.5 % Monocytes % 7.9 % Eosinophils % 0.2 % Basophils % 0.5 % Immature Gran # 0.04 (0.00-0.04) 10*3/uL Neutrophils # 9.89 H (1.80-7.70) 10*3/uL Lymphocytes # 1.43 (0.90-5.00) 10*3/uL Monocytes # 0.98 (0.20-1.00) 10*3/uL Eosinophils # 0.03 L (0.04-0.35) 10*3/uL Basophils # 0.06 (0.00-0.10) 10*3/uL Sodium 127 L (137-145) mmol/L Potassium 4.2 (3.5-5.1) mmol/L Chloride 100 (98-107) mmol/L Carbon Dioxide 22 (22-30) mmol/L Anion Gap 5 mmol/L BUN 18 H (7-17) mg/dL Creatinine 0.67 (0.52-1.04) mg/dL Est GFR (CKD-EPI)AfAm >90 (>60 ml/min/1.73 sqM) Est GFR (CKD-EPI)NonAf 80 (>60 ml/min/1.73 sqM) Glucose 105 H (74-99) mg/dL Calcium 8.6 (8.4-10.2) mg/dL Total Bilirubin 1.0 (0.2-1.3) mg/dL AST 21 (14-36) U/L ALT 10 (4-34) U/L Alkaline Phosphatase 79 (38-126) U/L Total Protein 5.8 L (6.3-8.2) g/dL Albumin 3.1 L (3.5-5.0) g/dL Influenza Type A (PCR) Not Detected (Not Detectd) Influenza Type B (PCR) Not Detected (Not Detectd) RSV (PCR) Not Detected (Not Detectd) SARS-CoV-2 (PCR) Not Detected (Not Detectd) Disposition Clinical Impression: Dyspnea Disposition: [facility] Condition: Fair Referrals: Marbin Braden MD [Primary Care Provider] - 1-2 days Decision Time: 16:19
[2025-02-20] MEDS: SODIUM CHLORIDE 0.9% 1,000 ML IV STA (15:02)
[2025-02-20 15:12] LABS: Basophils # (A) 0.06 10*3/uL (0.00-0.10); Basophils % (A) 0.5 %; Eosinophils # (A) 0.03 10*3/uL (0.04-0.35); Eosinophils % (A) 0.2 %; HCT 30.6 % (37.2-46.3); HGB 10.4 g/dL (12.0-15.0); Lymphocytes # (A) 1.43 10*3/uL (0.90-5.00); Lymphocytes % (A) 11.5 %; MCH 29.9 pg (27.0-32.0); MCV 87.9 fL (80.0-97.0); Mean Platelet Volume 9.9 fL (9.5-12.2); Monocytes # (A) 0.98 10*3/uL (0.20-1.00); Monocytes % (A) 7.9 %; Neutrophils # (A) 9.89 10*3/uL (1.80-7.70); Neutrophils % (A) 79.6 %; Platelet Count 296 10*3/uL (140-440); RBC 3.48 10*6/uL (4.10-5.20); RDW 13.2 % (11.5-14.5); WBC 12.43 10*3/uL (4.50-10.00)
[2025-02-20 15:34] LABS: ALT 10 U/L (4-34); AST 21 U/L (14-36); African American GFR (CKD) >90 (>60 ml/min/1.73 sqM); Albumin 3.1 g/dL (3.5-5.0); Alkaline Phosphatase 79 U/L (38-126); Anion Gap 5 mmol/L; Blood Urea Nitrogen 18 mg/dL (7-17); Calcium 8.6 mg/dL (8.4-10.2); Carbon Dioxide 22 mmol/L (22-30); Chloride 100 mmol/L (98-107); Glucose 105 mg/dL (74-99); Non-African American GFR(CKD) 80 (>60 ml/min/1.73 sqM); Potassium 4.2 mmol/L (3.5-5.1); Sodium 127 mmol/L (137-145); Total Protein 5.8 g/dL (6.3-8.2)
--- NOTE | 2025-02-20 15:34 | XR ---
EXAMINATION TYPE: XR chest 2V DATE OF EXAM: 02/20/2025 3:22 PM COMPARISON: 02/17/2025 CLINICAL INDICATION: Female, 84 years old with history of cough, , TECHNIQUE: Frontal and lateral views FINDINGS: End-stage [id number] degenerative change of both shoulders. Heart mildly enlarged. Tortuous/ectatic thoracic aorta. There is diffuse increased interstitial opacity. Small bilateral pleural effusions w ith patchy bibasilar opacities. Overall similar compared to 02/17/2025. Renal prominent air below the right hemidiaphragm, probably colonic interposition in the absence of any signs/symptoms symptoms of an acute abdomen. IMPRESSION: 1. Air below the right hemidiaphragm probably colonic interposition in the absence of any signs/sympt oms of an acute abdomen. Clinically correlate. 2. Ongoing CHF with interstitial pulmonary edema. 3. Ongoing small bilateral pleural effusions. Prominent adjacent atelectasis and/or consolidation at the left base. [facility], , 02/20/2025 3:31 PM
[2025-02-20 15:49] LABS: Influenza A Not Detected (Not Detectd); Influenza B Not Detected (Not Detectd); RSV Not Detected (Not Detectd)
[2025-02-20] MEDS ORDERED: PNEUMONIA PROTOCOL UTILIZED 1 EACH MISC PO PRN (16:19)
[2025-02-20] MEDS: FUROSEMIDE 10 MG/ML 4 ML VIAL IV STA (16:52)
[2025-02-20] MEDS: cefTRIAXone IN SWFI 1,000 MG/10 ML SYRINGE IVP STA (16:56)
[2025-02-20] MEDS: AZITHROMYCIN 500 MG in SODIUM CHLORIDE 0.9% 250 ML IVPB STA ×2 (17:01→17:02)
[2025-02-20] MEDS: ACETAMINOPHEN TAB 325 MG TAB PO PRN (18:06)
--- NOTE | 2025-02-20 20:08 | P.HPIM ---
History of Present Illness H&P Date: 02/20/25 Chief Complaint: Cough Patient is a 84-year-old female with a past medical history of hypertension, hyperlipidemia, osteoarthritis, coronary artery disease with prior cardiac catheterization 2021 recommends medical management and history of right hip surgery x 2 and is waiting for third surgery presents here with complaints of cough and shortness of breath since last night. Patient is also having hot and cold flashes. Denies any complaints of chest pain. No nausea vomiting abdominal pain or diarrhea. Patient is a poor historian due to underlying dementia. Chest x-ray on admission showed a below the right hemidiaphragm pulmonary: Interpretation in the absence of any signs symptoms of acute abdomen.Ongoing CHF with interstitial pulmonary edema. Ongoing small bilateral pleural effusions. Prominent adjacent atelectasis and/or consolidation at the left base. Right hip CT on 02/17/2025 stable right hip compared to prior study. Abnormality of the distal tip of the compression screw in the right femoral head with marked deformity of the head., Subchondral bone fragment and severe osteoarthritis of the right hip joint. EKG showed sinus rhythm with heart rate 99. Laboratory data showed WBC 12.43, hemoglobin 10.4 and platelets 296 neutrophils 9.89. Sodium 127 potassium 4.2 chloride 100 bicarb is 22 BUN 18 and creatinine 0.67 and blood sugar 105 proBNP 99850, total protein 5.8 and albumin 3.1 Influenza A B RSV and COVID-19 PCR not detected. Patient was given a dose of azithromycin and ceftriaxone in the ER. Also received 40 mg of IV Lasix x 1. Review of Systems Constitutional: Patient denies any fever or chills . No generalized weakness or weight loss. Abdomen: Patient denied nausea vomiting and diarrhea and abdominal pain. Cardiovascular: Patient denies any chest pain. Positive for short of breath no palpitations. Respiratory: patient complains of cough without sputum production.. Positive for shortness of breath Neurologic: Patient denied any numbness or tingling. no headache. Musculoskeletal: Patient denies any complaints of joint swelling or deformity. Skin: Negative Psychiatric: Negative Endocrine: No heat or cold intolerance. No recent weight gain. Genitourinary: No dysuria or hematuria. All other 14 point ROS negative except the above Past Medical History Past Medical History: Coronary Artery Disease (CAD), Dementia, Hyperlipidemia, Hypertension, Osteoarthritis (OA) Additional Past Medical History / Comment(s): hx falls, states fx right hip with surgery x2 and needs a 3rd surgery., uses walker., back & shoulder pain., see cardiology h & P, hallucinations(shadows of a cat) History of Any Multi-Drug Resistant Organisms: None Reported Past Surgical History: Joint Replacement, Orthopedic Surgery, Tubal Ligation Additional Past Surgical History / Comment(s): HX FALL WITH LEFT HIP FX SURGERY, HX FALL WITH RIGHT HIP SURGERY X2. Past Anesthesia/Blood Transfusion Reactions: No Reported Reaction Past Psychological History: No Psychological Hx Reported Smoking Status: Never smoker Past Alcohol Use History: None Reported Past Drug Use History: None Reported - Past Family History Mother Family Medical History: No Reported History Father Family Medical History: Asthma Additional Family Medical History / Comment(s): blood disorder- had too much blood . Sister(s) Family Medical History: Diabetes Mellitus Brother(s) Family Medical History: Cancer, Hypertension Son(s) Family Medical History: No Reported History Additional Family Medical History / Comment(s): pacemaker Daughter(s) Family Medical History: Coronary Artery Disease (CAD) Additional Family Medical History / Comment(s): 2 Daughters -Cardiac stents. Medications and Allergies Home Medications Medication Instructions Recorded Confirmed Type Simvastatin [Zocor] 40 mg PO DAILY 10/05/22 02/20/25 History Metoprolol Succinate (ER) [Toprol 25 mg PO BID #60 tab 07/23/23 02/20/25 Rx XL] Valsartan [Diovan] 80 mg PO BID #60 tab 07/23/23 02/20/25 Rx Levothyroxine Sodium [Synthroid] 25 mcg PO DAILY 01/31/24 02/20/25 History Sulfamethox-Tmp 800-160Mg [Bactrim 1 tab PO BID 02/20/25 02/20/25 History DS 800-160 mg] Vibegron [Gemtesa] 75 mg PO HS 02/20/25 02/20/25 History Allergies Allergy/AdvReac Type Severity Reaction Status Date / Time No Known Allergies Allergy Verified 02/20/25 17:33 Physical Exam Vitals: Vital Signs Temp Pulse Pulse Resp BP BP Pulse Ox 02/20/25 17:36 100 F H 105 H 14 144/84 94 L 02/20/25 16:58 105 H 18 169/93 94 L 02/20/25 15:30 101 H 16 158/93 94 L 02/20/25 14:35 98 16 163/85 94 L 02/20/25 14:31 98.6 F 100 14 167/89 94 L Intake and Output 02/20/25 02/20/25 02/20/25 06:59 14:59 22:59 Other: Weight 84.368 kg 84.368 kg PHYSICAL EXAMINATION: Patient is lying in the bed,, no acute distress, awake alert and oriented.. HEENT: Normocephalic. Neck is supple. Pupils reactive. Nostrils clear. Oral cavity is moist. Neck reveals no JVD, carotid bruits, or thyromegaly. CHEST EXAMINATION: Trachea is central. Symmetrical expansion. Bibasilar coarse breath sounds. No wheezing or nonlabored breathing.. CARDIAC: Normal S1, S2 with no gallops. No murmurs ABDOMEN: Soft. Bowel sounds normal. No organomegaly. No abdominal bruits. Extremities: Trace bilateral pedal edema. No clubbing or cyanosis Neurologically awake, alert, oriented x 2. Underlying dementia. Able to move all extremities.. No gross focal deficits noted Skin: No rash or skin lesions. Psychiatric: Coperative. Nonsuicidal Musculoskeletal: No joint swelling or deformity. Results CBC & Chem 7: 02/20/25 15:02 02/20/25 15:02 Labs: Abnormal Lab Results - Last 24 Hours (Table) 02/20/25 02/20/25 Range/Units 15:02 15:02 WBC 12.43 H (4.50-10.00) 10*3/uL RBC 3.48 L (4.10-5.20) 10*6/uL Hgb 10.4 L (12.0-15.0) g/dL Hct 30.6 L (37.2-46.3) % Neutrophils # 9.89 H (1.80-7.70) 10*3/uL Eosinophils # 0.03 L (0.04-0.35) 10*3/uL Sodium 127 L (137-145) mmol/L BUN 18 H (7-17) mg/dL Glucose 105 H (74-99) mg/dL Total Protein 5.8 L (6.3-8.2) g/dL Albumin 3.1 L (3.5-5.0) g/dL Thrombosis Risk Factor Assmnt - DVT/VTE Prophylaxis DVT/VTE Prophylaxis: Pharmacologic Prophylaxis ordered - Choose All That Apply Any of the Below Risk Factors Present?: Yes Each Factor Represents 1 point: Heart failure (<1month), Obesity (BMI >25) Other Risk Factors: Yes Each Risk Factor Represents 3 Points: Age 75 years or older Other congenital or acquired thrombophilia - If yes, enter type in comment: No Thrombosis Risk Factor Assessment Total Risk Factor Score: 5 Thrombosis Risk Factor Assessment Level: High Risk Assessment and Plan Assessment: Acute CHF. Ejection fraction not known. Coronary artery disease with history of cardiac catheterization in October 2022 showed complete RCA occlusion with collaterals. Medical management was recommended. Possible left lower lobe pneumonia Sepsis Hypertension uncontrolled Hyperemia Osteoarthritis with prior history of right hip surgery Hyponatremia Dementia Hypothyroidism Overactive bladder GI DVT prophylaxis Pepcid and heparin subcu Plan: Patient will be continued on telemonitoring. Was given IV Lasix 40 mg x 1 in the ER. Continue with ceftriaxone and azithromycin. Follow-up procalcitonin level. Patient will be started on Lasix 20 mg twice daily and monitor renal function. 2D echocardiogram was ordered. Continue with aspirin statin and metoprolol. Cardiology and pulmonary was consulted. Continue to follow closely. Prognosis guarded. Time with Patient: Greater than 30
[2025-02-20] MEDS: FUROSEMIDE 10 MG/ML 2 ML VIAL IV SCH (20:44)
[2025-02-20] MEDS: METOPROLOL SUCCINATE (ER) 25 MG TAB.ER.24H PO SCH (20:45)
[2025-02-20] MEDS: FAMOTIDINE 20 MG TAB PO SCH (20:45)
[2025-02-20] MEDS: NON FORMULARY DRUG (Vibegron [Gemtesa] 75 MG Tablet) PO SCH (20:48)
[2025-02-20] MEDS: HEPARIN SODIUM,PORCINE 5,000 UNIT/ML 1 ML VIAL SQ SCH (23:50)
[2025-02-21] MEDS: LEVOTHYROXINE 25 MCG TAB PO SCH (05:56)
[2025-02-21 06:27] LABS: Basophils # (A) 0.04 10*3/uL (0.00-0.10); Basophils % (A) 0.4 %; Eosinophils # (A) 0.06 10*3/uL (0.04-0.35); Eosinophils % (A) 0.5 %; HGB 11.2 g/dL (12.0-15.0); Lymphocytes # (A) 0.99 10*3/uL (0.90-5.00); Lymphocytes % (A) 8.7 %; MCHC 32.9 g/dL (32.0-37.0); MCV 88.1 fL (80.0-97.0); Mean Platelet Volume 10.2 fL (9.5-12.2); Monocytes # (A) 0.79 10*3/uL (0.20-1.00); Neutrophils # (A) 9.44 10*3/uL (1.80-7.70); Neutrophils % (A) 83.1 %; Platelet Count 303 10*3/uL (140-440); RBC 3.86 10*6/uL (4.10-5.20); RDW 13.1 % (11.5-14.5); WBC 11.35 10*3/uL (4.50-10.00)
[2025-02-21 06:47] LABS: African American GFR (CKD) >90 (>60 ml/min/1.73 sqM); Anion Gap 9 mmol/L; Blood Urea Nitrogen 14 mg/dL (7-17); Calcium 8.7 mg/dL (8.4-10.2); Carbon Dioxide 25 mmol/L (22-30); Chloride 97 mmol/L (98-107); Glucose 104 mg/dL (74-99); Non-African American GFR(CKD) 87 (>60 ml/min/1.73 sqM); Potassium 3.4 mmol/L (3.5-5.1); Sodium 131 mmol/L (137-145)
--- NOTE | 2025-02-21 08:48 | XR ---
Chest, 2 view. CLINICAL INDICATION: Female, 84 years old with history of pneumonia COMPARISON: 02/20/2025 TECHNIQUE: PA and lateral views the chest are obtained. FINDINGS: There has been a mild reduction in the small bilateral pleural effusions and mild pulmonary vascular congestion. The findings suggest mild improving CHF. There is no pneumothorax. There is no airspace consolidation. There are advanced osteoarthritic changes of the glenohumeral joints bilaterally, right greater than left. IMPRESSION: Findings suggest mild improving CHF. [facility], , 02/21/2025 8:46 AM
[2025-02-21] MEDS: ATORVASTATIN 20 MG TAB PO SCH (09:33)
[2025-02-21] MEDS: cefTRIAXone 2 GM in DEXTROSE 5% IN WATER 50 ML IVPB SCH (09:34)
--- NOTE | 2025-02-21 11:20 | P.CNPUL ---
History of Present Illness Consult date: 02/21/25 Requesting physician: Francis Camacho Reason for consult: dyspnea, abnormal CXR/CT Chief complaint: Shortness of breath History of present illness: This is an 84-year-old female patient with a known history of hypertension, hyperlipidemia, coronary artery disease and dementia. She is a lifelong non- smoker. She presented here to the emergency room with complaints of increasing shortness of breath cough and congestion. She herself is a poor historian. Chest x-ray shows interstitial pulmonary edema with small bilateral pleural effusions. White count 11.3. Hemoglobin 11.2. Platelets 303. Sodium 131. Potassium 3.4. Bicarb 25. BUN 14. Creatinine 0.52. Glucose 104. proBNP 24,400. Viral screen negative for influenza A/B, RSV and COVID. She is seen today in consultation on the selective care unit. She is currently sitting up in bed eating breakfast. She is awake and alert in no acute distress. She is maintaining O2 saturations in the 90s on room air. No IV fluids. She is afebrile. Hemodynamically stable. She has been initiated on Lasix 20 mg IV every 12 hours. Currently with 2 L urine output. Antibiotics in the form of ceftriaxone and azithromycin. Procalcitonin pending. Review of Systems REVIEW OF SYSTEMS: CONSTITUTIONAL: Denies any recent significant weight loss or weight gain. EYES: Denies change in vision. EARS, NOSE, MOUTH, THROAT: Denies headaches, denies sore throat. CARDIOVASCULAR: Denies chest pain, palpitations or syncopal episodes. RESPIRATORY: Positive for shortness of breath, cough, congestion no hemoptysis. GASTROINTESTINAL: Denies change in appetite, denies abdominal pain GENITOURINARY: Denies hematuria, denies infections. MUSKULOSKELETAL: Denies pain, denies swelling. INTEGUMENTARY: Denies rash, denies eczema. NEUROLOGICAL: Denies recent memory loss, no recent seizure activity. PSYCHIATRIC: Denies anxiety, denies depression. HEMATOLOGIC/LYMPHATIC: Denies anemia, denies enlarged lymph nodes. Past Medical History Past Medical History: Coronary Artery Disease (CAD), Dementia, Hyperlipidemia, Hypertension, Osteoarthritis (OA) Additional Past Medical History / Comment(s): hx falls, states fx right hip with surgery x2 and needs a 3rd surgery., uses walker., back & shoulder pain., see cardiology h & P, hallucinations(shadows of a cat) History of Any Multi-Drug Resistant Organisms: None Reported Past Surgical History: Joint Replacement, Orthopedic Surgery, Tubal Ligation Additional Past Surgical History / Comment(s): HX FALL WITH LEFT HIP FX SURGERY, HX FALL WITH RIGHT HIP SURGERY X2. Past Anesthesia/Blood Transfusion Reactions: No Reported Reaction Past Psychological History: No Psychological Hx Reported Smoking Status: Never smoker Past Alcohol Use History: None Reported Past Drug Use History: None Reported - Past Family History Mother Family Medical History: No Reported History Father Family Medical History: Asthma Additional Family Medical History / Comment(s): blood disorder- had too much blood . Sister(s) Family Medical History: Diabetes Mellitus Brother(s) Family Medical History: Cancer, Hypertension Son(s) Family Medical History: No Reported History Additional Family Medical History / Comment(s): pacemaker Daughter(s) Family Medical History: Coronary Artery Disease (CAD) Additional Family Medical History / Comment(s): 2 Daughters -Cardiac stents. Medications and Allergies Home Medications Medication Instructions Recorded Confirmed Type Simvastatin [Zocor] 40 mg PO DAILY 10/05/22 02/20/25 History Metoprolol Succinate (ER) [Toprol 25 mg PO BID #60 tab 07/23/23 02/20/25 Rx XL] Valsartan [Diovan] 80 mg PO BID #60 tab 07/23/23 02/20/25 Rx Levothyroxine Sodium [Synthroid] 25 mcg PO DAILY 01/31/24 02/20/25 History Sulfamethox-Tmp 800-160Mg [Bactrim 1 tab PO BID 02/20/25 02/20/25 History DS 800-160 mg] Vibegron [Gemtesa] 75 mg PO HS 02/20/25 02/20/25 History Allergies Allergy/AdvReac Type Severity Reaction Status Date / Time No Known Allergies Allergy Verified 02/20/25 17:33 Physical Exam Vitals: Vital Signs Temp Pulse Pulse Resp BP BP Pulse Ox 02/21/25 09:28 97.8 F 95 14 159/83 94 L 02/21/25 04:09 97.6 F 116 H 16 146/80 92 L 02/21/25 02:00 93 16 02/20/25 23:52 98.1 F 93 16 170/95 94 L 02/20/25 19:44 97.6 F 92 16 167/81 96 02/20/25 17:36 100 F H 105 H 14 144/84 94 L 02/20/25 16:58 105 H 18 169/93 94 L 02/20/25 15:30 101 H 16 158/93 94 L 02/20/25 14:35 98 16 163/85 94 L 02/20/25 14:31 98.6 F 100 14 167/89 94 L Intake and Output 02/20/25 02/21/25 02/21/25 22:59 06:59 14:59 Intake Total 0 Output Total 700 1300 Balance -700 -1300 0 Intake: Oral 0 Output: Urine 700 1300 Other: Voiding Method External Catheter External Catheter External Catheter # Bowel Movements 0 Weight 84.368 kg 84.5 kg GENERAL EXAM: Alert, 84-year-old female, poor historian, on room air, co mfortable in no apparent distress. HEAD: Normocephalic. EYES: Normal reaction of pupils, equal size. NOSE: Clear with pink turbinates. THROAT: No erythema or exudates. NECK: No masses, no JVD. CHEST: No chest wall deformity. LUNGS: Equal air entry with crackles in the bilateral bases. CVS: S1 and S2 normal with no audible murmur, regular rhythm. ABDOMEN: No hepatosplenomegaly, normal bowel sounds, no guarding or rigidity. SPINE: No scoliosis or deformity SKIN: No rashes CENTRAL NERVOUS SYSTEM: No focal deficits, tone is normal in all 4 extremities. EXTREMITIES: There is trace peripheral edema. No clubbing, no cyanosis. Peripheral pulses are intact. Results - Laboratory Findings CBC and BMP: 02/21/25 05:58 02/21/25 05:58 Abnormal lab findings: Abnormal Labs 02/20/25 02/20/25 02/21/25 15:02 15:02 05:58 WBC 12.43 H 11.35 H RBC 3.48 L 3.86 L Hgb 10.4 L 11.2 L Hct 30.6 L 34.0 L Neutrophils # 9.89 H 9.44 H Eosinophils # 0.03 L Sodium 127 L Potassium Chloride BUN 18 H Glucose 105 H Total Protein 5.8 L Albumin 3.1 L 02/21/25 05:58 WBC RBC Hgb Hct Neutrophils # Eosinophils # Sodium 131 L Potassium 3.4 L Chloride 97 L BUN Glucose 104 H Total Protein Albumin - Diagnostic Findings Chest x-ray: image reviewed Assessment and Plan Assessment: Dyspnea secondary to an acute exacerbation of systolic versus diastolic congestive heart failure. Pro BnP 24,400 Hyponatremia suspect secondary to poor oral intake Dementia Hypothyroidism Hyperlipidemia History of hypertension Plan: The patient was seen and evaluated Chest x-ray, labs and medications reviewed Echocardiogram pending Continue IV diuretics Continue antibiotics for now Check a procalcitonin Heparin for DVT prophylaxis Pepcid for GI prophylaxis We will continue to follow and make further recommendations based on her clinic al status I have personally seen and examined the patient, performed the documentation and the assessment and plan as written. Number of minutes spent on the visit: 20 Dictation was produced using [employer] dictation software. Please excuse any grammatical, word or spelling errors. Time with Patient: Greater than 30
[2025-02-21] MEDS: HYDROcodone/APAP 5-325MG 1 EACH TAB PO PRN (11:35)
--- NOTE | 2025-02-21 12:26 | P.CRDCN ---
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 She reports over the past couple days she has had "a cold in her chest "feeling more short of breath, coughing. She denies any fevers or chills. Denies any chest pain or pressure. Patient is a poor historian and pleasantly confused, oriented x 12 currently. Labs reviewed: WBC 11.35, hemoglobin 11.2, sodium 131, potassium 3.4, creatinine 0.52, BNP 24,400. She does report that her shortness of breath has improved today. REVIEW OF SYSTEMS: No fever or chills. No cough or expectoration. No diaphoresis. Patient denies headache, dizziness, blurred vision, double vision. Patient denies any stomach discomfort. No nausea, vomiting. No hematochezia. No hematemesis. Denies any black stools or blood in his stools. Denies dysuria or hematuria. No muscle weakness or numbness. No chest pain or pressure. Reports feeling short of breath. PHYSICAL EXAMINATION: This is a 84-year-old female in no apparent distress at the time of my examination. HEENT: Head is atraumatic, normocephalic. Pupils are equal, round. Sclerae anicteric. Conjunctivae are clear. Mucous membranes of the mouth are moist. Neck is supple. There is no jugular venous distention. No carotid bruit is heard. CHEST EXAMINATION: Lungs are clear to auscultation. No chest wall tenderness is noted on palpation or with deep breathing. HEART EXAMINATION: Heart regular rate and rhythm. S1, S2 heard. No murmurs, gallops or rub. ABDOMEN: Soft, nontender. Bowel sounds are heard. No organomegaly noted. EXTREMITIES: 2+ peripheral pulses with no evidence of peripheral edema and no calf tenderness noted. NEUROLOGIC EXAMINATION: Patient is awake, alert and oriented x3. 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 Continue to diuresis. Will monitor overnight. I am dictating on behalf of Dr. Franklin Valerio's history/physical and assessment/plan. Past Medical History Past Medical History: Coronary Artery Disease (CAD), Dementia, Hyperlipidemia, Hypertension, Osteoarthritis (OA) Additional Past Medical History / Comment(s): hx falls, states fx right hip with surgery x2 and needs a 3rd surgery., uses walker., back & shoulder pain., see cardiology h & P, hallucinations(shadows of a cat) History of Any Multi-Drug Resistant Organisms: None Reported Past Surgical History: Joint Replacement, Orthopedic Surgery, Tubal Ligation Additional Past Surgical History / Comment(s): HX FALL WITH LEFT HIP FX SURGERY, HX FALL WITH RIGHT HIP SURGERY X2. Past Anesthesia/Blood Transfusion Reactions: No Reported Reaction Past Psychological History: No Psychological Hx Reported Smoking Status: Never smoker Past Alcohol Use History: None Reported Past Drug Use History: None Reported - Past Family History Mother Family Medical History: No Reported History Father Family Medical History: Asthma Additional Family Medical History / Comment(s): blood disorder- had too much blood . Sister(s) Family Medical History: Diabetes Mellitus Brother(s) Family Medical History: Cancer, Hypertension Son(s) Family Medical History: No Reported History Additional Family Medical History / Comment(s): pacemaker Daughter(s) Family Medical History: Coronary Artery Disease (CAD) Additional Family Medical History / Comment(s): 2 Daughters -Cardiac stents. Medications and Allergies Home Medications Medication Instructions Recorded Confirmed Type Simvastatin [Zocor] 40 mg PO DAILY 10/05/22 02/20/25 History Metoprolol Succinate (ER) [Toprol 25 mg PO BID #60 tab 07/23/23 02/20/25 Rx XL] Valsartan [Diovan] 80 mg PO BID #60 tab 07/23/23 02/20/25 Rx Levothyroxine Sodium [Synthroid] 25 mcg PO DAILY 01/31/24 02/20/25 History Sulfamethox-Tmp 800-160Mg [Bactrim 1 tab PO BID 02/20/25 02/20/25 History DS 800-160 mg] Vibegron [Gemtesa] 75 mg PO HS 02/20/25 02/20/25 History Allergies Allergy/AdvReac Type Severity Reaction Status Date / Time No Known Allergies Allergy Verified 02/20/25 17:33 Physical Exam Vitals: Vital Signs Temp Pulse Pulse Resp BP BP Pulse Ox 02/21/25 04:09 97.6 F 116 H 16 146/80 92 L 02/21/25 02:00 93 16 02/20/25 23:52 98.1 F 93 16 170/95 94 L 02/20/25 19:44 97.6 F 92 16 167/81 96 02/20/25 17:36 100 F H 105 H 14 144/84 94 L 02/20/25 16:58 105 H 18 169/93 94 L 02/20/25 15:30 101 H 16 158/93 94 L 02/20/25 14:35 98 16 163/85 94 L 02/20/25 14:31 98.6 F 100 14 167/89 94 L Intake and Output 02/20/25 02/21/25 02/21/25 22:59 06:59 14:59 Output Total 700 1300 Balance -700 -1300 Output: Urine 700 1300 Other: Voiding Method External Catheter External Catheter Weight 84.368 kg 84.5 kg Results 02/21/25 05:58 02/21/25 05:58 Cardiac Enzymes 02/20/25 Range/Units 15:02 AST 21 (14-36) U/L CBC 02/20/25 02/21/25 Range/Units 15:02 05:58 WBC 12.43 H 11.35 H (4.50-10.00) 10*3/uL RBC 3.48 L 3.86 L (4.10-5.20) 10*6/uL Hgb 10.4 L 11.2 L (12.0-15.0) g/dL Hct 30.6 L 34.0 L (37.2-46.3) % Plt Count 296 303 (140-440) 10*3/uL Comprehensive Metabolic Panel 02/20/25 02/21/25 Range/Units 15:02 05:58 Sodium 127 L 131 L (137-145) mmol/L Potassium 4.2 3.4 L (3.5-5.1) mmol/L Chloride 100 97 L (98-107) mmol/L Carbon Dioxide 22 25 (22-30) mmol/L BUN 18 H 14 (7-17) mg/dL Creatinine 0.67 0.52 (0.52-1.04) mg/dL Glucose 105 H 104 H (74-99) mg/dL Calcium 8.6 8.7 (8.4-10.2) mg/dL AST 21 (14-36) U/L ALT 10 (4-34) U/L Alkaline Phosphatase 79 (38-126) U/L Total Protein 5.8 L (6.3-8.2) g/dL Albumin 3.1 L (3.5-5.0) g/dL Current Medications Generic Name Dose Route Start Last Admin Trade Name Freq PRN Reason Stop Dose Admin Acetaminophen 650 mg 02/20/25 17:50 02/20/25 18:06 Acetaminophen Tab 325 Mg Tab PO 650 mg Q6HR PRN Administration Fever and/ or MILD Pain (1-3) Hydrocodone Bitart/Acetaminophen 1 each 02/20/25 17:50 Hydrocodone/Apap 5-325mg 1 Each Tab PO Q6HR PRN Moderate to Severe Pain (4-10) Atorvastatin Calcium 20 mg 02/21/25 09:00 Atorvastatin 20 Mg Tab PO DAILY RENE Famotidine 20 mg 02/20/25 21:00 02/20/25 21:00 Famotidine 20 Mg Tab PO Not Given BID RENE Furosemide 20 mg 02/20/25 21:00 02/20/25 20:44 Furosemide 10 Mg/Ml 2 Ml Vial IV 20 mg Q12HR RENE Administration Heparin Sodium (Porcine) 5,000 unit 02/21/25 00:00 02/20/25 23:50 Heparin Sodium,Porcine 5,000 Unit/Ml 1 Ml Vial SQ 5,000 unit Q8HR RENE Administration Ceftriaxone Sodium 2 gm/ 50 mls @ 100 mls/hr 02/21/25 09:00 Dextrose/Water IVPB 02/24/25 09:29 Q24HR RENE Protocol Azithromycin 500 mg/ Sodium 250 mls @ 250 mls/hr 02/21/25 17:00 Chloride IVPB 02/24/25 16:59 DAILY@1700 RENE Protocol Levothyroxine Sodium 25 mcg 02/21/25 06:30 02/21/25 05:56 Levothyroxine 25 Mcg Tab PO 25 mcg DAILY@0630 RENE Administration Metoprolol Succinate 25 mg 02/20/25 21:00 02/21/25 05:56 Metoprolol Succinate (Er) 25 Mg Tab.Er.24h PO 25 mg BID RENE Administration Miscellaneous Information 1 each 02/20/25 16:19 Pneumonia Protocol Utilized 1 Each Misc PO ONCE PRN Per Protocol Non-Formulary Medication 75 mg 02/20/25 21:00 02/20/25 20:48 Vibegron [Gemtesa] PO Not Given HS RENE Intake and Output 02/20/25 02/21/25 02/21/25 22:59 06:59 14:59 Output Total 700 1300 Balance -700 -1300 Output: Urine 700 1300 Other: Voiding Method External Catheter External Catheter Weight 84.368 kg 84.5 kg 02/21/25 05:58 02/21/25 05:58
--- NOTE | 2025-02-21 12:56 | CA ---
Transthoracic Echo Report Name: Carmen Ash Age: 84 Gender: F : 1940 Exam Date: 02/21/2025 07:41 Exam Location: [facility] Ht (in): 71 Wt (lb): 186 Ordering Physician: Francis Camacho MD Attending/Referring Phys: Cartography/Mapping Technician Edyta Purvis RDCS Procedure CPT: Indications: chf Cardiac Hx: Technical Quality: Good Contrast 1: Total Dose (mL): Contrast 2: Total Dose (mL): MEASUREMENTS (Male / Female) Normal Values 2D ECHO LV Diastolic Diameter PLAX 5.3 cm 4.2 - 5.9 / 3.9 - 5.3 cm LV Systolic Diameter PLAX 4.1 cm IVS Diastolic Thickness 1.4 cm 0.6 - 1.0 / 0.6 - 0.9 cm LVPW Diastolic Thickness 1.3 cm 0.6 - 1.0 / 0.6 - 0.9 cm LV Relative Wall Thickness 0.5 LVOT Diameter 2.2 cm LV Diastolic Volume MOD BP 125.1 cm??? 67 - 155 / 56 - 104 cm??? LV Systolic Volume MOD BP 87.2 cm??? 22 - 58 / 19 - 49 cm??? LV Ejection Fraction MOD BP 30.3 % >= 55 % LV Cardiac Index MOD BP 1595.9 cm???/min???m??? LV Diastolic Volume MOD 4C 113.5 cm??? LV Systolic Volume MOD 4C 81.0 cm??? LV Ejection Fraction MOD 4C 28.7 % LV Cardiac Index MOD 4C 1371.4 cm???/min???m??? LV Diastolic Length 4C 7.6 cm LV Systolic Length 4C 7.4 cm LV Diastolic Volume MOD 2C 128.1 cm??? LV Systolic Volume MOD 2C 89.4 cm??? LV Ejection Fraction MOD 2C 30.2 % LV Cardiac Index MOD 2C 1630.6 cm???/min???m??? LV Diastolic Length 2C 8.2 cm LV Systolic Length 2C 7.9 cm LA Volume 88.1 cm??? 18 - 58 / 22 - 52 cm??? LA Volume Index 42.6 cm???/m??? 16 - 28 cm???/m??? DOPPLER AV Peak Velocity 200.8 cm/s AV Peak Gradient 16.1 mmHg AV Mean Velocity 129.2 cm/s AV Mean Gradient 7.9 mmHg AV Velocity Time Integral 31.7 cm AI Peak Velocity 415.2 cm/s AI Peak Gradient 69.0 mmHg AI Pressure Half Time 307.7 ms LVOT Peak Velocity 105.4 cm/s LVOT Peak Gradient 4.4 mmHg LVOT Velocity Time Integral 17.4 cm LVOT Stroke Volume 64.6 cm??? LVOT Stroke Volume Index 31.6 ml/m??? LVOT Cardiac Index 2718.3 cm???/min???m??? AV Area Cont Eq vti 2.0 cm??? AV Area Cont Eq pk 1.9 cm??? MV Area PHT 7.0 cm??? MR Flow Rate PISA 226.2 cm???/s Mitral E Point Velocity 71.2 cm/s Mitral A Point Velocity 92.5 cm/s Mitral E to A Ratio 0.8 MV Deceleration Time 108.5 ms TR Peak Velocity 269.9 cm/s TR Peak Gradient 29.1 mmHg Right Atrial Pressure 15.0 mmHg Pulmonary Artery Systolic Pressu 44.1 mmHg Right Ventricular Systolic Press 44.1 mmHg PV Peak Velocity 65.7 cm/s PV Peak Gradient 1.7 mmHg FINDINGS Left Ventricle Left ventricular ejection fraction is estimated at 35-40 %. Moderately increased septal wall thickness. Moderately increased posterior wall thickness. Moderately increased left ventricular diastolic volume. Severely increased left ventricular systolic volume. Moderately decreased left ventricular ejection fraction. Moderately reduced global left ventricular systolic function. Right Ventricle Normal right ventricular size. Mildly reduced right ventricular global systolic function. Mild to moderate pulmonary hypertension. Right Atrium Normal right atrial size. Left Atrium Severely increased left atrial volume. Mildly increased left atrial area. Mitral Valve Mitral valve thickened. Mitral annular calcification. No evidence for mitral valve prolapse. No mitral stenosis. Moderate to severe mitral regurgitation. Aortic Valve Trileaflet aortic valve. Diffuse thickening (sclerosis) of the aortic valve cusps without reduced excursion. No aortic stenosis. Moderate to severe aortic regurgitation. Tricuspid Valve Structurally normal tricuspid valve. No tricuspid stenosis. Trace to mild tricuspid regurgitation. Pulmonic Valve Pulmonic valve not well visualized. No pulmonic stenosis. No pulmonic regurgitation. Pericardium No pericardial effusion. Pleural effusion. Aorta Normal size aortic root and proximal ascending aorta. CONCLUSIONS Left ventricular ejection fraction 35 to 40% Moderately increased left ventricular wall thickness RVSP 44 Moderate to severe mitral regurgitation Moderate to severe aortic regurgitation No pericardial effusion Previewed by: Dr. Franklin Valerio DO (Electronically Signed) Final Date: 21 February 2025 12:56
[2025-02-21] MEDS: POTASSIUM CHLORIDE ER 20 MEQ TAB.ER PO STA (16:19)
[2025-02-21] MEDS: AZITHROMYCIN 500 MG in SODIUM CHLORIDE 0.9% 250 ML IVPB SCH (16:22)
--- NOTE | 2025-02-21 19:45 | P.PN ---
Subjective Progress Note Date: 02/21/25 Patient is a 84-year-old female with a past medical history of hypertension, hyperlipidemia, osteoarthritis, coronary artery disease with prior cardiac catheterization 2021 recommends medical management and history of right hip surgery x 2 and is waiting for third surgery presents here with complaints of cough and shortness of breath since last night. Patient is also having hot and cold flashes. Denies any complaints of chest pain. No nausea vomiting abdominal pain or diarrhea. Patient is a poor historian due to underlying dementia. Chest x-ray on admission showed a below the right hemidiaphragm pulmonary: Interpretation in the absence of any signs symptoms of acute abdomen.Ongoing CHF with interstitial pulmonary edema. Ongoing small bilateral pleural effusions. Prominent adjacent atelectasis and/or consolidation at the left base. Right hip CT on 02/17/2025 stable right hip compared to prior study. Abnormality of the distal tip of the compression screw in the right femoral head with marked deformity of the head., Subchondral bone fragment and severe osteoarthritis of the right hip joint. EKG showed sinus rhythm with heart rate 99. Laboratory data showed WBC 12.43, hemoglobin 10.4 and platelets 296 neutrophils 9.89. Sodium 127 potassium 4.2 chloride 100 bicarb is 22 BUN 18 and creatinine 0.67 and blood sugar 105 proBNP 91880, total protein 5.8 and albumin 3.1 Influenza A B RSV and COVID-19 PCR not detected. Patient was given a dose of azithromycin and ceftriaxone in the ER. Also received 40 mg of IV Lasix x 1. 02/21/2025 Patient is lying in the bed. Awake alert does have underlying dementia. Currently on room air. Continue IV diuresis with Lasix 20 mg every 12. No c omplaints of chest pain or worsening shortness of breath. Patient is also on antibiotics in the form of ceftriaxone and azithromycin. Patient has been afebrile. Laboratory data showed WBC 11.3 hemoglobin 11.2 and platelets 303 Sodium 131 potassium 3.4 chloride 97 bicarb is 25 BUN 14 and creatinine 0.52 and blood sugar 104. Cardiology and pulmonary is on board. 2D echocardiogram showed left ventricular ejection fraction 35 to 40%. Moderately increased left ventricular wall thickness. RVSP 44, moderate to severe MR and moderate to severe aortic regurgitation. No pericardial effusion. Objective - Vital Signs Vital signs: Vital Signs Temp 97.8 F 02/21/25 09:28 Pulse 80 02/21/25 11:28 Resp 14 02/21/25 11:28 BP 132/73 02/21/25 11:28 Pulse Ox 97 02/21/25 11:28 FiO2 Intake & Output 02/20/25 02/21/25 02/21/25 18:59 06:59 18:59 Intake Total 100 Output Total 1999 Balance -1999 100 Weight 84.368 kg 84.5 kg Intake: Oral 100 Output: Urine 1999 Other: Voiding Method External Catheter External Catheter # Bowel Movements 0 - Exam PHYSICAL EXAMINATION: Patient is lying in the bed,, no acute distress, awake alert and oriented.. HEENT: Normocephalic. Neck is supple. Pupils reactive. Nostrils clear. Oral cavity is moist. Neck reveals no JVD, carotid bruits, or thyromegaly. CHEST EXAMINATION: Trachea is central. Symmetrical expansion. Bibasilar coarse breath sounds. No wheezing or nonlabored breathing.. CARDIAC: Normal S1, S2 with no gallops. No murmurs ABDOMEN: Soft. Bowel sounds normal. No organomegaly. No abdominal bruits. Extremities: Trace bilateral pedal edema. No clubbing or cyanosis Neurologically awake, alert, oriented x 2. Underlying dementia. Able to move all extremities.. No gross focal deficits noted Skin: No rash or skin lesions. Psychiatric: Coperative. Nonsuicidal Musculoskeletal: No joint swelling or deformity. - Labs CBC & Chem 7: 02/21/25 05:58 02/21/25 05:58 Labs: Abnormal Lab Results - Last 24 Hours (Table) 02/20/25 02/20/25 02/21/25 Range/Units 15:02 15:02 05:58 WBC 12.43 H 11.35 H (4.50-10.00) 10*3/uL RBC 3.48 L 3.86 L (4.10-5.20) 10*6/uL Hgb 10.4 L 11.2 L (12.0-15.0) g/dL Hct 30.6 L 34.0 L (37.2-46.3) % Neutrophils # 9.89 H 9.44 H (1.80-7.70) 10*3/uL Eosinophils # 0.03 L (0.04-0.35) 10*3/uL Sodium 127 L (137-145) mmol/L Potassium (3.5-5.1) mmol/L Chloride (98-107) mmol/L BUN 18 H (7-17) mg/dL Glucose 105 H (74-99) mg/dL Total Protein 5.8 L (6.3-8.2) g/dL Albumin 3.1 L (3.5-5.0) g/dL 02/21/25 Range/Units 05:58 WBC (4.50-10.00) 10*3/uL RBC (4.10-5.20) 10*6/uL Hgb (12.0-15.0) g/dL Hct (37.2-46.3) % Neutrophils # (1.80-7.70) 10*3/uL Eosinophils # (0.04-0.35) 10*3/uL Sodium 131 L (137-145) mmol/L Potassium 3.4 L (3.5-5.1) mmol/L Chloride 97 L (98-107) mmol/L BUN (7-17) mg/dL Glucose 104 H (74-99) mg/dL Total Protein (6.3-8.2) g/dL Albumin (3.5-5.0) g/dL Assessment and Plan Assessment: Acute CHF with systolic dysfunction ejection fraction 35 to 40%. Coronary artery disease with history of cardiac catheterization in October 2022 showed complete RCA occlusion with collaterals. Medical management was recommended. Possible left lower lobe pneumonia Sepsis Hypertension uncontrolled Hyperemia Osteoarthritis with prior history of right hip surgery Hyponatremia Dementia Hypothyroidism Overactive bladder GI DVT prophylaxis Pepcid and heparin subcu Plan: Patient will be continued on telemonitoring. Was given IV Lasix 40 mg x 1 in the ER. Continue with ceftriaxone and azithromycin. Follow-up procalcitonin level. Patient will be started on Lasix 20 mg twice daily and monitor renal function. 2D echocardiogram report as above. Continue with aspirin statin and metoprolol. Cardiology and pulmonary is on board.. Continue to follow closely. Prognosis guarded. Time with Patient: Greater than 30
[2025-02-21] MEDS: guaiFENesin SYRUP 100MG/5ML 200 MG/10 ML CUP PO PRN (23:12)
[2025-02-22 07:44] LABS: Basophils # (A) 0.04 10*3/uL (0.00-0.10); Basophils % (A) 0.3 %; Eosinophils # (A) 0.04 10*3/uL (0.04-0.35); Eosinophils % (A) 0.3 %; HGB 10.4 g/dL (12.0-15.0); Lymphocytes # (A) 1.02 10*3/uL (0.90-5.00); Lymphocytes % (A) 7.6 %; MCH 29.1 pg (27.0-32.0); MCHC 32.5 g/dL (32.0-37.0); MCV 89.4 fL (80.0-97.0); Mean Platelet Volume 10.1 fL (9.5-12.2); Monocytes % (A) 6.7 %; Neutrophils # (A) 11.34 10*3/uL (1.80-7.70); Neutrophils % (A) 84.6 %; Platelet Count 327 10*3/uL (140-440); RBC 3.58 10*6/uL (4.10-5.20); RDW 13.1 % (11.5-14.5); WBC 13.41 10*3/uL (4.50-10.00)
[2025-02-22 07:59] LABS: African American GFR (CKD) >90 (>60 ml/min/1.73 sqM); Anion Gap 5 mmol/L; Blood Urea Nitrogen 21 mg/dL (7-17); Calcium 8.4 mg/dL (8.4-10.2); Carbon Dioxide 29 mmol/L (22-30); Chloride 95 mmol/L (98-107); Glucose 102 mg/dL (74-99); Non-African American GFR(CKD) 80 (>60 ml/min/1.73 sqM); Potassium 4.1 mmol/L (3.5-5.1); Sodium 129 mmol/L (137-145)
--- NOTE | 2025-02-22 10:16 | P.PN ---
Subjective Progress Note Date: 02/22/25 This is an 84-year-old female patient with a known history of hypertension, hyperlipidemia, coronary artery disease and dementia. She is a lifelong non- smoker. She presented here to the emergency room with complaints of increasing shortness of breath cough and congestion. She herself is a poor historian. Chest x-ray shows interstitial pulmonary edema with small bilateral pleural effusions. White count 11.3. Hemoglobin 11.2. Platelets 303. Sodium 131. Potassium 3.4. Bicarb 25. BUN 14. Creatinine 0.52. Glucose 104. proBNP 24,400. Viral screen negative for influenza A/B, RSV and COVID. She is seen today in consultation on the selective care unit. She is currently sitting up in bed eating breakfast. She is awake and alert in no acute distress. She is maintaining O2 saturations in the 90s on room air. No IV fluids. She is afebrile. Hemodynamically stable. She has been initiated on Lasix 20 mg IV every 12 hours. Currently with 2 L urine output. Antibiotics in the form of c eftriaxone and azithromycin. Procalcitonin pending. The patient is seen today February 22, 2025 in follow-up on the selective care unit. She is currently sitting up in bed. Awake and alert in no acute distress. She is maintaining good O2 saturations in the 90s on room air oxygen. She is afebrile. Hemodynamically stable. White count 13.4. Hemoglobin 10.4. Platelets 327. Sodium 129. Potassium 4.1. Bicarb 29. BUN 21. Creatinine 0.66. Glucose 102. She is continued on ceftriaxone and azithromycin. Continued on IV Lasix. Heparin for DVT prophylaxis. Currently in a -200 mL balance. Procalcitonin pending. Echocardiogram revealed impaired left ventricular systolic function with ejection fraction 35 to 40%. Moderate to severe mitral regurgitation. Moderate to severe aortic regurgitation. Objective - Vital Signs Vital signs: Vital Signs Temp 98.1 F 02/22/25 04:49 Pulse 86 02/22/25 04:49 Resp 16 02/22/25 04:49 BP 121/65 02/22/25 04:49 Pulse Ox 94 L 02/22/25 04:49 FiO2 Intake & Output 02/21/25 02/22/25 02/22/25 18:59 06:59 18:59 Intake Total 200 120 Output Total 200 200 Balance 0 -200 120 Weight 69.5 kg Intake: Oral 200 120 Output: Urine 200 200 Other: Voiding Method External Catheter External Catheter # Voids 1 # Bowel Movements 0 - Exam GENERAL EXAM: Alert, pleasant 84-year-old female, on room air, comfortable in no apparent distress. HEAD: Normocephalic. EYES: Normal reaction of pupils, equal size. NOSE: Clear with pink turbinates. THROAT: No erythema or exudates. NECK: No masses, no JVD. CHEST: No chest wall deformity. LUNGS: Equal air entry with few scattered rhonchi. CVS: S1 and S2 normal with an audible murmur, regular rhythm. ABDOMEN: No hepatosplenomegaly, normal bowel sounds, no guarding or rigidity. SPINE: No scoliosis or deformity SKIN: No rashes CENTRAL NERVOUS SYSTEM: No focal deficits, tone is normal in all 4 extremities. EXTREMITIES: There is no peripheral edema. No clubbing, no cyanosis. Peripheral pulses are intact. - Labs CBC & Chem 7: 02/22/25 06:56 02/22/25 06:56 Labs: Abnormal Lab Results - Last 24 Hours (Table) 02/22/25 02/22/25 Range/Units 06:56 06:56 WBC 13.41 H (4.50-10.00) 10*3/uL RBC 3.58 L (4.10-5.20) 10*6/uL Hgb 10.4 L (12.0-15.0) g/dL Hct 32.0 L (37.2-46.3) % Immature Gran # 0.07 H (0.00-0.04) 10*3/uL Neutrophils # 11.34 H (1.80-7.70) 10*3/uL Sodium 129 L (137-145) mmol/L Chloride 95 L (98-107) mmol/L BUN 21 H (7-17) mg/dL Glucose 102 H (74-99) mg/dL Assessment and Plan Assessment: Dyspnea secondary to an acute exacerbation of systolic versus diastolic congestive heart failure. Pro BnP 24,400. Left ventricular ejection fraction estimated at 35 to 40% Hyponatremia suspect secondary to poor oral intake Valvular heart disease with moderate to severe mitral regurgitation, moderate to severe aortic regurgitation Dementia Hypothyroidism Hyperlipidemia History of hypertension Plan: The patient was seen and evaluated Chest x-ray, labs and medications reviewed Echocardiogram reviewed Continue IV diuretics Continue antibiotics for now Procalcitonin still pending Heparin for DVT prophylaxis Pepcid for GI prophylaxis We will continue to follow I have personally seen and examined the patient, performed the documentation and the assessment and plan as written. Number of minutes spent on the visit: 10 Dictation was produced using [employer] dictation software. Please excuse any grammatical, word or spelling errors.
[2025-02-22] MEDS: VALSARTAN 80 MG TAB PO SCH (12:10)
--- NOTE | 2025-02-22 12:45 | P.PN ---
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 She reports over the past couple days she has had "a cold in her chest "feeling more short of breath, coughing. She denies any fevers or chills. Denies any chest pain or pressure. Patient is a poor historian and pleasantly confused, oriented x 12 currently. Labs reviewed: WBC 11.35, hemoglobin 11.2, sodium 131, potassium 3.4, creatinine 0.52, BNP 24,400. She does report that her shortness of breath has improved today. 02/22 Echocardiogram with EF 35-40%, moderately increased to VSP 44, moderatesevere mitral regurgitation, moderatesevere aortic regurgitation, no pericardial effusion. Patient remains pleasantly confused this morning with no specific complaints. PHYSICAL EXAMINATION: This is a 84-year-old female in no apparent distress at the time of my examination. HEENT: Head is atraumatic, normocephalic. Pupils are equal, round. Sclerae anicteric. Conjunctivae are clear. Mucous membranes of the mouth are moist. Neck is supple. There is no jugular venous distention. No carotid bruit is heard. CHEST EXAMINATION: Lungs are clear to auscultation. No chest wall tenderness is noted on palpation or with deep breathing. HEART EXAMINATION: Heart regular rate and rhythm. S1, S2 heard. No murmurs, gallops or rub. ABDOMEN: Soft, nontender. Bowel sounds are heard. No organomegaly noted. EXTREMITIES: 2+ peripheral pulses with no evidence of peripheral edema and no calf tenderness noted. NEUROLOGIC EXAMINATION: Patient is awake, alert and oriented x3. 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 Will resume valsartan for heart failure optimization. Continue with IV diuretics and likely transition to oral diuretics tomorrow. Will continue to monitor. I am dictating on behalf of Dr. Franklin Valerio's history/physical and assessment/plan. Objective - Vital Signs Vital signs: Vital Signs Temp 99.8 F H 02/22/25 08:10 Pulse 90 02/22/25 08:10 Resp 18 02/22/25 08:10 BP 152/77 02/22/25 08:10 Pulse Ox 95 02/22/25 08:10 FiO2 Intake & Output 02/21/25 02/22/25 02/22/25 18:59 06:59 18:59 Intake Total 200 120 Output Total 200 200 Balance 0 -200 120 Weight 69.5 kg Intake: Oral 200 120 Output: Urine 200 200 Other: Voiding Method External Catheter External Catheter External Catheter # Voids 1 # Bowel Movements 0 - Labs CBC & Chem 7: 02/22/25 06:56 02/22/25 06:56 Labs: Abnormal Lab Results - Last 24 Hours (Table) 02/22/25 02/22/25 Range/Units 06:56 06:56 WBC 13.41 H (4.50-10.00) 10*3/uL RBC 3.58 L (4.10-5.20) 10*6/uL Hgb 10.4 L (12.0-15.0) g/dL Hct 32.0 L (37.2-46.3) % Immature Gran # 0.07 H (0.00-0.04) 10*3/uL Neutrophils # 11.34 H (1.80-7.70) 10*3/uL Sodium 129 L (137-145) mmol/L Chloride 95 L (98-107) mmol/L BUN 21 H (7-17) mg/dL Glucose 102 H (74-99) mg/dL
[2025-02-23 07:14] LABS: African American GFR (CKD) >90 (>60 ml/min/1.73 sqM); Anion Gap 7 mmol/L; Blood Urea Nitrogen 24 mg/dL (7-17); Calcium 8.4 mg/dL (8.4-10.2); Carbon Dioxide 25 mmol/L (22-30); Chloride 97 mmol/L (98-107); Glucose 94 mg/dL (74-99); Non-African American GFR(CKD) 84 (>60 ml/min/1.73 sqM); Potassium 3.8 mmol/L (3.5-5.1); Sodium 129 mmol/L (137-145)
[2025-02-23 07:23] LABS: Basophils # (A) 0.04 10*3/uL (0.00-0.10); Basophils % (A) 0.3 %; Eosinophils # (A) 0.02 10*3/uL (0.04-0.35); Eosinophils % (A) 0.1 %; HCT 29.7 % (37.2-46.3); HGB 10.1 g/dL (12.0-15.0); Lymphocytes # (A) 1.02 10*3/uL (0.90-5.00); MCV 88.1 fL (80.0-97.0); Mean Platelet Volume 10.8 fL (9.5-12.2); Monocytes # (A) 1.06 10*3/uL (0.20-1.00); Monocytes % (A) 7.3 %; Neutrophils # (A) 12.34 10*3/uL (1.80-7.70); Neutrophils % (A) 84.8 %; Platelet Count 344 10*3/uL (140-440); RBC 3.37 10*6/uL (4.10-5.20); RDW 13.2 % (11.5-14.5); WBC 14.56 10*3/uL (4.50-10.00)
[2025-02-23] MEDS: FUROSEMIDE 10 MG/ML 2 ML VIAL IV SCH (09:20)
--- NOTE | 2025-02-23 14:46 | P.PN ---
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 She reports over the past couple days she has had "a cold in her chest "feeling more short of breath, coughing. She denies any fevers or chills. Denies any chest pain or pressure. Patient is a poor historian and pleasantly confused, oriented x 12 currently. Labs reviewed: WBC 11.35, hemoglobin 11.2, sodium 131, potassium 3.4, creatinine 0.52, BNP 24,400. She does report that her shortness of breath has improved today. 02/22 Echocardiogram with EF 35-40%, moderately increased to VSP 44, moderatesevere mitral regurgitation, moderatesevere aortic regurgitation, no pericardial effusion. Patient remains pleasantly confused this morning with no specific complaints. 02/23 Patient seen and examined. Patient has been maintained on IV Lasix which we will transition to oral today. Blood pressure 149/80, heart rate 82, pulse ox 93% on room air. Repeat blood work reveals sodium 129, BUN 24 creatinine 0.58. Yesterday, patient was resumed on valsartan PHYSICAL EXAMINATION: This is a 84-year-old female in no apparent distress at the time of my examination. HEENT: Head is atraumatic, normocephalic. Pupils are equal, round. Sclerae anicteric. Conjunctivae are clear. Mucous membranes of the mouth are moist. Neck is supple. There is no jugular venous distention. No carotid bruit is heard. CHEST EXAMINATION: Lungs are clear to auscultation. No chest wall tenderness is noted on palpation or with deep breathing. HEART EXAMINATION: Heart regular rate and rhythm. S1, S2 heard. No murmurs, gallops or rub. ABDOMEN: Soft, nontender. Bowel sounds are heard. No organomegaly noted. EXTREMITIES: 2+ peripheral pulses with no evidence of peripheral edema and no calf tenderness noted. NEUROLOGIC EXAMINATION: Patient is awake, alert and oriented x3. 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 Continue valsartan for heart failure optimization. Transition IV Lasix to oral 40 mg in the morning and 20 mg in the afternoon Nurse practitioner note has been reviewed, I agree with documented findings and plan of care. Patient was seen and examined. Objective - Vital Signs Vital signs: Vital Signs Temp 98.5 F 02/23/25 09:34 Pulse 90 02/23/25 09:35 Resp 16 02/23/25 09:35 BP 158/80 02/23/25 09:34 Pulse Ox 96 02/23/25 09:34 FiO2 Intake & Output 02/22/25 02/23/25 02/23/25 18:59 06:59 18:59 Intake Total 120 Output Total 350 0 Balance 120 -350 0 Weight 66 kg Intake: Oral 120 Output: Urine 350 0 Other: Voiding Method External Catheter External Catheter External Catheter - Labs CBC & Chem 7: 02/23/25 06:23 02/23/25 06:23 Labs: Abnormal Lab Results - Last 24 Hours (Table) 02/23/25 02/23/25 Range/Units 06:23 06:23 WBC 14.56 H (4.50-10.00) 10*3/uL RBC 3.37 L (4.10-5.20) 10*6/uL Hgb 10.1 L (12.0-15.0) g/dL Hct 29.7 L (37.2-46.3) % Immature Gran # 0.08 H (0.00-0.04) 10*3/uL Neutrophils # 12.34 H (1.80-7.70) 10*3/uL Monocytes # 1.06 H (0.20-1.00) 10*3/uL Eosinophils # 0.02 L (0.04-0.35) 10*3/uL Sodium 129 L (137-145) mmol/L Chloride 97 L (98-107) mmol/L BUN 24 H (7-17) mg/dL
--- NOTE | 2025-02-23 15:19 | P.PN ---
Subjective Progress Note Date: 02/23/25 This is an 84-year-old female patient with a known history of hypertension, hyperlipidemia, coronary artery disease and dementia. She is a lifelong non- smoker. She presented here to the emergency room with complaints of increasing shortness of breath cough and congestion. She herself is a poor historian. Chest x-ray shows interstitial pulmonary edema with small bilateral pleural effusions. White count 11.3. Hemoglobin 11.2. Platelets 303. Sodium 131. Potassium 3.4. Bicarb 25. BUN 14. Creatinine 0.52. Glucose 104. proBNP 24,400. Viral screen negative for influenza A/B, RSV and COVID. She is seen today in consultation on the selective care unit. She is currently sitting up in bed eating breakfast. She is awake and alert in no acute distress. She is maintaining O2 saturations in the 90s on room air. No IV fluids. She is afebrile. Hemodynamically stable. She has been initiated on Lasix 20 mg IV every 12 hours. Currently with 2 L urine output. Antibiotics in the form of ceftriaxone and azithromycin. Procalcitonin pending. The patient is seen today February 22, 2025 in follow-up on the selective care unit. She is currently sitting up in bed. Awake and alert in no acute distress. She is maintaining good O2 saturations in the 90s on room air oxygen. She is afebrile. Hemodynamically stable. White count 13.4. Hemoglobin 10.4. Platelets 327. Sodium 129. Potassium 4.1. Bicarb 29. BUN 21. Creatinine 0.66. Glucose 102. She is continued on ceftriaxone and azithromycin. Continued on IV Lasix. Heparin for DVT prophylaxis. Currently in a -200 mL balance. Procalcitonin pending. Echocardiogram revealed impaired left ventricular systolic function with ejection fraction 35 to 40%. Moderate to severe mitral regurgitation. Moderate to severe aortic regurgitation. On 02/23/2025, the patient is on room air oxygen. The patient is calm and comfortable. Ability to provide history is limited and the patient has occasional morning. Nevertheless, she does not seem to be in respiratory distress. She remains on IV Rocephin and Zithromax. Rest of the medications remain unchanged. Reviewed the chest x-ray from 02/21/2025 and the chest x-ray shows mild CHF findings. Otherwise, no other significant events overnight. She is known to have CAD hypertension hyperlipidemia. She is a lifetime non-smoker. She has chronic dementia. proBNP level at the time of admission was above 24,000. The viral screen was negative. The patient echocardiogram showed impaired LV function with an ejection fraction of 35 to 40% with moderate to severe MR and moderate to severe aortic valve regurgitation. She is also having paroxysmal atrial fibrillation. She is receiving Lasix and she was given 20 mg of IV Lasix earlier in the patient is currently on Lasix 40 mg in the morning and 20 mg in the afternoon. The fluid balance seems to be negative although this has not been accurately measured. Objective - Vital Signs Vital signs: Vital Signs Temp 98.5 F 02/23/25 09:34 Pulse 90 02/23/25 09:35 Resp 16 02/23/25 09:35 BP 158/80 02/23/25 09:34 Pulse Ox 96 02/23/25 09:34 FiO2 Intake & Output 02/22/25 02/23/25 02/23/25 18:59 06:59 18:59 Intake Total 120 Output Total 350 0 Balance 120 -350 0 Weight 66 kg Intake: Oral 120 Output: Urine 350 0 Other: Voiding Method External Catheter External Catheter External Catheter - Exam GENERAL EXAM: Alert, pleasant 84-year-old female, on room air, comfortable in no apparent distress. HEAD: Normocephalic. EYES: Normal reaction of pupils, equal size. NOSE: Clear with pink turbinates. THROAT: No erythema or exudates. NECK: No masses, no JVD. CHEST: No chest wall deformity. LUNGS: Equal air entry with few scattered rhonchi. CVS: S1 and S2 normal with an audible murmur, regular rhythm. ABDOMEN: No hepatosplenomegaly, normal bowel sounds, no guarding or rigidity. SPINE: No scoliosis or deformity SKIN: No rashes CENTRAL NERVOUS SYSTEM: No focal deficits, tone is normal in all 4 extremities. EXTREMITIES: There is no peripheral edema. No clubbing, no cyanosis. Peripheral pulses are intact. - Labs CBC & Chem 7: 02/23/25 06:23 02/23/25 06:23 Labs: Abnormal Lab Results - Last 24 Hours (Table) 02/23/25 02/23/25 Range/Units 06:23 06:23 WBC 14.56 H (4.50-10.00) 10*3/uL RBC 3.37 L (4.10-5.20) 10*6/uL Hgb 10.1 L (12.0-15.0) g/dL Hct 29.7 L (37.2-46.3) % Immature Gran # 0.08 H (0.00-0.04) 10*3/uL Neutrophils # 12.34 H (1.80-7.70) 10*3/uL Monocytes # 1.06 H (0.20-1.00) 10*3/uL Eosinophils # 0.02 L (0.04-0.35) 10*3/uL Sodium 129 L (137-145) mmol/L Chloride 97 L (98-107) mmol/L BUN 24 H (7-17) mg/dL Assessment and Plan Plan: Acute on chronic CHF with secondary shortness of breath, currently stable Acute hypoxic respiratory failure currently on room air oxygen Acute on chronic dyspnea secondary to an acute exacerbation of systolic versus diastolic congestive heart failure. Pro BnP 24,400. Left ventricular ejection fraction estimated at 35 to 40%. The patient in addition has significant valvular heart disease with moderate to severe mitral regurgitation and moderate to severe aortic regurgitation Hyponatremia suspect secondary to poor oral intake, improved, sodium level is currently at 129 Valvular heart disease with moderate to severe mitral regurgitation, moderate to severe aortic regurgitation Dementia Paroxysmal atrial fibrillation, current rhythm is sinus. Hypothyroidism Hyperlipidemia History of hypertension Plan: Patient is currently on room air oxygen Echocardiogram reviewed Continue Lasix 40 mg in the morning and 20 mg in the afternoon Continue antibiotics for now, overall clinical suspicion for pneumonia is extremely low Procalcitonin is at 0.09 Heparin for DVT prophylaxis Pepcid for GI prophylaxis We will continue to follow Time with Patient: Greater than 30
[2025-02-23] MEDS: FUROSEMIDE 20 MG TAB PO SCH (16:23)
--- NOTE | 2025-02-23 22:59 | P.PN ---
Subjective Progress Note Date: 02/22/25 Patient is a 84-year-old female with a past medical history of hypertension, hyperlipidemia, osteoarthritis, coronary artery disease with prior cardiac catheterization 2021 recommends medical management and history of right hip surgery x 2 and is waiting for third surgery presents here with complaints of cough and shortness of breath since last night. Patient is also having hot and cold flashes. Denies any complaints of chest pain. No nausea vomiting abdominal pain or diarrhea. Patient is a poor historian due to underlying dementia. Chest x-ray on admission showed a below the right hemidiaphragm pulmonary: Interpretation in the absence of any signs symptoms of acute abdomen.Ongoing CHF with interstitial pulmonary edema. Ongoing small bilateral pleural effusions. Prominent adjacent atelectasis and/or consolidation at the left base. Right hip CT on 02/17/2025 stable right hip compared to prior study. Abnormality of the distal tip of the compression screw in the right femoral head with marked deformity of the head., Subchondral bone fragment and severe osteoarthritis of the right hip joint. EKG showed sinus rhythm with heart rate 99. Laboratory data showed WBC 12.43, hemoglobin 10.4 and platelets 296 neutrophils 9.89. Sodium 127 potassium 4.2 chloride 100 bicarb is 22 BUN 18 and creatinine 0.67 and blood sugar 105 proBNP 62293, total protein 5.8 and albumin 3.1 Influenza A B RSV and COVID-19 PCR not detected. Patient was given a dose of azithromycin and ceftriaxone in the ER. Also received 40 mg of IV Lasix x 1. 02/21/2025 Patient is lying in the bed. Awake alert does have underlying dementia. Currently on room air. Continue IV diuresis with Lasix 20 mg every 12. No c omplaints of chest pain or worsening shortness of breath. Patient is also on antibiotics in the form of ceftriaxone and azithromycin. Patient has been afebrile. Laboratory data showed WBC 11.3 hemoglobin 11.2 and platelets 303 Sodium 131 potassium 3.4 chloride 97 bicarb is 25 BUN 14 and creatinine 0.52 and blood sugar 104. Cardiology and pulmonary is on board. 2D echocardiogram showed left ventricular ejection fraction 35 to 40%. Moderately increased left ventricular wall thickness. RVSP 44, moderate to severe MR and moderate to severe aortic regurgitation. No pericardial effusion. 02/22/2025 Patient is awake alert and mental status at baseline. No complaints of chest pain. Shortness of breath is improving. Patient is currently on room air. No cough or sputum production. Laboratory data showed WBC 13.4 hemoglobin 10.4 and platelets 327 sodium 129 potassium 4.1 chloride 95 bicarb is 29 BUN 21 creatinine 0.66 and blood sugar is 102. Patient is on IV Lasix 20 mg every 12. Antibiotics with ceftriaxone and azithromycin. EKG showed atrial fibrillation with heart rate 98. Objective - Vital Signs Vital signs: Vital Signs Temp 99.8 F H 02/22/25 08:10 Pulse 90 02/22/25 08:10 Resp 18 02/22/25 08:10 BP 152/77 02/22/25 08:10 Pulse Ox 95 02/22/25 08:10 FiO2 Intake & Output 02/21/25 02/22/25 02/22/25 18:59 06:59 18:59 Intake Total 200 120 Output Total 200 200 Balance 0 -200 120 Weight 69.5 kg Intake: Oral 200 120 Output: Urine 200 200 Other: Voiding Method External Catheter External Catheter External Catheter # Voids 1 # Bowel Movements 0 - Exam PHYSICAL EXAMINATION: Patient is lying in the bed,, no acute distress, awake alert and oriented.. HEENT: Normocephalic. Neck is supple. Pupils reactive. Nostrils clear. Oral cavity is moist. Neck reveals no JVD, carotid bruits, or thyromegaly. CHEST EXAMINATION: Trachea is central. Symmetrical expansion. Bibasilar coarse breath sounds. No wheezing or nonlabored breathing.. CARDIAC: Normal S1, S2 with no gallops. No murmurs ABDOMEN: Soft. Bowel sounds normal. No organomegaly. No abdominal bruits. Extremities: Trace bilateral pedal edema. No clubbing or cyanosis Neurologically awake, alert, oriented x 2. Underlying dementia. Able to move all extremities.. No gross focal deficits noted Skin: No rash or skin lesions. Psychiatric: Coperative. Nonsuicidal Musculoskeletal: No joint swelling or deformity. - Labs CBC & Chem 7: 02/23/25 06:23 02/23/25 06:23 Labs: Abnormal Lab Results - Last 24 Hours (Table) 02/22/25 02/22/25 Range/Units 06:56 06:56 WBC 13.41 H (4.50-10.00) 10*3/uL RBC 3.58 L (4.10-5.20) 10*6/uL Hgb 10.4 L (12.0-15.0) g/dL Hct 32.0 L (37.2-46.3) % Immature Gran # 0.07 H (0.00-0.04) 10*3/uL Neutrophils # 11.34 H (1.80-7.70) 10*3/uL Sodium 129 L (137-145) mmol/L Chloride 95 L (98-107) mmol/L BUN 21 H (7-17) mg/dL Glucose 102 H (74-99) mg/dL Assessment and Plan Assessment: Acute CHF with systolic dysfunction ejection fraction 35 to 40%. Coronary artery disease with history of cardiac catheterization in October 2022 showed complete RCA occlusion with collaterals. Medical management was recommended. Possible left lower lobe pneumonia Sepsis Hypertension uncontrolled Hyperemia Osteoarthritis with prior history of right hip surgery Hyponatremia Dementia Hypothyroidism Overactive bladder GI DVT prophylaxis Pepcid and heparin subcu Plan: Patient will be continued on telemonitoring. Was given IV Lasix 40 mg x 1 in the ER. Continue with ceftriaxone and azithromycin for 5 days. Follow-up procalcitonin level. Patient was started on Lasix 20 mg twice daily and monitor renal function. Lasix will be changed to 20 mg IV daily. 2D echocardiogram report as above. Continue with aspirin statin and metoprolol. Cardiology and pulmonary is on board.. Continue to follow closely. Prognosis guarded. Time with Patient: Greater than 30
--- NOTE | 2025-02-23 23:02 | P.PN ---
Subjective Progress Note Date: 02/23/25 Patient is a 84-year-old female with a past medical history of hypertension, hyperlipidemia, osteoarthritis, coronary artery disease with prior cardiac catheterization 2021 recommends medical management and history of right hip surgery x 2 and is waiting for third surgery presents here with complaints of cough and shortness of breath since last night. Patient is also having hot and cold flashes. Denies any complaints of chest pain. No nausea vomiting abdominal pain or diarrhea. Patient is a poor historian due to underlying dementia. Chest x-ray on admission showed a below the right hemidiaphragm pulmonary: Interpretation in the absence of any signs symptoms of acute abdomen.Ongoing CHF with interstitial pulmonary edema. Ongoing small bilateral pleural effusions. Prominent adjacent atelectasis and/or consolidation at the left base. Right hip CT on 02/17/2025 stable right hip compared to prior study. Abnormality of the distal tip of the compression screw in the right femoral head with marked deformity of the head., Subchondral bone fragment and severe osteoarthritis of the right hip joint. EKG showed sinus rhythm with heart rate 99. Laboratory data showed WBC 12.43, hemoglobin 10.4 and platelets 296 neutrophils 9.89. Sodium 127 potassium 4.2 chloride 100 bicarb is 22 BUN 18 and creatinine 0.67 and blood sugar 105 proBNP 67241, total protein 5.8 and albumin 3.1 Influenza A B RSV and COVID-19 PCR not detected. Patient was given a dose of azithromycin and ceftriaxone in the ER. Also received 40 mg of IV Lasix x 1. 02/21/2025 Patient is lying in the bed. Awake alert does have underlying dementia. Currently on room air. Continue IV diuresis with Lasix 20 mg every 12. No c omplaints of chest pain or worsening shortness of breath. Patient is also on antibiotics in the form of ceftriaxone and azithromycin. Patient has been afebrile. Laboratory data showed WBC 11.3 hemoglobin 11.2 and platelets 303 Sodium 131 potassium 3.4 chloride 97 bicarb is 25 BUN 14 and creatinine 0.52 and blood sugar 104. Cardiology and pulmonary is on board. 2D echocardiogram showed left ventricular ejection fraction 35 to 40%. Moderately increased left ventricular wall thickness. RVSP 44, moderate to severe MR and moderate to severe aortic regurgitation. No pericardial effusion. 02/22/2025 Patient is awake alert and mental status at baseline. No complaints of chest pain. Shortness of breath is improving. Patient is currently on room air. No cough or sputum production. Laboratory data showed WBC 13.4 hemoglobin 10.4 and platelets 327 sodium 129 potassium 4.1 chloride 95 bicarb is 29 BUN 21 creatinine 0.66 and blood sugar is 102. Patient is on IV Lasix 20 mg every 12. Antibiotics with ceftriaxone and azithromycin. EKG showed atrial fibrillation with heart rate 98. 02/23/2025 Patient lives resting in the bed. More alert and awake today. No complaints of chest pain. No worsening shortness of breath. On room air. No cough or sputum production. Patient is on antibiotic in the form of ceftriaxone azithromycin. Lasix changed to 40 mg daily and 20 mg at 4 PM. Laboratory data showed WBC slightly increased to 14.5 hemoglobin 10.1 and platelets 344 sodium 129 potassium 3.8 chloride 97 bicarb 25 BUN 24 and creatinine 0.58 and blood sugar 94. Vitamin B12 881. Objective - Vital Signs Vital signs: Vital Signs Temp 99.6 F 02/23/25 15:59 Pulse 80 02/23/25 15:59 Resp 16 02/23/25 15:59 BP 131/72 02/23/25 15:59 Pulse Ox 95 02/23/25 15:59 FiO2 Intake & Output 02/23/25 02/23/25 02/24/25 06:59 18:59 06:59 Output Total 350 550 Balance -350 -550 Weight 66 kg Output: Urine 350 550 Other: Voiding Method External Catheter External Catheter - Exam PHYSICAL EXAMINATION: Patient is lying in the bed,, no acute distress, awake alert and oriented.. HEENT: Normocephalic. Neck is supple. Pupils reactive. Nostrils clear. Oral cavity is moist. Neck reveals no JVD, carotid bruits, or thyromegaly. CHEST EXAMINATION: Trachea is central. Symmetrical expansion. Bibasilar coarse breath sounds. No wheezing or nonlabored breathing.. CARDIAC: Normal S1, S2 with no gallops. No murmurs ABDOMEN: Soft. Bowel sounds normal. No organomegaly. No abdominal bruits. Extremities: Trace bilateral pedal edema. No clubbing or cyanosis Neurologically awake, alert, oriented x 2. Underlying dementia. Able to move all extremities.. No gross focal deficits noted Skin: No rash or skin lesions. Psychiatric: Coperative. Nonsuicidal Musculoskeletal: No joint swelling or deformity. - Labs CBC & Chem 7: 02/23/25 06:23 02/23/25 06:23 Labs: Abnormal Lab Results - Last 24 Hours (Table) 02/23/25 02/23/25 Range/Units 06:23 06:23 WBC 14.56 H (4.50-10.00) 10*3/uL RBC 3.37 L (4.10-5.20) 10*6/uL Hgb 10.1 L (12.0-15.0) g/dL Hct 29.7 L (37.2-46.3) % Immature Gran # 0.08 H (0.00-0.04) 10*3/uL Neutrophils # 12.34 H (1.80-7.70) 10*3/uL Monocytes # 1.06 H (0.20-1.00) 10*3/uL Eosinophils # 0.02 L (0.04-0.35) 10*3/uL Sodium 129 L (137-145) mmol/L Chloride 97 L (98-107) mmol/L BUN 24 H (7-17) mg/dL Assessment and Plan Assessment: Acute CHF with systolic dysfunction ejection fraction 35 to 40%. Coronary artery disease with history of cardiac catheterization in October 2022 showed complete RCA occlusion with collaterals. Medical management was recommended. Possible left lower lobe pneumonia Sepsis Hypertension uncontrolled Hyperemia Osteoarthritis with prior history of right hip surgery Hyponatremia Dementia Hypothyroidism Overactive bladder GI DVT prophylaxis Pepcid and heparin subcu Plan: Patient will be continued on telemonitoring. Was given IV Lasix 40 mg x 1 in the ER. Continue with ceftriaxone and azithromycin for 5 days. Follow-up procalcitonin level. Patient was started on Lasix 20 mg twice daily and monitor renal function. Lasix changed to p.o. today. 2D echocardiogram report as above. Continue with aspirin statin and metoprolol. Cardiology and pulmonary is on board.. Continue to follow closely. PT OT consult. Prognosis guarded. Time with Patient: Greater than 30
[2025-02-23] MEDS: SENNOSIDES 8.6 MG TAB PO SCH (23:13)
[2025-02-24 08:08] LABS: Basophils # (A) 0.02 10*3/uL (0.00-0.10); Basophils % (A) 0.2 %; Eosinophils # (A) 0.03 10*3/uL (0.04-0.35); Eosinophils % (A) 0.3 %; HCT 28.7 % (37.2-46.3); HGB 9.6 g/dL (12.0-15.0); Lymphocytes # (A) 1.01 10*3/uL (0.90-5.00); Lymphocytes % (A) 8.7 %; MCH 29.9 pg (27.0-32.0); MCHC 33.4 g/dL (32.0-37.0); MCV 89.4 fL (80.0-97.0); Mean Platelet Volume 9.8 fL (9.5-12.2); Monocytes # (A) 0.73 10*3/uL (0.20-1.00); Monocytes % (A) 6.3 %; Neutrophils # (A) 9.77 10*3/uL (1.80-7.70); Neutrophils % (A) 84.2 %; Platelet Count 303 10*3/uL (140-440); RBC 3.21 10*6/uL (4.10-5.20); RDW 13.2 % (11.5-14.5)
[2025-02-24 08:27] LABS: African American GFR (CKD) >90 (>60 ml/min/1.73 sqM); Anion Gap 9 mmol/L; Blood Urea Nitrogen 24 mg/dL (7-17); Calcium 8.5 mg/dL (8.4-10.2); Carbon Dioxide 27 mmol/L (22-30); Chloride 98 mmol/L (98-107); Glucose 104 mg/dL (74-99); Non-African American GFR(CKD) 81 (>60 ml/min/1.73 sqM); Potassium 3.5 mmol/L (3.5-5.1); Sodium 134 mmol/L (137-145)
[2025-02-24] MEDS: FUROSEMIDE 40 MG TAB PO SCH (09:02)
--- NOTE | 2025-02-24 14:48 | P.PN ---
Subjective Progress Note Date: 02/24/25 History of present illness: Patient is a pleasant 84-year-old female with significant past medical history of hypertension, hyperlipidemia, dementia, osteoarthritis, CAD with prior heart catheterization in 2021 that showed [employer] RCA and 40-50% stenosis of the LAD, CHF who presents with complaints of shortness of breath. She reports over the past couple days she has had "a cold in her chest "feeling more short of breath, coughing. She denies any fevers or chills. Denies any chest pain or pressure. Patient is a poor historian and pleasantly confused, oriented x 12 currently. Labs reviewed: WBC 11.35, hemoglobin 11.2, sodium 131, potassium 3.4, creatinine 0.52, BNP 24,400. She does report that her shortness of breath has improved today. 02/22 Echocardiogram with EF 35-40%, moderately increased to VSP 44, moderatesevere mitral regurgitation, moderatesevere aortic regurgitation, no pericardial effusion. Patient remains pleasantly confused this morning with no specific complaints. 02/23 Patient seen and examined. Patient has been maintained on IV Lasix which we will transition to oral today. Blood pressure 149/80, heart rate 82, pulse ox 93% on room air. Repeat blood work reveals sodium 129, BUN 24 creatinine 0.58. Yesterday, patient was resumed on valsartan. 02/24 Patient seen and examined. Yesterday we transition IV Lasix to oral at 40 mg in the morning 20 mg in the afternoon. Blood pressure 137/77, heart rate in the 90s, pulse ox 96% on room air. Repeat blood work reveals WBC 11.6, hemoglobin 9.6, BUN 24 creatinine 0.63. PHYSICAL EXAMINATION: This is a 84-year-old female in no apparent distress at the time of my examination. HEENT: Head is atraumatic, normocephalic. Pupils are equal, round. Sclerae anicteric. Conjunctivae are clear. Mucous membranes of the mouth are moist. Neck is supple. There is no jugular venous distention. No carotid bruit is heard. CHEST EXAMINATION: Lungs are clear to auscultation. No chest wall tenderness is noted on palpation or with deep breathing. HEART EXAMINATION: Heart regular rate and rhythm. S1, S2 heard. No murmurs, gallops or rub. ABDOMEN: Soft, nontender. Bowel sounds are heard. No organomegaly noted. EXTREMITIES: 2+ peripheral pulses with no evidence of peripheral edema and no calf tenderness noted. NEUROLOGIC EXAMINATION: Patient is awake, alert and oriented x3. IMPRESSION AND PLAN: CAD, [employer] of the RCA with collaterals and LAD 40-50% on left heart cath from 2021 Hypertension Hyperlipidemia Dementia Acute on chronic heart failure systolic, EF 35-40% Dyspnea Moderatesevere mitral regurgitation Moderatesevere aortic regurgitation PLAN: Echocardiogram shows EF 35-40%, moderatesevere MR and AR. Continue valsartan for heart failure optimization. Continue Lasix oral 40 mg in the morning and 20 mg in the afternoon No further cardiac workup at this time. Patient is cleared for discharge. Cardiology will sign off this case and follow on an as-needed basis. Please reconsult for any new concerns. Patient may follow-up in the office in one to 2 weeks. Nurse practitioner note has been reviewed, I agree with documented findings and plan of care. Patient was seen and examined. Objective - Vital Signs Vital signs: Vital Signs Temp 97.9 F 02/24/25 08:29 Pulse 92 02/24/25 10:35 Resp 16 02/24/25 10:35 BP 154/82 02/24/25 10:35 Pulse Ox 96 02/24/25 08:29 FiO2 Intake & Output 02/23/25 02/24/25 02/24/25 18:59 06:59 18:59 Output Total 550 350 Balance -550 -350 Weight 66 kg Output: Urine 550 350 Straight 350 Other: Voiding Method External Catheter External Catheter External Catheter - Labs CBC & Chem 7: 02/24/25 07:49 02/24/25 07:49 Labs: Abnormal Lab Results - Last 24 Hours (Table) 02/24/25 02/24/25 Range/Units 07:49 07:49 WBC 11.60 H (4.50-10.00) 10*3/uL RBC 3.21 L (4.10-5.20) 10*6/uL Hgb 9.6 L (12.0-15.0) g/dL Hct 28.7 L (37.2-46.3) % Neutrophils # 9.77 H (1.80-7.70) 10*3/uL Eosinophils # 0.03 L (0.04-0.35) 10*3/uL Sodium 134 L (137-145) mmol/L BUN 24 H (7-17) mg/dL Glucose 104 H (74-99) mg/dL
--- NOTE | 2025-02-24 15:50 | P.PN ---
Subjective Progress Note Date: 02/24/25 This is an 84-year-old female patient with a known history of hypertension, hyperlipidemia, coronary artery disease and dementia. She is a lifelong non- smoker. She presented here to the emergency room with complaints of increasing shortness of breath cough and congestion. She herself is a poor historian. Chest x-ray shows interstitial pulmonary edema with small bilateral pleural effusions. White count 11.3. Hemoglobin 11.2. Platelets 303. Sodium 131. Potassium 3.4. Bicarb 25. BUN 14. Creatinine 0.52. Glucose 104. proBNP 24,400. Viral screen negative for influenza A/B, RSV and COVID. She is seen today in consultation on the selective care unit. She is currently sitting up in bed eating breakfast. She is awake and alert in no acute distress. She is maintaining O2 saturations in the 90s on room air. No IV fluids. She is afebrile. Hemodynamically stable. She has been initiated on Lasix 20 mg IV every 12 hours. Currently with 2 L urine output. Antibiotics in the form of ceftriaxone and azithromycin. Procalcitonin pending. The patient is seen today February 22, 2025 in follow-up on the selective care unit. She is currently sitting up in bed. Awake and alert in no acute distress. She is maintaining good O2 saturations in the 90s on room air oxygen. She is afebrile. Hemodynamically stable. White count 13.4. Hemoglobin 10.4. Platelets 327. Sodium 129. Potassium 4.1. Bicarb 29. BUN 21. Creatinine 0.66. Glucose 102. She is continued on ceftriaxone and azithromycin. Continued on IV Lasix. Heparin for DVT prophylaxis. Currently in a -200 mL balance. Procalcitonin pending. Echocardiogram revealed impaired left ventricular systolic function with ejection fraction 35 to 40%. Moderate to severe mitral regurgitation. Moderate to severe aortic regurgitation. On 02/23/2025, the patient is on room air oxygen. The patient is calm and comfortable. Ability to provide history is limited and the patient has occasional morning. Nevertheless, she does not seem to be in respiratory distress. She remains on IV Rocephin and Zithromax. Rest of the medications remain unchanged. Reviewed the chest x-ray from 02/21/2025 and the chest x-ray shows mild CHF findings. Otherwise, no other significant events overnight. She is known to have CAD hypertension hyperlipidemia. She is a lifetime non-smoker. She has chronic dementia. proBNP level at the time of admission was above 24,000. The viral screen was negative. The patient echocardiogram showed impaired LV function with an ejection fraction of 35 to 40% with moderate to severe MR and moderate to severe aortic valve regurgitation. She is also having paroxysmal atrial fibrillation. She is receiving Lasix and she was given 20 mg of IV Lasix earlier in the patient is currently on Lasix 40 mg in the morning and 20 mg in the afternoon. The fluid balance seems to be negative although this has not been accurately measured. On today's evaluation of 02/24/2025, the patient is on room air oxygen. She is calm and comfortable. Denies having any significant shortness of breath. She is currently on oral Lasix 40 mg in the morning and 20 mg in the afternoon. She is producing adequate urine output. She remains on empiric antibiotic coverage with Zithromax. The white cell count 11.6 with a hemoglobin 9.6 and a platelet count of 303. BUN 24 with a creatinine 0.6 and a sodium levels at 134. Tolerating diet. Hemodynamically stable. No other significant events overnight. Objective - Vital Signs Vital signs: Vital Signs Temp 97.9 F 02/24/25 08:29 Pulse 88 02/24/25 10:19 Resp 16 02/24/25 08:29 BP 155/79 02/24/25 10:19 Pulse Ox 96 02/24/25 08:29 FiO2 Intake & Output 02/23/25 02/24/25 02/24/25 18:59 06:59 18:59 Output Total 550 350 Balance -550 -350 Weight 66 kg Output: Urine 550 350 Straight 350 Other: Voiding Method External Catheter External Catheter External Catheter - Exam GENERAL EXAM: Alert, pleasant 84-year-old female, on room air, comfortable in no apparent distress. HEAD: Normocephalic. EYES: Normal reaction of pupils, equal size. NOSE: Clear with pink turbinates. THROAT: No erythema or exudates. NECK: No masses, no JVD. CHEST: No chest wall deformity. LUNGS: Equal air entry with few scattered rhonchi. CVS: S1 and S2 normal with an audible murmur, regular rhythm. ABDOMEN: No hepatosplenomegaly, normal bowel sounds, no guarding or rigidity. SPINE: No scoliosis or deformity SKIN: No rashes CENTRAL NERVOUS SYSTEM: No focal deficits, tone is normal in all 4 extremities. EXTREMITIES: There is no peripheral edema. No clubbing, no cyanosis. Peripheral pulses are intact. - Labs CBC & Chem 7: 02/24/25 07:49 02/24/25 07:49 Labs: Abnormal Lab Results - Last 24 Hours (Table) 02/24/25 02/24/25 Range/Units 07:49 07:49 WBC 11.60 H (4.50-10.00) 10*3/uL RBC 3.21 L (4.10-5.20) 10*6/uL Hgb 9.6 L (12.0-15.0) g/dL Hct 28.7 L (37.2-46.3) % Neutrophils # 9.77 H (1.80-7.70) 10*3/uL Eosinophils # 0.03 L (0.04-0.35) 10*3/uL Sodium 134 L (137-145) mmol/L BUN 24 H (7-17) mg/dL Glucose 104 H (74-99) mg/dL Assessment and Plan Plan: Acute on chronic CHF with secondary shortness of breath, currently stable Acute hypoxic respiratory failure currently on room air oxygen Acute on chronic dyspnea secondary to an acute exacerbation of systolic versus diastolic congestive heart failure. Pro BnP 24,400. Left ventricular ejection fraction estimated at 35 to 40%. The patient in addition has significant valvular heart disease with moderate to severe mitral regurgitation and moderate to severe aortic regurgitation Hyponatremia suspect secondary to poor oral intake, improved, sodium level is currently at 129 Valvular heart disease with moderate to severe mitral regurgitation, moderate to severe aortic regurgitation Dementia Paroxysmal atrial fibrillation, current rhythm is sinus. Hypothyroidism Hyperlipidemia History of hypertension Plan: Patient is currently on room air oxygen, no signs of any significant respite distress and the patient is stable, diuresing well with oral Lasix. Echocardiogram reviewed Continue Lasix 40 mg in the morning and 20 mg in the afternoon Continue antibiotics for now, overall clinical suspicion for pneumonia is extremely low, completing course of Zithromax. Procalcitonin is at 0.09 Heparin for DVT prophylaxis Pepcid for GI prophylaxis We will continue to follow
--- NOTE | 2025-02-24 23:26 | P.PN ---
Subjective Progress Note Date: 02/24/25 Patient is a 84-year-old female with a past medical history of hypertension, hyperlipidemia, osteoarthritis, coronary artery disease with prior cardiac catheterization 2021 recommends medical management and history of right hip surgery x 2 and is waiting for third surgery presents here with complaints of cough and shortness of breath since last night. Patient is also having hot and cold flashes. Denies any complaints of chest pain. No nausea vomiting abdominal pain or diarrhea. Patient is a poor historian due to underlying dementia. Chest x-ray on admission showed a below the right hemidiaphragm pulmonary: Interpretation in the absence of any signs symptoms of acute abdomen.Ongoing CHF with interstitial pulmonary edema. Ongoing small bilateral pleural effusions. Prominent adjacent atelectasis and/or consolidation at the left base. Right hip CT on 02/17/2025 stable right hip compared to prior study. Abnormality of the distal tip of the compression screw in the right femoral head with marked deformity of the head., Subchondral bone fragment and severe osteoarthritis of the right hip joint. EKG showed sinus rhythm with heart rate 99. Laboratory data showed WBC 12.43, hemoglobin 10.4 and platelets 296 neutrophils 9.89. Sodium 127 potassium 4.2 chloride 100 bicarb is 22 BUN 18 and creatinine 0.67 and blood sugar 105 proBNP 35029, total protein 5.8 and albumin 3.1 Influenza A B RSV and COVID-19 PCR not detected. Patient was given a dose of azithromycin and ceftriaxone in the ER. Also received 40 mg of IV Lasix x 1. 02/21/2025 Patient is lying in the bed. Awake alert does have underlying dementia. Currently on room air. Continue IV diuresis with Lasix 20 mg every 12. No c omplaints of chest pain or worsening shortness of breath. Patient is also on antibiotics in the form of ceftriaxone and azithromycin. Patient has been afebrile. Laboratory data showed WBC 11.3 hemoglobin 11.2 and platelets 303 Sodium 131 potassium 3.4 chloride 97 bicarb is 25 BUN 14 and creatinine 0.52 and blood sugar 104. Cardiology and pulmonary is on board. 2D echocardiogram showed left ventricular ejection fraction 35 to 40%. Moderately increased left ventricular wall thickness. RVSP 44, moderate to severe MR and moderate to severe aortic regurgitation. No pericardial effusion. 02/22/2025 Patient is awake alert and mental status at baseline. No complaints of chest pain. Shortness of breath is improving. Patient is currently on room air. No cough or sputum production. Laboratory data showed WBC 13.4 hemoglobin 10.4 and platelets 327 sodium 129 potassium 4.1 chloride 95 bicarb is 29 BUN 21 creatinine 0.66 and blood sugar is 102. Patient is on IV Lasix 20 mg every 12. Antibiotics with ceftriaxone and azithromycin. EKG showed atrial fibrillation with heart rate 98. 02/23/2025 Patient lives resting in the bed. More alert and awake today. No complaints of chest pain. No worsening shortness of breath. On room air. No cough or sputum production. Patient is on antibiotic in the form of ceftriaxone azithromycin. Lasix changed to 40 mg daily and 20 mg at 4 PM. Laboratory data showed WBC slightly increased to 14.5 hemoglobin 10.1 and platelets 344 sodium 129 potassium 3.8 chloride 97 bicarb 25 BUN 24 and creatinine 0.58 and blood sugar 94. Vitamin B12 881. 02/24/2025 Patient is resting in the bed. Mentation is at baseline. No complaints of chest pain or shortness of breath. Patient is on p.o. Lasix now. On room air. Laboratory data showed WBC down to 11.6 hemoglobin 9.6 and platelets 303 sodium 134 potassium 3.5, chloride 98 bicarb is 27 BUN 24 and creatinine 0.63 and blood sugar 104. Objective - Vital Signs Vital signs: Vital Signs Temp 97.7 F 02/24/25 20:02 Pulse 97 02/24/25 20:02 Resp 16 02/24/25 20:02 BP 151/73 02/24/25 20:02 Pulse Ox 94 L 02/24/25 20:02 FiO2 Intake & Output 02/24/25 02/24/25 02/25/25 06:59 18:59 06:59 Intake Total 300 Output Total 350 200 Balance -350 100 Weight 66 kg Intake: Intake, IV Titration 300 Amount Azithromycin 500 mg In 250 Sodium Chloride 0.9% 250 ml @ 250 mls/hr IVPB DAILY@1700 [facility] Rx#: [id number] cefTRIAXone 2 gm In 50 Dextrose 5% in Water 50 ml @ 100 mls/hr IVPB Q24HR [facility] Rx#:[id number] Output: Urine 350 200 Straight 350 Other: Voiding Method External Catheter External Catheter - Exam PHYSICAL EXAMINATION: Patient is lying in the bed,, no acute distress, awake alert and oriented.. HEENT: Normocephalic. Neck is supple. Pupils reactive. Nostrils clear. Oral cavity is moist. Neck reveals no JVD, carotid bruits, or thyromegaly. CHEST EXAMINATION: Trachea is central. Symmetrical expansion. Bibasilar coarse breath sounds. No wheezing or nonlabored breathing.. CARDIAC: Normal S1, S2 with no gallops. No murmurs ABDOMEN: Soft. Bowel sounds normal. No organomegaly. No abdominal bruits. Extremities: Trace bilateral pedal edema. No clubbing or cyanosis Neurologically awake, alert, oriented x 2. Underlying dementia. Able to move all extremities.. No gross focal deficits noted Skin: No rash or skin lesions. Psychiatric: Coperative. Nonsuicidal Musculoskeletal: No joint swelling or deformity. - Labs CBC & Chem 7: 02/24/25 07:49 02/24/25 07:49 Labs: Abnormal Lab Results - Last 24 Hours (Table) 02/23/25 02/24/25 02/24/25 Range/Units 06:23 07:49 07:49 WBC 11.60 H (4.50-10.00) 10*3/uL RBC 3.21 L (4.10-5.20) 10*6/uL Hgb 9.6 L (12.0-15.0) g/dL Hct 28.7 L (37.2-46.3) % Neutrophils # 9.77 H (1.80-7.70) 10*3/uL Eosinophils # 0.03 L (0.04-0.35) 10*3/uL Sodium 134 L (137-145) mmol/L BUN 24 H (7-17) mg/dL Glucose 104 H (74-99) mg/dL RBC Folate 819 H (280 - 791) ng/mL Assessment and Plan Assessment: Acute CHF with systolic dysfunction ejection fraction 35 to 40%. Coronary artery disease with history of cardiac catheterization in October 2022 showed complete RCA occlusion with collaterals. Medical management was recommen ded. Possible left lower lobe pneumonia Sepsis Hypertension uncontrolled Hyperemia Osteoarthritis with prior history of right hip surgery Hyponatremia Dementia Hypothyroidism Overactive bladder GI DVT prophylaxis Pepcid and heparin subcu Plan: Patient will be continued on telemonitoring. Was given IV Lasix 40 mg x 1 in the ER. Patient was on ceftriaxone and azithromycin. Antibiotics have been discontinued. Procalcitonin 0.09 Lasix changed to by mouth. 2D echocardiogram report as above. Continue with aspirin statin and metoprolol. Cardiology and pulmonary is on board.. Continue to follow closely. PT OT consult. Prognosis guarded. Pending authorization for rehab transfer. Time with Patient: Greater than 30
[2025-02-25 06:50] LABS: Basophils # (A) 0.04 10*3/uL (0.00-0.10); Basophils % (A) 0.4 %; Eosinophils # (A) 0.06 10*3/uL (0.04-0.35); Eosinophils % (A) 0.6 %; HCT 28.9 % (37.2-46.3); HGB 9.3 g/dL (12.0-15.0); Lymphocytes # (A) 0.85 10*3/uL (0.90-5.00); Lymphocytes % (A) 8.9 %; MCH 28.5 pg (27.0-32.0); MCHC 32.2 g/dL (32.0-37.0); MCV 88.7 fL (80.0-97.0); Mean Platelet Volume 10.1 fL (9.5-12.2); Monocytes # (A) 0.75 10*3/uL (0.20-1.00); Monocytes % (A) 7.8 %; Neutrophils # (A) 7.82 10*3/uL (1.80-7.70); Neutrophils % (A) 81.9 %; Platelet Count 345 10*3/uL (140-440); RBC 3.26 10*6/uL (4.10-5.20); RDW 13.3 % (11.5-14.5); WBC 9.56 10*3/uL (4.50-10.00)
[2025-02-25 07:20] LABS: African American GFR (CKD) >90 (>60 ml/min/1.73 sqM); Anion Gap 10 mmol/L; Blood Urea Nitrogen 28 mg/dL (7-17); Calcium 8.9 mg/dL (8.4-10.2); Carbon Dioxide 26 mmol/L (22-30); Chloride 99 mmol/L (98-107); Glucose 109 mg/dL (74-99); Non-African American GFR(CKD) 89 (>60 ml/min/1.73 sqM); Potassium 3.7 mmol/L (3.5-5.1); Sodium 135 mmol/L (137-145)
--- NOTE | 2025-02-25 10:46 | US ---
EXAMINATION TYPE: US carotid duplex BILAT DATE OF EXAM: 02/25/2025 COMPARISON: NONE CLINICAL INDICATION: Female, 84 years old with history of right neck pain; Right neck pain Additional History: .... TECHNIQUE: Grayscale, color Doppler and spectral Doppler evaluation of the bilateral carotid systems and vertebral arteries. Indirect Doppler criteria was utilized. FINDINGS: EXAM MEASUREMENTS: RIGHT: Peak Systolic Velocity (PSV) cm/sec ----- Right CCA: 109.5 ----- Right ICA: 171.7 ----- Right ECA: 81.2 ICA/CCA ratio: 1.6 RIGHT: End Diastole cm/sec ----- Right CCA: 13.7 ----- Right ICA: 20.7 ----- Right ECA: 0.0 LEFT: Peak Systolic Velocity (PSV) cm/sec ----- Left CCA: 55.9 ----- Left ICA: 123.6 ----- Left ECA: 114.7 ICA/CCA ratio: 2.2 LEFT: End Diastole cm/sec ----- Left CCA: 8.3 ----- Left ICA: 7.4 ----- Left ECA: 0.0 VERTEBRALS (direction of flow): Right Vertebral: Antegrade Left Vertebral: Antegrade Rhythm: Arrhythmia [employer]IL [employer] NOTES: *Plaque seen within bilateral bulbs. Elevated velocity mid right ICA. Color Doppler imaging shows patency with blood flow throughout the carotid artery. IMPRESSION: 1. Atheromatous plaquing present bilaterally. This is contributing to moderate stenosis between 50 an d 69% within the mid right internal carotid artery. Mild narrowing approaching 50% may be at the left internal carotid artery origin. Criteria for Assigning % of Stenosis / Diameter reduction (Estimation based on the indirect measurements of the internal carotid artery velocities (ICA PSV). 1. Normal (no stenosis)=ICA PSV < 180 cm/s: ratio < 2.0: ICA EDV<40 cm/s. 2. Less than 50% stenosis=ICA PSV < 180 cm/s: ratio < 2.0: ICA EDV<40 cm/s. 3. 50 to 69% stenosis=ICA PSV of 180 to 230 cm/s: ration 2.0 ? 4.0: ICA EDV 40-100 cm/s. PSV 125-180 cm/sec and ICA/CCA PSV Ratio ? 2.0 is also consistent with 50-69% stenosis 4. Greater than 70% stenosis to near occlusion= ICA PSV > 230 cm/s: ratio > 4.0: ICA EDV > 100 cm/s. 5. Near occlusion= ICA PSV velocities may be low or undetectable: variable ratio and ICA EDV. 6. Total occlusion=unable to detect flow. [facility], Workstation: [facility], 02/25/2025 10:44 AM
--- NOTE | 2025-02-25 16:22 | P.PN ---
Subjective Progress Note Date: 02/25/25 This is an 84-year-old female patient with a known history of hypertension, hyperlipidemia, coronary artery disease and dementia. She is a lifelong non- smoker. She presented here to the emergency room with complaints of increasing shortness of breath cough and congestion. She herself is a poor historian. Chest x-ray shows interstitial pulmonary edema with small bilateral pleural effusions. White count 11.3. Hemoglobin 11.2. Platelets 303. Sodium 131. Potassium 3.4. Bicarb 25. BUN 14. Creatinine 0.52. Glucose 104. proBNP 24,400. Viral screen negative for influenza A/B, RSV and COVID. She is seen today in consultation on the selective care unit. She is currently sitting up in bed eating breakfast. She is awake and alert in no acute distress. She is maintaining O2 saturations in the 90s on room air. No IV fluids. She is afebrile. Hemodynamically stable. She has been initiated on Lasix 20 mg IV every 12 hours. Currently with 2 L urine output. Antibiotics in the form of ceftriaxone and azithromycin. Procalcitonin pending. The patient is seen today February 22, 2025 in follow-up on the selective care unit. She is currently sitting up in bed. Awake and alert in no acute distress. She is maintaining good O2 saturations in the 90s on room air oxygen. She is afebrile. Hemodynamically stable. White count 13.4. Hemoglobin 10.4. Platelets 327. Sodium 129. Potassium 4.1. Bicarb 29. BUN 21. Creatinine 0.66. Glucose 102. She is continued on ceftriaxone and azithromycin. Continued on IV Lasix. Heparin for DVT prophylaxis. Currently in a -200 mL balance. Procalcitonin pending. Echocardiogram revealed impaired left ventricular systolic function with ejection fraction 35 to 40%. Moderate to severe mitral regurgitation. Moderate to severe aortic regurgitation. On 02/23/2025, the patient is on room air oxygen. The patient is calm and comfortable. Ability to provide history is limited and the patient has occasional morning. Nevertheless, she does not seem to be in respiratory distress. She remains on IV Rocephin and Zithromax. Rest of the medications remain unchanged. Reviewed the chest x-ray from 02/21/2025 and the chest x-ray shows mild CHF findings. Otherwise, no other significant events overnight. She is known to have CAD hypertension hyperlipidemia. She is a lifetime non-smoker. She has chronic dementia. proBNP level at the time of admission was above 24,000. The viral screen was negative. The patient echocardiogram showed impaired LV function with an ejection fraction of 35 to 40% with moderate to severe MR and moderate to severe aortic valve regurgitation. She is also having paroxysmal atrial fibrillation. She is receiving Lasix and she was given 20 mg of IV Lasix earlier in the patient is currently on Lasix 40 mg in the morning and 20 mg in the afternoon. The fluid balance seems to be negative although this has not been accurately measured. On today's evaluation of 02/24/2025, the patient is on room air oxygen. She is calm and comfortable. Denies having any significant shortness of breath. She is currently on oral Lasix 40 mg in the morning and 20 mg in the afternoon. She is producing adequate urine output. She remains on empiric antibiotic coverage with Zithromax. The white cell count 11.6 with a hemoglobin 9.6 and a platelet count of 303. BUN 24 with a creatinine 0.6 and a sodium levels at 134. Tolerating diet. Hemodynamically stable. No other significant events overnight. On 02/25/2025, the patient is being seen for a follow-up. Resting comfortably in bed. No new complaints. She remains on room air oxygen. Afebrile. Hemodynamically stable. Remains on oral diuretics. No other significant events overnight. No reported aspiration. Tolerating diet.Labs from today shows a w gregory cell count of 9.5, hemoglobin 9.3 and a platelet count of 345. BUN is 28 with a creatinine of 0.49 and sodium is 135 and a potassium level is at 3.7. Objective - Vital Signs Vital signs: Vital Signs Temp 97.5 F L 02/25/25 08:29 Pulse 89 02/25/25 08:29 Resp 14 02/25/25 08:29 BP 165/76 02/25/25 08:29 Pulse Ox 97 02/25/25 08:29 FiO2 Intake & Output 02/24/25 02/25/25 02/25/25 18:59 06:59 18:59 Intake Total 300 Output Total 200 200 Balance 100 -200 Weight 65.1 kg Intake: Intake, IV Titration 300 Amount Azithromycin 500 mg In 250 Sodium Chloride 0.9% 250 ml @ 250 mls/hr IVPB DAILY@1700 [facility] Rx#: [id number] cefTRIAXone 2 gm In 50 Dextrose 5% in Water 50 ml @ 100 mls/hr IVPB Q24HR [facility] Rx#:[id number] Output: Urine 200 200 Other: Voiding Method External Catheter Indwelling Catheter - Exam GENERAL EXAM: Alert, pleasant 84-year-old female, on room air, comfortable in no apparent distress. HEAD: Normocephalic. EYES: Normal reaction of pupils, equal size. NOSE: Clear with pink turbinates. THROAT: No erythema or exudates. NECK: No masses, no JVD. CHEST: No chest wall deformity. LUNGS: Equal air entry with few scattered rhonchi. CVS: S1 and S2 normal with an audible murmur, regular rhythm. ABDOMEN: No hepatosplenomegaly, normal bowel sounds, no guarding or rigidity. SPINE: No scoliosis or deformity SKIN: No rashes CENTRAL NERVOUS SYSTEM: No focal deficits, tone is normal in all 4 extremities. EXTREMITIES: There is no peripheral edema. No clubbing, no cyanosis. Peripheral pulses are intact. - Labs CBC & Chem 7: 02/25/25 05:56 02/25/25 05:56 Labs: Abnormal Lab Results - Last 24 Hours (Table) 02/25/25 02/25/25 Range/Units 05:56 05:56 RBC 3.26 L (4.10-5.20) 10*6/uL Hgb 9.3 L (12.0-15.0) g/dL Hct 28.9 L (37.2-46.3) % Neutrophils # 7.82 H (1.80-7.70) 10*3/uL Lymphocytes # 0.85 L (0.90-5.00) 10*3/uL Sodium 135 L (137-145) mmol/L BUN 28 H (7-17) mg/dL Creatinine 0.49 L (0.52-1.04) mg/dL Glucose 109 H (74-99) mg/dL Assessment and Plan Plan: Acute on chronic CHF with secondary shortness of breath, currently stable Acute hypoxic respiratory failure currently on room air oxygen Acute on chronic dyspnea secondary to an acute exacerbation of systolic versus diastolic congestive heart failure. Pro BnP 24,400. Left ventricular ejection fraction estimated at 35 to 40%. The patient in addition has significant valvular heart disease with moderate to severe mitral regurgitation and moderate to severe aortic regurgitation Hyponatremia suspect secondary to poor oral intake, improved, sodium level is currently at 129 Valvular heart disease with moderate to severe mitral regurgitation, moderate to severe aortic regurgitation Dementia Paroxysmal atrial fibrillation, current rhythm is sinus. Hypothyroidism Hyperlipidemia History of hypertension Plan: Clinically stable and the patient remains on room air oxygen Patient is on oral Lasix Echocardiogram reviewed Blood work and electrolytes are all within normal limits. K level is to be replaced Continue Lasix 40 mg in the morning and 20 mg in the afternoon Continue antibiotics for now, overall clinical suspicion for pneumonia is extremely low, completing course of Zithromax. Procalcitonin is at 0.09 Heparin for DVT prophylaxis Pepcid for GI prophylaxis We will continue to follow
--- NOTE | 2025-02-25 21:15 | P.PN ---
Subjective Patient is a 84-year-old female with a past medical history of hypertension, hyperlipidemia, osteoarthritis, coronary artery disease with prior cardiac catheterization 2021 recommends medical management and history of right hip surgery x 2 and is waiting for third surgery presents here with complaints of cough and shortness of breath since last night. Patient is also having hot and cold flashes. Denies any complaints of chest pain. No nausea vomiting abdominal pain or diarrhea. Patient is a poor historian due to underlying dementia. Chest x-ray on admission showed a below the right hemidiaphragm pulmonary: Interpretation in the absence of any signs symptoms of acute abdomen.Ongoing CHF with interstitial pulmonary edema. Ongoing small bilateral pleural effusions. Prominent adjacent atelectasis and/or consolidation at the left base. Right hip CT on 02/17/2025 stable right hip compared to prior study. Abnormality of the distal tip of the compression screw in the right femoral head with marked deformity of the head., Subchondral bone fragment and severe osteoarthritis of the right hip joint. EKG showed sinus rhythm with heart rate 99. Laboratory data showed WBC 12.43, hemoglobin 10.4 and platelets 296 neutrophils 9.89. Sodium 127 potassium 4.2 chloride 100 bicarb is 22 BUN 18 and creatinine 0.67 and blood sugar 105 proBNP 23511, total protein 5.8 and albumin 3.1 Influenza A B RSV and COVID-19 PCR not detected. Patient was given a dose of azithromycin and ceftriaxone in the ER. Also received 40 mg of IV Lasix x 1. 02/21/2025 Patient is lying in the bed. Awake alert does have underlying dementia. Currently on room air. Continue IV diuresis with Lasix 20 mg every 12. No complaints of chest pain or worsening shortness of breath. Patient is also on antibiotics in the form of ceftriaxone and azithromycin. Patient has been afebrile. Laboratory data showed WBC 11.3 hemoglobin 11.2 and platelets 303 Sodium 131 potassium 3.4 chloride 97 bicarb is 25 BUN 14 and creatinine 0.52 and blood sugar 104. Cardiology and pulmonary is on board. 2D echocardiogram showed left ventricular ejection fraction 35 to 40%. Moder ately increased left ventricular wall thickness. RVSP 44, moderate to severe MR and moderate to severe aortic regurgitation. No pericardial effusion. 02/22/2025 Patient is awake alert and mental status at baseline. No complaints of chest pain. Shortness of breath is improving. Patient is currently on room air. No cough or sputum production. Laboratory data showed WBC 13.4 hemoglobin 10.4 and platelets 327 sodium 129 potassium 4.1 chloride 95 bicarb is 29 BUN 21 creatinine 0.66 and blood sugar is 102. Patient is on IV Lasix 20 mg every 12. Antibiotics with ceftriaxone and azithromycin. EKG showed atrial fibrillation with heart rate 98. 02/23/2025 Patient lives resting in the bed. More alert and awake today. No complaints of chest pain. No worsening shortness of breath. On room air. No cough or sputum production. Patient is on antibiotic in the form of ceftriaxone azithromycin. Lasix changed to 40 mg daily and 20 mg at 4 PM. Laboratory data showed WBC slightly increased to 14.5 hemoglobin 10.1 and platelets 344 sodium 129 potassium 3.8 chloride 97 bicarb 25 BUN 24 and cre atinine 0.58 and blood sugar 94. Vitamin B12 881. 02/24/2025 Patient is resting in the bed. Mentation is at baseline. No complaints of chest pain or shortness of breath. Patient is on p.o. Lasix now. On room air. Laboratory data showed WBC down to 11.6 hemoglobin 9.6 and platelets 303 sodium 134 potassium 3.5, chloride 98 bicarb is 27 BUN 24 and creatinine 0.63 and blood sugar 104. 02/25 Patient awake alert She denies chest pain or dyspnea Patient was complaining from right neck pain, 01/12 Carotid duplex ordered showing carotid artery stenosis 50 to 69% Vascular surgery team consulted Pulmonary team has been following the patient and cleared for discharge today Patient still pending authorization to go to [facility]. senior research project manager on the case Discussed with staff Objective - Vital Signs Vital signs: Vital Signs Temp 97.5 F L 02/25/25 08:29 Pulse 89 02/25/25 08:29 Resp 14 02/25/25 08:29 BP 165/76 02/25/25 08:29 Pulse Ox 97 02/25/25 08:29 FiO2 Intake & Output 02/24/25 02/25/25 02/25/25 18:59 06:59 18:59 Intake Total 300 Output Total 200 200 Balance 100 -200 Weight 65.1 kg Intake: Intake, IV Titration 300 Amount Azithromycin 500 mg In 250 Sodium Chloride 0.9% 250 ml @ 250 mls/hr IVPB DAILY@1700 [facility] Rx#: [id number] cefTRIAXone 2 gm In 50 Dextrose 5% in Water 50 ml @ 100 mls/hr IVPB Q24HR [facility] Rx#:[id number] Output: Urine 200 200 Other: Voiding Method External Catheter Indwelling Catheter - Exam GENERAL: The patient is alert and oriented x3, not in any acute distress. Well developed, well nourished. HEENT: Pupils are round and equally reacting to light. EOMI. No scleral icterus. No conjunctival pallor. Normocephalic, atraumatic. No pharyngeal erythema. No thyromegaly. CARDIOVASCULAR: S1 and S2 present. No murmurs, rubs, or gallops. PULMONARY: Chest is clear to auscultation, no wheezing , no crackles. ABDOMEN: Soft, nontender, nondistended, normoactive bowel sounds. No palpable organomegaly. MUSCULOSKELETAL: No joint swelling or deformity. EXTREMITIES: No cyanosis, clubbing, or pedal edema. NEUROLOGICAL: Gross neurological examination did not reveal any focal deficits. SKIN: No rashes. no petechiae. - Labs CBC & Chem 7: 02/25/25 05:56 02/25/25 05:56 Labs: Abnormal Lab Results - Last 24 Hours (Table) 02/23/25 02/25/25 02/25/25 Range/Units 06:23 05:56 05:56 RBC 3.26 L (4.10-5.20) 10*6/uL Hgb 9.3 L (12.0-15.0) g/dL Hct 28.9 L (37.2-46.3) % Neutrophils # 7.82 H (1.80-7.70) 10*3/uL Lymphocytes # 0.85 L (0.90-5.00) 10*3/uL Sodium 135 L (137-145) mmol/L BUN 28 H (7-17) mg/dL Creatinine 0.49 L (0.52-1.04) mg/dL Glucose 109 H (74-99) mg/dL RBC Folate 819 H (280 - 791) ng/mL Assessment and Plan Assessment: Right neck pain with carotid artery stenosis 50 to 69% Acute CHF with systolic dysfunction ejection fraction 35 to 40%. Improved Coronary artery disease with history of cardiac catheterization in October 2022 showed complete RCA occlusion with collaterals. Medical management was recommended. Possible left lower lobe pneumonia Sepsis Hypertension uncontrolled Hyperemia Osteoarthritis with prior history of right hip surgery Hyponatremia Dementia Hypothyroidism Overactive bladder Plan: Patient currently on oral Lasix She is euvolemic and cleared by cardiology and pulmonary service for discharge Complaining from neck pain with carotid artery stenosis, vascular surgery team were consulted Pending placement Continue with current medication GI prophylaxis Pepcid DVT prophylaxis: Subcutaneous heparin Possible discharge in 24 to 48 hours Prognosis remains guarded
[2025-02-26 07:56] VITALS: TEMP 96.7
--- NOTE | 2025-02-26 12:09 | P.GSCN ---
History of Present Illness Consult date: 02/26/25 Reason for Consult: Carotid stenosis Requesting physician: Chris E Sheet History of present illness: This is a 84-year-old female who appears and pleasantly confused with a past medical history including dementia, hypertension, hyperlipidemia, osteoarthritis, atrial fibrillation, coronary artery disease with prior cardiac catheterization and recent hip surgery who had presented to the emergency department 6 days ago with complaints of cough and shortness of breath. Patient was admitted to the hospital with shortness of breath and acute on chronic heart failure. Cardiology optimize patient they have signed off. Medicine team and pulmonology following. Patient had a carotid duplex ordered per primary medical team apparently for complaints of neck pain. Carotid ultrasound reported 50 to 69% stenosis mid right ICA and less than 50% of left ICA. Vascular surgery was consulted for carotid stenosis. Patient does not appear to have any focal deficits. Again she is pleasantly confused but does not appear to have a history of TIA or CVA. She has no focal deficits noted at this time. Review of Systems A 14 point review systems was completed all pertinent positives and negatives as stated in the HPI. Past Medical History Past Medical History: Coronary Artery Disease (CAD), Dementia, Hyperlipidemia, Hypertension, Osteoarthritis (OA) Additional Past Medical History / Comment(s): hx falls, states fx right hip with surgery x2 and needs a 3rd surgery., uses walker., back & shoulder pain., see cardiology h & P, hallucinations(shadows of a cat) History of Any Multi-Drug Resistant Organisms: None Reported Past Surgical History: Joint Replacement, Orthopedic Surgery, Tubal Ligation Additional Past Surgical History / Comment(s): HX FALL WITH LEFT HIP FX SURGERY, HX FALL WITH RIGHT HIP SURGERY X2. Past Anesthesia/Blood Transfusion Reactions: No Reported Reaction Past Psychological History: No Psychological Hx Reported Smoking Status: Never smoker Past Alcohol Use History: None Reported Past Drug Use History: None Reported - Past Family History Mother Family Medical History: No Reported History Father Family Medical History: Asthma Additional Family Medical History / Comment(s): blood disorder- had too much blood . Sister(s) Family Medical History: Diabetes Mellitus Brother(s) Family Medical History: Cancer, Hypertension Son(s) Family Medical History: No Reported History Additional Family Medical History / Comment(s): pacemaker Daughter(s) Family Medical History: Coronary Artery Disease (CAD) Additional Family Medical History / Comment(s): 2 Daughters -Cardiac stents. Medications and Allergies Home Medications Medication Instructions Recorded Confirmed Type Simvastatin [Zocor] 40 mg PO DAILY 10/05/22 02/20/25 History Metoprolol Succinate (ER) [Toprol 25 mg PO BID #60 tab 07/23/23 02/20/25 Rx XL] Valsartan [Diovan] 80 mg PO BID #60 tab 07/23/23 02/20/25 Rx Levothyroxine Sodium [Synthroid] 25 mcg PO DAILY 01/31/24 02/20/25 History Sulfamethox-Tmp 800-160Mg [Bactrim 1 tab PO BID 02/20/25 02/20/25 History DS 800-160 mg] Vibegron [Gemtesa] 75 mg PO HS 02/20/25 02/20/25 History Allergies Allergy/AdvReac Type Severity Reaction Status Date / Time No Known Allergies Allergy Verified 02/20/25 17:33 Surgical - Exam Vital Signs Temp Pulse Resp BP Pulse Ox 98.6 F 100 14 167/89 94 L 02/20/25 14:31 02/20/25 14:31 02/20/25 14:31 02/20/25 14:31 02/20/25 14:31 General appearance: The patient is alert, oriented, appears in no acute d istress. HET: Head is normocephalic and atraumatic. Pupils are equal and reactive. Neck: Supple. No carotid bruit Heart: Regular. Lungs: Equal expansion, normal respiratory effort. Abdomen: Soft, nontender, nondistended. Extremities: Normal skin color and turgor. Palpable bilateral PT and DP pulses. Neurological: No focal deficits. Strength and sensation are grossly intact. Results - Labs 02/25/25 05:56 02/25/25 05:56 - Imaging Comments: Carotid duplex Right ICA PSV 171.7, ICA/CCA ratio 1.6 Left ICA PSV 123.6 ICA/CCA ratio 2.2 Impression reads atheromatous plaquing present bilaterally. This is contributing to moderate stenosis between 50 and 69% within the mid right internal carotid artery. Mild narrowing approaching 50% may be at the left internal carotid artery origin. Carotid duplex independently reviewed, bilateral PSV and ICA/CCA ratio by updated criteria are less than 50% bilaterally Assessment and Plan Assessment: 1. No hemodynamically significant internal carotid artery stenosis bilaterally 2. Congestive heart failure with shortness of breath 3. Coronary artery disease 4. Atrial fibrillation 5. Hypertension and hyperlipidemia 6. Dementia Plan: There is no hemodynamically significant carotid stenosis bilaterally. There is no indication for any vascular surgical intervention. Patient can follow-up outpatient either with cardiology or vascular surgery for carotid surveillance. Continue rest of medical management per primary medical team. Thank you for this consultation, we will sign off at this time. The impression and plan of care has been dictated as directed. Dr. Medina I performed a history and examination of this patient, discussed the same with the dictator. I agree with the dictator's note ,documented as a scribe. Any additional findings or plans will be noted.
--- NOTE | 2025-02-26 12:50 | P.DS ---
Providers Date of admission: 02/20/25 16:22 Attending physician: Francis Camacho Consults: 02/20/25 16:19 Consult Physician Routine Consulting Provider: Tong Hill Consult Reason/Comments: pneumonia Do you want consulting provider notified?: Yes 02/20/25 16:21 Consult Physician Routine Consulting Provider: Salty Caldwell Consult Reason/Comments: heart failure Do you want consulting provider notified?: Yes 02/25/25 14:50 Consult Physician Urgent Consulting Provider: Gilberto Flores Consult Reason/Comments: carotid artery diseae Do you want consulting provider notified?: Yes Primary care physician: Marbin Braden Hospital Course: Diagnoses: Acute CHF with systolic dysfunction ejection fraction 35 to 40%. Improved Coronary artery disease with history of cardiac catheterization in October 2022 showed complete RCA occlusion with collaterals. Medical management was recommended. Possible left lower lobe pneumonia Sepsis Right neck pain with carotid artery stenosis 50 to 69% currently is asymptomatic. Reevaluated by vascular surgery and recommended outpatient follow-up Hypertension uncontrolled Hyperemia Osteoarthritis with prior history of right hip surgery Hyponatremia Dementia Hypothyroidism Overactive bladder Hospital course: Patient is a 84-year-old female with a past medical history of hypertension, hyperlipidemia, osteoarthritis, coronary artery disease with prior cardiac catheterization 2021 recommends medical management and history of right hip surgery x 2 and is waiting for third surgery presents here with complaints of cough and shortness of breath since last night. Patient evaluated by cardiology service and pulmonary service. Patient was found to have acute CHF with low ejection fraction 35 to 40%. The patient was treated with diuretic. Patient currently euvolemic and she is placed on oral Lasix 40 mg daily and 20 mg at bedtime No dyspnea no chest pain no other new or GI or symptoms. No headache dizziness weakness or numbness Procalcitonin is negative at 0.09. Patient feels fine. She has some neck pain yesterday carotid duplex showing mild carotid artery stenosis, she was evaluated by vascular surgery team who cleared her for discharge and follow-up as an outpatient Patient other than she is doing well denies any other new complaint and she is agreeable for discharge today. Patient was discharged and cleared for discharge by all consultants including pulmonary, vascular surgery. Cardiology team as they signed off earlier Problems and management plan were discussed with the patient and he verbalized understanding and acceptance Patient was found stable and can be discharged home in guarded prognosis however he needs follow-up as an outpatient. Patient was instructed to follow up with PCP within one week and patient agrees Follow-up with [employer] in 2 weeks as instructed Physical exam -Gen: patient is a AAOx3, no distress. Generally weak CVS: S1-S2, RRR, no murmur Lungs: B/L CTA, no wheezing Abdomen: soft, no distention, no tenderness, positive bowel sounds Extremity: no leg edema or induration Time spent more than 35 minutes Patient Condition at Discharge: Fair Plan - Discharge Summary New Discharge Prescriptions: No Action Valsartan [Diovan] 80 mg PO BID #60 tab Levothyroxine Sodium [Synthroid] 25 mcg PO DAILY Sulfamethox-Tmp 800-160Mg [Bactrim DS 800-160 mg] 1 tab PO BID Vibegron [Gemtesa] 75 mg PO HS Simvastatin [Zocor] 40 mg PO DAILY Metoprolol Succinate (ER) [Toprol XL] 25 mg PO BID #60 tab Discharge Medication List Simvastatin [Zocor] 40 mg PO DAILY 10/05/22 [History] Metoprolol Succinate (ER) [Toprol XL] 25 mg PO BID #60 tab 07/23/23 [Rx] Valsartan [Diovan] 80 mg PO BID #60 tab 07/23/23 [Rx] Levothyroxine Sodium [Synthroid] 25 mcg PO DAILY 01/31/24 [History] Vibegron [Gemtesa] 75 mg PO HS 02/20/25 [History] Furosemide [Lasix] 20 mg PO 1600 tab 02/26/25 [Rx] Furosemide [Lasix] 40 mg PO DAILY tab 02/26/25 [Rx] HYDROcodone/APAP 5-325MG [[place] 5-325] 1 each PO Q12HR PRN #3 tab 02/26/25 [Rx] Sennosides [Senokot] 8.6 mg PO BID tab 02/26/25 [Rx] guaiFENesin SYRUP 100MG/5ML [Robitussin] 200 mg PO Q4HR PRN ml 02/26/25 [Rx] Follow up Appointment(s)/Referral(s): Arias Medina DO [Doctor of Osteopathic Medicine] - 4 Weeks Cooper Flores, [NON-STAFF] - 1 Week Marbin Braden MD [Primary Care Provider] - 1-2 days
--- NOTE | 2025-02-26 13:58 | P.PN ---
Subjective Progress Note Date: 02/26/25 This is an 84-year-old female patient with a known history of hypertension, hyperlipidemia, coronary artery disease and dementia. She is a lifelong non- smoker. She presented here to the emergency room with complaints of increasing shortness of breath cough and congestion. She herself is a poor historian. Chest x-ray shows interstitial pulmonary edema with small bilateral pleural effusions. White count 11.3. Hemoglobin 11.2. Platelets 303. Sodium 131. Potassium 3.4. Bicarb 25. BUN 14. Creatinine 0.52. Glucose 104. proBNP 24,400. Viral screen negative for influenza A/B, RSV and COVID. She is seen today in consultation on the selective care unit. She is currently sitting up in bed eating breakfast. She is awake and alert in no acute distress. She is maintaining O2 saturations in the 90s on room air. No IV fluids. She is afebrile. Hemodynamically stable. She has been initiated on Lasix 20 mg IV every 12 hours. Currently with 2 L urine output. Antibiotics in the form of ceftriaxone and azithromycin. Procalcitonin pending. The patient is seen today February 22, 2025 in follow-up on the selective care unit. She is currently sitting up in bed. Awake and alert in no acute distress. She is maintaining good O2 saturations in the 90s on room air oxygen. She is afebrile. Hemodynamically stable. White count 13.4. Hemoglobin 10.4. Platelets 327. Sodium 129. Potassium 4.1. Bicarb 29. BUN 21. Creatinine 0.66. Glucose 102. She is continued on ceftriaxone and azithromycin. Continued on IV Lasix. Heparin for DVT prophylaxis. Currently in a -200 mL balance. Procalcitonin pending. Echocardiogram revealed impaired left ventricular systolic function with ejection fraction 35 to 40%. Moderate to severe mitral regurgitation. Moderate to severe aortic regurgitation. On 02/23/2025, the patient is on room air oxygen. The patient is calm and comfortable. Ability to provide history is limited and the patient has occasional morning. Nevertheless, she does not seem to be in respiratory distress. She remains on IV Rocephin and Zithromax. Rest of the medications remain unchanged. Reviewed the chest x-ray from 02/21/2025 and the chest x-ray shows mild CHF findings. Otherwise, no other significant events overnight. She is known to have CAD hypertension hyperlipidemia. She is a lifetime non-smoker. She has chronic dementia. proBNP level at the time of admission was above 24,000. The viral screen was negative. The patient echocardiogram showed impaired LV function with an ejection fraction of 35 to 40% with moderate to severe MR and moderate to severe aortic valve regurgitation. She is also having paroxysmal atrial fibrillation. She is receiving Lasix and she was given 20 mg of IV Lasix earlier in the patient is currently on Lasix 40 mg in the morning and 20 mg in the afternoon. The fluid balance seems to be negative although this has not been accurately measured. On today's evaluation of 02/24/2025, the patient is on room air oxygen. She is calm and comfortable. Denies having any significant shortness of breath. She is currently on oral Lasix 40 mg in the morning and 20 mg in the afternoon. She is producing adequate urine output. She remains on empiric antibiotic coverage with Zithromax. The white cell count 11.6 with a hemoglobin 9.6 and a platelet count of 303. BUN 24 with a creatinine 0.6 and a sodium levels at 134. Tolerating diet. Hemodynamically stable. No other significant events overnight. On 02/25/2025, the patient is being seen for a follow-up. Resting comfortably in bed. No new complaints. She remains on room air oxygen. Afebrile. Hemodynamically stable. Remains on oral diuretics. No other significant events overnight. No reported aspiration. Tolerating diet.Labs from today shows a w gregory cell count of 9.5, hemoglobin 9.3 and a platelet count of 345. BUN is 28 with a creatinine of 0.49 and sodium is 135 and a potassium level is at 3.7. On 02/26/2025, the patient is resting comfortably in bed. She remains on room air oxygen with a pulse ox of 98%. Tolerating diet. No new complaints for now. Hemodynamically stable. Remains on oral Lasix. The patient is being discharged to [facility] today. She will be kept on Lasix 40 mg morning and 20 mg in the afternoon. Should be kept on Toprol-XL 25 mg p.o. twice a day and Diovan 80 mg p.o. twice daily. She is also on Synthroid. Her statins are in the form of Zocor. No new labs are available from today. She is chronically anemic with a hemoglobin of 9.3 from yesterday. Renal function was stable from yesterday. She remains on room air oxygen. No other significant events overnight. Objective - Vital Signs Vital signs: Vital Signs Temp 96.7 F L 02/26/25 07:20 Pulse 96 02/26/25 11:40 Resp 18 02/26/25 11:40 BP 130/77 02/26/25 11:40 Pulse Ox 98 02/26/25 11:40 FiO2 Intake & Output 02/25/25 02/26/25 02/26/25 18:59 06:59 18:59 Output Total 250 250 225 Balance -250 -250 -225 Weight 66 kg Output: Urine 250 250 225 Other: Voiding Method Indwelling Catheter Indwelling Catheter - Exam GENERAL EXAM: Alert, pleasant 84-year-old female, on room air, comfortable in no apparent distress. HEAD: Normocephalic. EYES: Normal reaction of pupils, equal size. NOSE: Clear with pink turbinates. THROAT: No erythema or exudates. NECK: No masses, no JVD. CHEST: No chest wall deformity. LUNGS: Equal air entry with few scattered rhonchi. CVS: S1 and S2 normal with an audible murmur, regular rhythm. ABDOMEN: No hepatosplenomegaly, normal bowel sounds, no guarding or rigidity. SPINE: No scoliosis or deformity SKIN: No rashes CENTRAL NERVOUS SYSTEM: No focal deficits, tone is normal in all 4 extremities. EXTREMITIES: There is no peripheral edema. No clubbing, no cyanosis. Peripheral pulses are intact. - Labs CBC & Chem 7: 02/25/25 05:56 02/25/25 05:56 Assessment and Plan Plan: Acute on chronic CHF with secondary shortness of breath, currently stable Acute hypoxic respiratory failure currently on room air oxygen Acute on chronic dyspnea secondary to an acute exacerbation of systolic versus diastolic congestive heart failure. Pro BnP 24,400. Left ventricular ejection fraction estimated at 35 to 40%. The patient in addition has significant valvular heart disease with moderate to severe mitral regurgitation and moderate to severe aortic regurgitation Hyponatremia suspect secondary to poor oral intake, improved, sodium level is within normal limits. Valvular heart disease with moderate to severe mitral regurgitation, moderate to severe aortic regurgitation Dementia Paroxysmal atrial fibrillation, current rhythm is sinus. Hypothyroidism Hyperlipidemia History of hypertension Plan: Clinically stable and the patient remains on room air oxygen, no issues with breathing for now. Patient is on oral Lasix, 40 mg in the morning and 20 mg in the afternoon Echocardiogram reviewed Blood work and electrolytes are all within normal limits. K level is to be replaced Continue antibiotics for now, overall clinical suspicion for pneumonia is extremely low, completing course of Zithromax. Procalcitonin is at 0.09 Heparin for DVT prophylaxis Pepcid for GI prophylaxis We will continue to follow The patient is to be discharged tomorrow with manage today.
[2025-02-26 18:42] VITALS: BP 136/74; PULSE 85; RESP 14
== END 2025-02-26 19:55 | DRG 871 ==
LOC: EC 14:25 → 3SCARD 16:22
PROVIDERS: ADMIT Internal Medicine; ATTEND Internal Medicine
DX: A41.9 Sepsis, unspecified organism (principal); I50.23 Acute on chronic systolic (congestive) heart failure; J18.9 Pneumonia, unspecified organism; I11.0 Hypertensive heart disease with heart failure; F03.90 Unspecified dementia, unspecified severity, without behavioral disturbance, psychotic disturbance, mood disturbance, and anxiety; E03.9 Hypothyroidism, unspecified; D64.9 Anemia, unspecified; I08.0 Rheumatic disorders of both mitral and aortic valves; I65.29 Occlusion and stenosis of unspecified carotid artery; E87.1 Hypo-osmolality and hyponatremia; I48.0 Paroxysmal atrial fibrillation; Z11.52 Encounter for screening for COVID-19; Z79.890 Hormone replacement therapy; I25.10 Atherosclerotic heart disease of native coronary artery without angina pectoris; E78.5 Hyperlipidemia, unspecified; Z79.01 Long term (current) use of anticoagulants; M16.11 Unilateral primary osteoarthritis, right hip; N32.81 Overactive bladder; Z79.82 Long term (current) use of aspirin; Z79.899 Other long term (current) drug therapy; Z82.49 Family history of ischemic heart disease and other diseases of the circulatory system; Z82.5 Family history of asthma and other chronic lower respiratory diseases; Z98.51 Tubal ligation status; Z91.81 History of falling
CPT/HCPCS: 36415; 71046; 80048; 80053; 82607; 82747; 83880; 84145; 85025; 87449; 87636; 93005; 93306; 93880; 96361; 96374; 96375; 99285

== ENCOUNTER 2025-03-03 14:41 | Inpatient (IN) | payer MEDICARE ==
--- NOTE | 2025-03-03 15:14 | ED ---
URI HPI - General Chief Complaint: Upper Respiratory Infection Stated Complaint: Failure to thrive Time Seen by Provider: 03/03/25 15:03 Source: patient, RN notes reviewed, old records reviewed Mode of arrival: EMS Limitations: altered mental status - History of Present Illness Initial Comments: This is an 84-year-old female to the ER. This patient presents today for evaluation in regards to shortness of breath with cough and congestion patient has severe dementia unable provide history history obtained from family and charting notes. Patient was sent to our facility from [facility] for cough and congestion and shortness of breath MD Complaint: fever, cough, sore throat, nasal congestion -: days(s) Severity: moderate Severity scale (1-10): 5 Consistency: constant Improves With: nothing Worsens With: nothing Context: sick contacts Associated Symptoms: nasal congestion Treatments Prior to Arrival: none - Related Data Home Medications Medication Instructions Recorded Confirmed Simvastatin [Zocor] 40 mg PO DAILY@1700 10/05/22 03/07/25 Levothyroxine Sodium [Synthroid] 25 mcg PO DAILY@0800 01/31/24 03/07/25 Vibegron [Gemtesa] 75 mg PO HS@2100 02/20/25 03/07/25 Acetaminophen [Tylenol] 650 mg PO Q4H PRN 03/03/25 03/07/25 Ensure Enlive 237 ml PO TID@0800,1200,1700 03/03/25 03/07/25 Furosemide [Lasix] 20 mg PO DAILY@1630 03/03/25 03/07/25 Furosemide [Lasix] 40 mg PO DAILY@0800 03/03/25 03/07/25 HYDROcodone/APAP 5-325MG [Excelsior 1 tab PO Q8H PRN 03/03/25 03/07/25 5-325] Magic Cup 1 dose PO W/SUPPER@17003/03/25 03/07/25 Magnesium Hydroxide [Milk of 7,200 mg PO Q48H PRN 03/03/25 03/07/25 Magnesia Concentrate] Metoprolol Succinate (ER) [Toprol 25 mg PO BID@0800,1700 03/03/25 03/07/25 XL] Na Phos,M-B/Na Phos,Di-Ba [Fleet 133 ml RECTAL DAILY PRN 03/03/25 03/07/25 Adult] Sennosides [Senokot] 8.6 mg PO BID@0800,1700 03/03/25 03/07/25 Valsartan [Diovan] 80 mg PO BID@0800,1700 03/03/25 03/07/25 bisacodyL [Dulcolax] 10 mg RECTAL DAILY PRN 03/03/25 03/07/25 polyethylene glycoL 3350 [Miralax] 17 gm PO DAILY@0800 03/03/25 03/07/25 Previous Rx's Medication Instructions Recorded guaiFENesin SYRUP 100MG/5ML 200 mg PO Q4HR PRN ml 02/26/25 [Robitussin] Allergies Allergy/AdvReac Type Severity Reaction Status Date / Time No Known Allergies Allergy Verified 03/03/25 16:19 Review of Systems ROS Statement: Those systems with pertinent positive or pertinent negative responses have been documented in the HPI. ROS Other: All systems not noted in ROS Statement are negative. Past Medical History Past Medical History: Coronary Artery Disease (CAD), Dementia, Hyperlipidemia, Hypertension, Osteoarthritis (OA) Additional Past Medical History / Comment(s): hx falls, states fx right hip with surgery x2 and needs a 3rd surgery., uses walker., back & shoulder pain., see cardiology h & P, hallucinations(shadows of a cat) History of Any Multi-Drug Resistant Organisms: None Reported Past Surgical History: Joint Replacement, Orthopedic Surgery, Tubal Ligation Additional Past Surgical History / Comment(s): HX FALL WITH LEFT HIP FX SURGERY, HX FALL WITH RIGHT HIP SURGERY X2. Past Anesthesia/Blood Transfusion Reactions: No Reported Reaction Past Psychological History: No Psychological Hx Reported Smoking Status: Never smoker Past Alcohol Use History: None Reported Past Drug Use History: None Reported - Past Family History Mother Family Medical History: No Reported History Father Family Medical History: Asthma Additional Family Medical History / Comment(s): blood disorder- had too much blood . Sister(s) Family Medical History: Diabetes Mellitus Brother(s) Family Medical History: Cancer, Hypertension Son(s) Family Medical History: No Reported History Additional Family Medical History / Comment(s): pacemaker Daughter(s) Family Medical History: Coronary Artery Disease (CAD) Additional Family Medical History / Comment(s): 2 Daughters -Cardiac stents. General Exam Limitations: altered mental status General appearance: alert, in no apparent distress Head exam: Present: atraumatic, normocephalic, normal inspection Eye exam: Present: normal appearance, PERRL, EOMI. Absent: scleral icterus, conjunctival injection, periorbital swelling ENT exam: Present: normal exam, mucous membranes moist Neck exam: Present: normal inspection. Absent: tenderness, meningismus, lymphadenopathy Respiratory exam: Present: normal lung sounds bilaterally. Absent: respiratory distress, wheezes, rales, rhonchi, stridor Cardiovascular Exam: Present: regular rate, normal rhythm, normal heart sounds. Absent: systolic murmur, diastolic murmur, rubs, gallop, clicks GI/Abdominal exam: Present: soft, normal bowel sounds. Absent: distended, tenderness, guarding, rebound, rigid Extremities exam: Present: normal inspection, full ROM, normal capillary refill. Absent: tenderness, pedal edema, joint swelling, calf tenderness Back exam: Present: normal inspection Neurological exam: Present: alert, oriented X3, CN II-XII intact Psychiatric exam: Present: normal affect, normal mood Skin exam: Present: warm, dry, intact, normal color. Absent: rash Course Vital Signs 03/03/25 03/03/25 03/03/25 14:53 15:54 16:01 Temperature 97.4 F L Pulse Rate 96 92 97 Respiratory 20 18 18 Rate Blood Pressure 166/82 O2 Sat by Pulse Oximetry 03/03/25 03/03/25 03/03/25 18:00 19:23 20:10 Temperature Pulse Rate 84 79 102 H Respiratory 18 18 18 Rate Blood Pressure 175/85 152/78 148/79 O2 Sat by Pulse 94 L 94 L 95 Oximetry 03/03/25 23:00 Temperature Pulse Rate 101 H Respiratory 16 Rate Blood Pressure 154/71 O2 Sat by Pulse 94 L Oximetry - Reevaluation(s) Reevaluation #1: 03/03/25 16:14 Medical records reviewed Reevaluation #2: 03/03/25 16:45 Patient symptoms unchanged here in the ER patient has no complaints Reevaluation #3: 03/03/25 16:45 Informed of results questions answered Reevaluation #4: Was pt. sent in by a medical professional or institution (, PA, WIRE SETTER, urgent care, hospital, or residential...) When possible be specific @ -no Did you speak to anyone other than the patient for history (EMS, parent, family, police, friend...)? What history was obtained from this source @ -no Did you review nursing and triage notes (agree or disagree)? Why? @ -agree Are old charts reviewed (outside hosp., previous admission, EMS record, old EKG, old radiological studies, urgent care reports/EKG's, residential records)? Report findings @ -yes Differential Diagnosis (chest pain, altered mental status, abdominal pain women, abdominal pain men, vaginal bleeding, weakness, fever, dyspnea, syncope, headache, dizziness, GI bleed, back pain, seizure, CVA, palpatations, mental health, musculoskeletal)? @ -prior EKG interpreted by me (3pts min.). @ -yes X-rays interpreted by me (1pt min.). @ -yes positive for pneumonia CT interpreted by me (1pt min.). @ -no U/S interpreted by me (1pt. min.). @ -no What testing was considered but not performed or refused? (CT, X-rays, U/S, labs)? Why? @ -none What meds were considered but not given or refused? Why? @ -none Did you discuss the management of the patient with other professionals (professionals i.e. , PA, WIRE SETTER, lab, RT, psych nurse, oncology social worker, director of social services, teacher, policy officer, case management manager)? Give summary @ -no Was smoking cessation discussed for >3mins.? @ -no Was critical care preformed (if so, how long)? @ -yes31 Were there social determinants of health that impacted care today? How? (Homelessness, low income, unemployed, alcoholism, drug addiction, transportation, low edu. Level, literacy, decrease access to med. care, [facility], rehab)? @ -none Was there de-escalation of care discussed even if they declined (Discuss DNR or withdrawal of care, Hospice)? DNR status @ -no What co-morbidities impacted this encounter? (DM, HTN, Smoking, COPD, CAD, Cancer, CVA, ARF, Chemo, Hep., AIDS, mental health diagnosis, sleep apnea, morbid obesity)? @ -none Was patient admitted / discharged? Hospital course, mention meds given and route, prescriptions, significant lab abnormalities, going to OR and other pertinent info. @ - 84 female this female presents today for evaluation of fever shortness of breath weakness presents today for altered mental status but possibly baseline mental status with cough and congestion positive pneumonia suspect UTI increasing white blood cell count sent to her ER from outpatient facility for admission and IV antibiotic Admitted altered mental status, pneumonia, UTI Undiagnosed new problem with uncertain prognosis? @ -no Drug Therapy requiring intensive monitoring for toxicity (Heparin, Nitro, Insulin, Cardizem)? @ -no Were any procedures done? @ -no Diagnosis/symptom? @ - Acute, or Chronic, or Acute on Chronic? @ -Acute Uncomplicated (without systemic symptoms) or Complicated (systemic symptoms)? @ -Complicated Side effects of treatment? @ -no Exacerbation, Progression, or Severe Exacerbation? @ -exacerbation Poses a threat to life or bodily function? How? (Chest pain, USA, [place], pneumonia, PE, COPD, DKA, ARF, appy, cholecystitis, CVA, Diverticulitis, Homicidal, Suicidal, threat to staff... and all critical care pts) @ -yes extremes of age Reevaluation #5: Differential Dyspnea: Coronary syndrome, arrhythmia, tamponade, asthma, COPD, pulmonary embolism, pneumonia, pneumothorax, pulmonary effusion, anaphylaxis, diabetic ketoacidosis, flailed chest, pulmonary contusion, diaphragmatic rupture, anemia, neuromuscular, this is not meant to be an all-inclusive list. - Consultations Consultation #1: spoke emily FLORENCE who agrees to admit this patient Medical Decision Making - Medical Decision Making 84 female this female presents today for evaluation of fever shortness of breath weakness presents today for altered mental status but possibly baseline mental status with cough and congestion positive pneumonia suspect UTI increasing white blood cell count sent to her ER from outpatient facility for admission and IV antibiotic - Lab Data Result diagrams: 03/07/25 03:36 03/07/25 03:36 Lab Results 03/03/25 03/03/25 03/03/25 Range/Units 16:09 16:09 16:09 WBC 21.89 H (4.50-10.00) 10*3/uL RBC 3.21 L (4.10-5.20) 10*6/uL Hgb 9.3 L (12.0-15.0) g/dL Hct 28.1 L (37.2-46.3) % MCV 87.5 (80.0-97.0) fL MCH 29.0 (27.0-32.0) pg MCHC 33.1 (32.0-37.0) g/dL Plt Count 88 L D (140-440) 10*3/uL MPV 11.2 (9.5-12.2) fL Immature Gran % (Auto) 0.7 % Neutrophils % 90.2 % Lymphocytes % 4.0 % Monocytes % 4.9 % Eosinophils % 0.0 % Basophils % 0.2 % Immature Gran # 0.16 H (0.00-0.04) 10*3/uL Neutrophils # 19.74 H (1.80-7.70) 10*3/uL Lymphocytes # 0.87 L (0.90-5.00) 10*3/uL Monocytes # 1.08 H (0.20-1.00) 10*3/uL Eosinophils # 0.00 L (0.04-0.35) 10*3/uL Basophils # 0.04 (0.00-0.10) 10*3/uL Manual Slide Review Performed Large Platelets Present Immature Plt Fraction 5.1 (1.1-6.1) % Sodium 137 (137-145) mmol/L Potassium 3.2 L (3.5-5.1) mmol/L Chloride 106 (98-107) mmol/L Carbon Dioxide 25 (22-30) mmol/L Anion Gap 6 mmol/L BUN 23 H (7-17) mg/dL Creatinine 0.42 L (0.52-1.04) mg/dL Est GFR (CKD-EPI)AfAm >90 (>60 ml/min/1.73 sqM) Est GFR (CKD-EPI)NonAf >90 (>60 ml/min/1.73 sqM) Glucose 125 H (74-99) mg/dL Calcium 6.9 L (8.4-10.2) mg/dL Phosphorus 2.9 (2.5-4.5) mg/dL Magnesium 1.8 (1.6-2.3) mg/dL Total Bilirubin 0.6 (0.2-1.3) mg/dL AST 35 (14-36) U/L ALT 22 (4-34) U/L Alkaline Phosphatase 86 (38-126) U/L Total Protein 4.7 L (6.3-8.2) g/dL Albumin 2.2 L (3.5-5.0) g/dL Influenza Type A (PCR) Not Detected (Not Detectd) Influenza Type B (PCR) Not Detected (Not Detectd) RSV (PCR) Not Detected (Not Detectd) SARS-CoV-2 (PCR) Not Detected (Not Detectd) - Radiology Data Radiology results: report reviewed (X-rays negative for acute disease), image reviewed Critical Care Time Critical Care Time: Yes Total Critical Care Time: 31 Disposition Clinical Impression: Dyspnea, Acute exacerbation of chronic heart failure, Hyponatremia, Acute upper respiratory infection, UTI (urinary tract infection), Multifocal pneumonia Disposition: ADMITTED IP TO THIS HOSP Condition: Serious Is patient prescribed a controlled substance at d/c from ED?: No Time of Disposition: 16:30
[2025-03-03] MEDS: IPRATROPIUM-ALBUTEROL 3 ML NEB INHALATION STA (15:54)
--- NOTE | 2025-03-03 15:55 | XR ---
EXAMINATION TYPE: XR chest 2V DATE OF EXAM: 03/03/2025 3:47 PM COMPARISON: 02/21/2025 CLINICAL INDICATION: Female, 84 years old with history of cough, , TECHNIQUE: AP and lateral views FINDINGS: Heart appears mildly enlarged. Hyperinflation. Increased now moderate right pleural effusion. Ongoing trace left pleural effusion. Advanced degenerative change at both shoulders. IMPRESSION: 1. Mild cardiomegaly and possible underlying COPD. 2. Increased, now moderate right pleural effusion with prominent adjacent atelectasis and/or consolid ation. Ongoing trace left pleural effusion. [facility], Workstation: [facility], 03/03/2025 3:53 PM
[2025-03-03 16:18] LABS: Basophils # (A) 0.04 10*3/uL (0.00-0.10); Basophils % (A) 0.2 %; HCT 28.1 % (37.2-46.3); HGB 9.3 g/dL (12.0-15.0); Immature Platelet Fraction 5.1 % (1.1-6.1); Lymphocytes # (A) 0.87 10*3/uL (0.90-5.00); MCHC 33.1 g/dL (32.0-37.0); MCV 87.5 fL (80.0-97.0); Mean Platelet Volume 11.2 fL (9.5-12.2); Monocytes # (A) 1.08 10*3/uL (0.20-1.00); Monocytes % (A) 4.9 %; Neutrophils # (A) 19.74 10*3/uL (1.80-7.70); Neutrophils % (A) 90.2 %; RBC 3.21 10*6/uL (4.10-5.20); RDW 13.6 % (11.5-14.5); WBC 21.89 10*3/uL (4.50-10.00)
[2025-03-03] MEDS: SODIUM CHLORIDE 0.9% 500 ML 500 ML IV STA (16:21)
[2025-03-03 16:27] LABS: ALT 22 U/L (4-34); AST 35 U/L (14-36); African American GFR (CKD) >90 (>60 ml/min/1.73 sqM); Albumin 2.2 g/dL (3.5-5.0); Alkaline Phosphatase 86 U/L (38-126); Anion Gap 6 mmol/L; Blood Urea Nitrogen 23 mg/dL (7-17); Calcium 6.9 mg/dL (8.4-10.2); Carbon Dioxide 25 mmol/L (22-30); Chloride 106 mmol/L (98-107); Glucose 125 mg/dL (74-99); Magnesium 1.8 mg/dL (1.6-2.3); Non-African American GFR(CKD) >90 (>60 ml/min/1.73 sqM); Phosphorus 2.9 mg/dL (2.5-4.5); Potassium 3.2 mmol/L (3.5-5.1); Sodium 137 mmol/L (137-145); Total Bilirubin 0.6 mg/dL (0.2-1.3); Total Protein 4.7 g/dL (6.3-8.2)
[2025-03-03] MEDS ORDERED: PNEUMONIA PROTOCOL UTILIZED 1 EACH MISC PO PRN (16:42)
[2025-03-03 16:43] LABS: Large Platelets Present; Platelet Count 88 10*3/uL (140-440)
[2025-03-03 16:52] LABS: Influenza A Not Detected (Not Detectd); Influenza B Not Detected (Not Detectd); RSV Not Detected (Not Detectd)
--- NOTE | 2025-03-03 17:12 | CT ---
EXAMINATION TYPE: CT abdomen pelvis wo con CT DLP: 551 mGycm, Automated exposure control for dose reduction was used. DATE OF EXAM: 03/03/2025 4:59 PM COMPARISON: CT right hip 02/17/2025, CT pelvis 01/31/2024 CLINICAL INDICATION:Female, 84 years old with history of pain; gen. abdominal pain TECHNIQUE: Standard CT of the abdomen and pelvis without IV or oral contrast. Lack of IV or oral co ntrast limits evaluation of solid and hollow organ viscera. Coronal and sagittal reformats were perfo rmed. FINDINGS: LOWER CHEST: Small to moderate size right pleural effusion with adjacent groundglass and consolidativ e opacities. Small left pleural effusion with adjacent consolidation. Right middle lobe calcified gra nuloma. Regions of linear atelectasis within the right middle lobe. Cardiomegaly. Mitral annulus and aortic valvular calcifications. No pericardial effusion. ABDOMEN LIVER: Unremarkable noncontrast appearance. GALLBLADDER AND BILE DUCTS: Unremarkable noncontrast appearance. PANCREAS: Unremarkable noncontrast appearance. SPLEEN: Unremarkable noncontrast appearance. ADRENAL GLANDS: Unremarkable noncontrast appearance.. KIDNEYS AND URETERS: No evidence of hydronephrosis or renal calculus. Simple-appearing left mid kidne y exophytic cyst measuring up to 1.3 cm. No follow up recommended. PELVIS BLADDER: Nondistended with Garza catheter in place. REPRODUCTIVE: Unremarkable noncontrast appearance. ABDOMEN & PELVIS STOMACH AND BOWEL: Stomach and duodenum are unremarkable. Distal colonic diverticulosis without evide nce for acute diverticulitis. No focal bowel wall thickening or surrounding inflammatory changes. No evidence of bowel obstruction. PERITONEUM/RETROPERITONEUM: No evidence of pneumoperitoneum or free fluid. Presacral edema identified . VASCULATURE: Moderate atherosclerotic calcifications are present throughout the abdominal aorta and i ts branches. No evidence of aortic aneurysm. Pelvic phleboliths. MUSCULOSKELETAL: No acute osseous abnormalities. Degenerative changes of the bilateral SI joints. Dif fuse bone demineralization. Degenerative changes of the pubic symphysis. Postsurgical changes from in tramedullary ana and fixation screws involving the bilateral hips. Advanced osteoarthritic changes of the right hip with flattening of the femoral head. Remote-appearing multilevel superior endplate com pression deformities involving the L1, L2, L3 vertebral bodies with approximately 2 mm of retropulsio n at these levels. Approximately 20-40% height loss which is greatest at the L3 level. LYMPH NODES: No gross evidence for lymphadenopathy. SOFT TISSUE/ABDOMINAL WALL: Tiny bilateral fat filled inguinal hernias. IMPRESSION: 1. No acute intra-abdominal/pelvic process. 2. Small to moderate size right and small left pleural effusions with bilateral lower lobe patchy con solidation and groundglass opacities. Findings are most consistent with multifocal pneumonia. 3. Advanced osteoarthritic changes of the right hip with flattening of the femoral head. 4. Chronic-appearing superior endplate compression deformities of the L1, L2 and L3 vertebral bodies with approximately 2 mm retropulsion. Approximately 20-40% height loss. 5. Clonic diverticulosis without evidence for acute diverticulitis. [facility], , 03/03/2025 5:10 PM
[2025-03-03 17:57] LABS: Appearance,Urine Cloudy (Clear); Bacteria,Urine Rare /hpf; Bilirubin,Urine Negative (Negative); Blood,Urine Moderate (Negative); Color,Urine Yellow; Glucose,Urine (UA) Negative (Negative); Hyaline Casts,Urine 1 /lpf (0-2); Ketones,Urine Negative (Negative); Leukocyte Esterase,Urine Large (Negative); Mucus,Urine Moderate /hpf; Nitrite,Urine Negative (Negative); PH, Urine 5.5 (5.0-8.0); Protein,Urine 1+ (Negative); RBC,Urine 26 /hpf (0-5); Specific Gravity,Urine 1.023 (1.001-1.035); Squamous Epithelial Cell,Urine 13 /hpf (0-4); Urobilinogen,Urine <2.0 mg/dL (<2.0); WBC,Urine 41 /hpf (0-5)
[2025-03-03] MEDS: SODIUM CHLORIDE 0.9% 1,000 ML IV SCH (19:22)
[2025-03-03] MEDS: AZITHROMYCIN 500 MG in SODIUM CHLORIDE 0.9% 250 ML IVPB SCH (19:22)
[2025-03-04] MEDS ORDERED: ACETAMINOPHEN TAB 325 MG TAB PO PRN (01:07)
[2025-03-04] MEDS: HYDROcodone/APAP 5-325MG 1 EACH TAB PO PRN (01:27)
[2025-03-04] MEDS: ACETAMINOPHEN IV (For NPO) 1,000 MG in EMPTY BAG 1 BAG IVPB PRN (05:40)
[2025-03-04 08:36] LABS: BUN/Creat Ratio 42.17 Ratio (12.00-20.00); Blood Urea Nitrogen 25.3 mg/dL (9.0-27.0); Calcium 8.3 mg/dL (8.7-10.3); Carbon Dioxide 24.3 mmol/L (21.6-31.8); Chloride 99 mmol/L (96-109); Glucose 147 mg/dL (70-110); Sodium 138 mmol/L (135-145)
[2025-03-04 09:31] LABS: Basophils # (A) 0.03 X 10*3/uL (0.00-0.10); Basophils % (A) 0.1 %; Eosinophils # (A) 0 X 10*3/uL (0.04-0.35); Eosinophils % (A) 0 %; HCT 30.8 % (37.2-46.3); HGB 9.7 g/dL (12.0-15.0); Lymphocytes # (A) 0.82 X 10*3/uL (0.90-5.00); Lymphocytes % (A) 3.8 %; MCH 28.6 pg (27.0-32.0); MCHC 31.5 g/dL (32.0-37.0); MCV 90.9 FL (80.0-97.0); Mean Platelet Volume 12.3 FL (9.5-12.2); Monocytes # (A) 0.92 X 10*3/uL (0.20-1.00); Monocytes % (A) 4.3 %; NRBC Per 100 WBC 0 X 10*3/uL (0.00-0.01); Neutrophils # (A) 19.53 X 10*3/uL (1.80-7.70); Platelet Count 85 X 10*3/uL (140-440); RBC 3.39 X 10*6/uL (4.10-5.20); RDW 13.8 % (11.5-14.5); WBC 21.47 X 10*3/uL (4.50-10.00)
--- NOTE | 2025-03-04 11:25 | P.HPIM ---
History of Present Illness This is a pleasant 84 years old female with past medical history of multiple medical problemsAs below Patient presents because of failure to thrive increased confusion and weak cough, patient is kind of poor historian information was obtained from the patient records and the staff. Patient she does not know what she is doing here I told her in the hospital that she is in her for infection. However she complains from dyspnea and chest pain. Also she is making some brown phlegm as she explains. She denies recent fall. Patient feels little dizzy and she has weak cough She denies any GI/ symptom. No headache. No new weakness in upper or lower extremities as she explains Patient is afebrile, mildly tachycardic but blood pressure stable Labs show a leukocytosis of 21,000, hemoglobin 9.3, platelet count 88. CT of the abdomen and pelvis without contrast showing bilateral pleural effusion right more than left with bilateral patchy basilar opacities suspicious for multifocal pneumonia. Also patient has chronic compression deformity of L1, L2 and L3 Patient currently on ceftriaxone, Zithromax and normal saline 100 mL/h. Review of Systems Review of systems CONSTITUTIONAL: No fever, no malaise, no fatigue. HEENT: No recent visual problems or hearing problems. Denied any sore throat. CARDIOVASCULAR: No orthopnea, PND, no palpitations, no syncope. PULMONARY: No chest wall tenderness, no hemoptysis. GASTROINTESTINAL: No diarrhea, no nausea, no vomiting, no abdominal pain. Normoactive bowel sounds. NEUROLOGICAL: No headaches, no weakness, no numbness. HEMATOLOGICAL: Denies any bleeding or petechiae. GENITOURINARY: Denies any burning micturition, frequency, or urgency. MUSCULOSKELETAL/RHEUMATOLOGICAL: Denies any joint pain, swelling, or any muscle pain. ENDOCRINE: Denies any polyuria or polydipsia. Past Medical History Past Medical History: Coronary Artery Disease (CAD), Dementia, Hyperlipidemia, Hypertension, Osteoarthritis (OA) Additional Past Medical History / Comment(s): hx falls, states fx right hip with surgery x2 and needs a 3rd surgery., uses walker., back & shoulder pain., see cardiology h & P, hallucinations(shadows of a cat) History of Any Multi-Drug Resistant Organisms: None Reported, Unobtainable Past Surgical History: Joint Replacement, Orthopedic Surgery, Tubal Ligation Additional Past Surgical History / Comment(s): HX FALL WITH LEFT HIP FX SURGERY, HX FALL WITH RIGHT HIP SURGERY X2. Past Anesthesia/Blood Transfusion Reactions: No Reported Reaction, Unable to Obtain Past Psychological History: No Psychological Hx Reported, Unable to Obtain Smoking Status: Never smoker Past Alcohol Use History: None Reported, Unable to Obtain Past Drug Use History: None Reported, Unable to Obtain - Past Family History Mother Family Medical History: No Reported History Father Family Medical History: Asthma Additional Family Medical History / Comment(s): blood disorder- had too much blood . Sister(s) Family Medical History: Diabetes Mellitus Brother(s) Family Medical History: Cancer, Hypertension Son(s) Family Medical History: No Reported History Additional Family Medical History / Comment(s): pacemaker Daughter(s) Family Medical History: Coronary Artery Disease (CAD) Additional Family Medical History / Comment(s): 2 Daughters -Cardiac stents. Medications and Allergies Home Medications Medication Instructions Recorded Confirmed Type RX: Simvastatin [Zocor] 40 mg PO DAILY@1700 10/05/22 03/03/25 History RX: Levothyroxine Sodium 25 mcg PO DAILY@0800 01/31/24 03/03/25 History [Synthroid] RX: Vibegron [Gemtesa] 75 mg PO HS@2100 02/20/25 03/03/25 History RX: guaiFENesin SYRUP 100MG/5ML 200 mg PO Q4HR PRN ml 02/26/25 03/03/25 Rx [Robitussin] Acetaminophen [Tylenol] 650 mg PO Q4H PRN 03/03/25 03/03/25 History Ensure Enlive 237 ml PO TID@0800,1200,1700 03/03/25 03/03/25 History Magnesium Hydroxide [Milk of 7,200 mg PO Q48H PRN 03/03/25 03/03/25 History Magnesia Concentrate] Na Phos,M-B/Na Phos,Di-Ba [Fleet 133 ml RECTAL DAILY PRN 03/03/25 03/03/25 History Adult] RX: Furosemide [Lasix] 20 mg PO DAILY@1630 03/03/25 03/03/25 History RX: Furosemide [Lasix] 40 mg PO DAILY@0800 03/03/25 03/03/25 History RX: HYDROcodone/APAP 5-325MG 1 tab PO Q8H PRN 03/03/25 03/03/25 History [Herbster 5-325] RX: Magic Cup 1 dose PO W/SUPPER@1700 03/03/25 03/03/25 History RX: Metoprolol Succinate (ER) 25 mg PO BID@0800,1700 03/03/25 03/03/25 History [Toprol XL] RX: Sennosides [Senokot] 8.6 mg PO BID@0800,1700 03/03/25 03/03/25 History RX: Valsartan [Diovan] 80 mg PO BID@0800,1700 03/03/25 03/03/25 History bisacodyL [Dulcolax] 10 mg RECTAL DAILY PRN 03/03/25 03/03/25 History polyethylene glycoL 3350 [Miralax] 17 gm PO DAILY@0800 03/03/25 03/03/25 History Allergies Allergy/AdvReac Type Severity Reaction Status Date / Time No Known Allergies Allergy Verified 03/03/25 16:19 Physical Exam Vitals: Vital Signs Temp Pulse Pulse Resp BP BP Pulse Ox 03/04/25 07:59 98.3 F 96 16 151/77 95 03/04/25 07:42 94 L 03/04/25 05:30 103 H 163/80 03/04/25 03:20 102 H 163/77 03/04/25 00:17 97.7 F 103 H 15 175/70 98 03/03/25 23:00 101 H 16 154/71 94 L 03/03/25 20:10 102 H 18 148/79 95 03/03/25 19:23 79 18 152/78 94 L 03/03/25 18:00 84 18 175/85 94 L 03/03/25 16:01 97 18 03/03/25 15:54 92 18 03/03/25 14:53 97.4 F L 96 20 166/82 Intake and Output 03/03/25 03/04/25 03/04/25 22:59 06:59 14:59 Output Total 300 Balance -300 Output: Urine 300 Other: Voiding Method Indwelling Catheter Weight 63.503 kg -GENERAL: The patient is alert and oriented x0, not in any acute distress. Well developed, well nourished. Generally weak HEENT: Pupils are round and equally reacting to light. EOMI. No scleral icterus. No conjunctival pallor. Normocephalic, atraumatic. No pharyngeal erythema. No thyromegaly. CARDIOVASCULAR: S1 and S2 present. No murmurs, rubs, or gallops. -PULMONARY: Bilateral decreased air entry on bases With crepitation, no wheezing , no crackles. ABDOMEN: Soft, nontender, nondistended, normoactive bowel sounds. No palpable organomegaly. MUSCULOSKELETAL: No joint swelling or deformity. EXTREMITIES: No cyanosis, clubbing, or pedal edema. NEUROLOGICAL: Gross neurological examination did not reveal any focal deficits. SKIN: No rashes. no petechiae. Results CBC & Chem 7: 03/04/25 02:53 03/04/25 02:53 Labs: Abnormal Lab Results - Last 24 Hours (Table) 03/03/25 03/03/25 03/03/25 Range/Units 16:09 16:09 17:45 WBC 21.89 H (4.50-10.00) 10*3/uL RBC 3.21 L (4.10-5.20) 10*6/uL Hgb 9.3 L (12.0-15.0) g/dL Hct 28.1 L (37.2-46.3) % MCHC (32.0-37.0) g/dL Plt Count 88 L D (140-440) 10*3/uL MPV (9.5-12.2) FL Immature Gran # 0.16 H (0.00-0.04) 10*3/uL Neutrophils # 19.74 H (1.80-7.70) 10*3/uL Lymphocytes # 0.87 L (0.90-5.00) 10*3/uL Monocytes # 1.08 H (0.20-1.00) 10*3/uL Eosinophils # 0.00 L (0.04-0.35) 10*3/uL Potassium 3.2 L (3.5-5.1) mmol/L Anion Gap (4.00-12.00) mmol/L BUN 23 H (7-17) mg/dL Creatinine 0.42 L (0.52-1.04) mg/dL BUN/Creatinine Ratio (12.00-20.00) Ratio Glucose 125 H (74-99) mg/dL Calcium 6.9 L (8.4-10.2) mg/dL Total Protein 4.7 L (6.3-8.2) g/dL Albumin 2.2 L (3.5-5.0) g/dL Urine Appearance Cloudy H (Clear) Urine Protein 1+ H (Negative) Urine Blood Moderate H (Negative) Ur Leukocyte Esterase Large H (Negative) Urine RBC 26 H (0-5) /hpf Urine WBC 41 H (0-5) /hpf Ur Squamous Epith Cells 13 H (0-4) /hpf Urine Bacteria Rare H (None) /hpf Urine Mucus Moderate H (None) /hpf 03/04/25 03/04/25 Range/Units 02:53 02:53 WBC 21.47 H (4.50-10.00) 10*3/uL RBC 3.39 L (4.10-5.20) 10*6/uL Hgb 9.7 L (12.0-15.0) g/dL Hct 30.8 L (37.2-46.3) % MCHC 31.5 L (32.0-37.0) g/dL Plt Count 85 L (140-440) 10*3/uL MPV 12.3 H (9.5-12.2) FL Immature Gran # 0.17 H (0.00-0.04) 10*3/uL Neutrophils # 19.53 H (1.80-7.70) 10*3/uL Lymphocytes # 0.82 L (0.90-5.00) 10*3/uL Monocytes # (0.20-1.00) 10*3/uL Eosinophils # 0 L (0.04-0.35) 10*3/uL Potassium (3.5-5.1) mmol/L Anion Gap 14.70 H (4.00-12.00) mmol/L BUN (7-17) mg/dL Creatinine (0.52-1.04) mg/dL BUN/Creatinine Ratio 42.17 H (12.00-20.00) Ratio Glucose 147 H (74-99) mg/dL Calcium 8.3 L (8.4-10.2) mg/dL Total Protein (6.3-8.2) g/dL Albumin (3.5-5.0) g/dL Urine Appearance (Clear) Urine Protein (Negative) Urine Blood (Negative) Ur Leukocyte Esterase (Negative) Urine RBC (0-5) /hpf Urine WBC (0-5) /hpf Ur Squamous Epith Cells (0-4) /hpf Urine Bacteria (None) /hpf Urine Mucus (None) /hpf Thrombosis Risk Factor Assmnt - Choose All That Apply Any of the Below Risk Factors Present?: No Other Risk Factors: Yes Each Risk Factor Represents 3 Points: Age 75 years or older Other congenital or acquired thrombophilia - If yes, enter type in comment: No Thrombosis Risk Factor Assessment Total Risk Factor Score: 3 Thrombosis Risk Factor Assessment Level: Moderate Risk Assessment and Plan Assessment: Suspected bilateral multifocal pneumonia/pneumonitis involving mainly patchy basilar opacities suspicious for aspiration pneumonanitis Acute urinary tract infection chronic compression deformity of L1, L2 and L3, seen on the CAT scan Coronary artery disease Dementia Diabetes mellitus Hypertension Hyperlipidemia History of osteoarthritis Hypothyroidism History of fall and hip surgery using a walker Plan: Continue with antibiotic Follow-up sputum culture blood culture Patient onIV fluid 100 mL/h, will lowered and changed to D5 normal saline @ 50 mL/h procalcitonin check Monitor labs and vitals Swallow evaluation checked and patient failed the swallow test nutrition consult requested Labs and medication were reviewed.. Continue same treatment. Continue with symptomatic treatment. Resume home medication. Monitor lytes and vitals. DVT and GI prophylaxis. Further recommendations depends on the clinical course of the patient DVT prophylaxis: Subcutaneous heparin GI Prophylaxis: Pepcid PT/OT: Pending Prognosis is guarded
[2025-03-04] MEDS: DEXTROSE 5%-0.9% NACL 1,000 ML IV SCH (11:58)
--- NOTE | 2025-03-04 12:55 | XR ---
EXAMINATION TYPE: XR chest 2V DATE OF EXAM: 03/04/2025 12:50 PM COMPARISON: 03/03/2025 CLINICAL INDICATION: Female, 84 years old with history of pneumonia: Shortness of breath TECHNIQUE: XR chest 2V views of the chest are obtained. FINDINGS: Scattered senescent parenchymal changes noted. Hyperinflation compatible with COPD. Increasing right lower lobe infiltrate with pleural effusion. Mild patchy density left medial lung ba se. Correlate for pneumonia and appropriate follow-up advised. Heart size is stable. Mediastinal structures are stable and grossly unremarkable. No evidence for hilar prominence. Degenerative changes dorsal spine. IMPRESSION: 1. Increasing right lower lobe infiltrate with pleural effusion. Mild patchy density left medial lung base. Correlate for pneumonia and appropriate follow-up advised. [facility], , 03/04/2025 12:53 PM
[2025-03-04 14:35] VITALS: BMI 22.6
[2025-03-04] MEDS: AZITHROMYCIN 500 MG in SODIUM CHLORIDE 0.9% 250 ML IVPB SCH (15:52)
[2025-03-04] MEDS ORDERED: cefTRIAXone 2 GM in DEXTROSE 5% IN WATER 50 ML IVPB SCH (17:00)
[2025-03-04] MEDS: cefTRIAXone 2 GM in DEXTROSE 5% IN WATER 50 ML IVPB SCH (17:07)
[2025-03-04] MEDS ORDERED: guaiFENesin SYRUP 100MG/5ML 200 MG/10 ML CUP PO PRN (19:43)
[2025-03-04] MEDS ORDERED: HYDROcodone/APAP 5-325MG 1 EACH TAB PO PRN (19:43)
[2025-03-04] MEDS: NON FORMULARY DRUG (Vibegron [Gemtesa] 75 MG Tablet) PO SCH (20:52)
[2025-03-04] MEDS: METOPROLOL SUCCINATE (ER) 25 MG TAB.ER.24H PO SCH (20:56)
[2025-03-04] MEDS: VALSARTAN 80 MG TAB PO SCH (20:56)
[2025-03-04] MEDS: METOPROLOL TARTRATE 25 MG TAB PO SCH (21:31)
[2025-03-05 05:46] LABS: African American GFR (CKD) >90 (>60 ml/min/1.73 sqM); Anion Gap 7 mmol/L; Blood Urea Nitrogen 27 mg/dL (7-17); Calcium 8.5 mg/dL (8.4-10.2); Carbon Dioxide 26 mmol/L (22-30); Chloride 106 mmol/L (98-107); Glucose 142 mg/dL (74-99); Non-African American GFR(CKD) 89 (>60 ml/min/1.73 sqM); Potassium 3.8 mmol/L (3.5-5.1); Sodium 139 mmol/L (137-145)
[2025-03-05] MEDS: IPRATROPIUM-ALBUTEROL 3 ML NEB INHALATION PRN (05:50)
[2025-03-05] MEDS ORDERED: LORazepam 1 MG/0.5 ML VIAL IV PRN (06:24)
[2025-03-05] MEDS: ACETAMINOPHEN IV (For NPO) 1,000 MG in EMPTY BAG 1 BAG IVPB ONE (06:36)
[2025-03-05] MEDS ORDERED: METOPROLOL TARTRATE 25 MG TAB PO SCH (08:00)
[2025-03-05] MEDS: SENNOSIDES 8.6 MG TAB PO SCH (08:43)
[2025-03-05] MEDS: LEVOTHYROXINE 25 MCG TAB PO SCH (08:43)
[2025-03-05] MEDS: polyethylene glycoL 3350 17 GM POWD.PACK PO SCH (08:50)
[2025-03-05 10:23] LABS: Basophils # (A) 0.02 X 10*3/uL (0.00-0.10); Basophils % (A) 0.1 %; Eosinophils # (A) 0.02 X 10*3/uL (0.04-0.35); Eosinophils % (A) 0.1 %; HCT 29.5 % (37.2-46.3); HGB 9.2 g/dL (12.0-15.0); Immature Platelet Fraction 13.5 % (1.1-6.1); Lymphocytes # (A) 0.89 X 10*3/uL (0.90-5.00); Lymphocytes % (A) 4.3 %; MCH 28.4 pg (27.0-32.0); MCHC 31.2 g/dL (32.0-37.0); Mean Platelet Volume 12.2 FL (9.5-12.2); Monocytes # (A) 0.95 X 10*3/uL (0.20-1.00); Monocytes % (A) 4.6 %; NRBC Per 100 WBC 0 X 10*3/uL (0.00-0.01); Neutrophils # (A) 18.76 X 10*3/uL (1.80-7.70); Neutrophils % (A) 90.2 %; Platelet Count 54 X 10*3/uL (140-440); RBC 3.24 X 10*6/uL (4.10-5.20); RBC Morphology Normal (Normal); RDW 13.8 % (11.5-14.5); WBC 20.78 X 10*3/uL (4.50-10.00)
--- NOTE | 2025-03-05 16:12 | P.PN ---
Subjective This is a pleasant 84 years old female with past medical history of multiple medical problemsAs below Patient presents because of failure to thrive increased confusion and weak cough, patient is kind of poor historian information was obtained from the patient records and the staff. Patient she does not know what she is doing here I told her in the hospital that she is in her for infection. However she complains from dyspnea and chest pain. Also she is making some brown phlegm as she explains. She denies recent fall. Patient feels little dizzy and she has weak cough She denies any GI/ symptom. No headache. No new weakness in upper or lower extremities as she explains Patient is afebrile, mildly tachycardic but blood pressure stable Labs show a leukocytosis of 21,000, hemoglobin 9.3, platelet count 88. CT of the abdomen and pelvis without contrast showing bilateral pleural effusion right more than left with bilateral patchy basilar opacities suspicious for multifocal pneumonia. Also patient has chronic compression deformity of L1, L2 and L3 Patient currently on ceftriaxone, Zithromax and normal saline 100 mL/h. 03/05 Patient is not doing well, she still confused and more obtunded She cannot tolerate diet She is mildly tachypneic and oxygen saturation is okay. Repeat chest x-ray yesterday showing worsening infiltrate on especially the right side. She is currently on ceftriaxone and Zithromax without to change her antibiotic to Zosyn as there is risk of aspiration pneumonia. CT of the abdomen pelvis was reviewed no specific intra-abdominal process. She also she has low urine output and a bolus of 500 cc was given and increase his D5 normal saline 50 up to 100 mL/h. I discussed the case with her caregiver Kathrine she told me she no one who makes decision for her in the state and explained she has a history of dementia, she is agreeable with the current management. She agrees for the patient to be no code which is requested Active Medications Generic Name Dose Route Start Last Admin Trade Name Freq PRN Reason Stop Dose Admin Acetaminophen 650 mg 03/04/25 01:07 Acetaminophen Tab 325 Mg Tab PO Q6HR PRN Fever and/ or Mild Pain Hydrocodone Bitart/Acetaminophen 1 each 03/04/25 01:06 03/04/25 21:42 Hydrocodone/Apap 5-325mg 1 Each Tab PO 1 each Q8HR PRN Administration Moderate to Severe Pain (4-10) Albuterol/Ipratropium 3 ml 03/03/25 16:42 03/05/25 05:50 Ipratropium-Albuterol 3 Ml Neb INHALATION 3 ml RT-Q4H PRN Administration shortness of breath Atorvastatin Calcium 20 mg 03/05/25 17:00 Atorvastatin 20 Mg Tab PO DAILY@1700 [facility] Guaifenesin 200 mg 03/04/25 19:43 Guaifenesin Syrup 100mg/5ml 200 Mg/10 Ml Cup PO Q4HR PRN Cough Azithromycin 500 mg/ Sodium 250 mls @ 250 mls/hr 03/04/25 16:00 03/05/25 15:25 Chloride IVPB 03/05/25 16:59 250 mls/hr DAILY@1600 [facility] Administration Protocol Dextrose/Sodium Chloride 1,000 mls @ 100 mls/hr 03/04/25 11:30 03/05/25 08:43 Dextrose 5%-Ns Iv Soln IV 50 mls/hr .Q10H RENE Administration Piperacillin Sod/Tazobactam 100 mls @ 25 mls/hr 03/05/25 16:00 Sod 3.375 gm/ Sodium Chloride IVPB Q8HR [facility] Protocol Levothyroxine Sodium 25 mcg 03/05/25 08:00 03/05/25 08:43 Levothyroxine 25 Mcg Tab PO 25 mcg DAILY@0800 [facility] Administration Lorazepam 1 mg 03/05/25 06:24 Lorazepam 1 Mg/0.5 Ml Vial IV ONCE PRN Anxiety Metoprolol Tartrate 25 mg 03/04/25 22:20 03/05/25 08:43 Metoprolol Tartrate 25 Mg Tab PO 25 mg 0800,1700 [facility] Administration Miscellaneous Information 1 each 03/03/25 16:42 Pneumonia Protocol Utilized 1 Each Misc PO ONCE PRN Per Protocol Non-Formulary Medication 75 mg 03/04/25 21:00 03/04/25 20:52 Vibegron [Gemtesa] PO Not Given HS@2100 [facility] Polyethylene Glycol 17 gm 03/05/25 08:00 03/05/25 08:50 Polyethylene Glycol 3350 17 Gm Powd.Pack PO Not Given DAILY@0800 [facility] Senna 8.6 mg 03/05/25 08:00 03/05/25 08:43 Sennosides 8.6 Mg Tab PO 8.6 mg BID@0800,1700 RENE Administration Valsartan 80 mg 03/04/25 20:00 03/05/25 08:43 Valsartan 80 Mg Tab PO 80 mg BID@0800,1700 RENE Administration Objective - Vital Signs Vital signs: Vital Signs Temp 97.9 F 03/05/25 13:29 Pulse 89 03/05/25 13:29 Resp 17 03/05/25 13:29 BP 148/75 03/05/25 13:29 Pulse Ox 98 03/05/25 13:29 FiO2 Intake & Output 03/04/25 03/05/25 03/05/25 18:59 06:59 18:59 Intake Total 650 Output Total 200 100 Balance -200 550 Weight 63.503 kg Intake: Intake, IV Titration 600 Amount Dextrose 5%-0.9% NaCl 1, 600 000 ml @ 50 mls/hr IV . Q20H RENE Rx#:[id number] Oral 50 Output: Urine 200 100 Other: Voiding Method Indwelling Catheter - Exam -GENERAL: The patient is alert confused, cannot provide information, does not respond HEENT: Pupils are round and equally reacting to light. EOMI. No scleral icterus. No conjunctival pallor. Normocephalic, atraumatic. No pharyngeal erythema. No thyromegaly. CARDIOVASCULAR: S1 and S2 present. No murmurs, rubs, or gallops. -PULMONARY: Chest is clear to auscultation, no wheezing , no crackles. Bi lateral crepitation with tachypnea, mild tachypnea ABDOMEN: Soft, nontender, nondistended, normoactive bowel sounds. No palpable organomegaly. MUSCULOSKELETAL: No joint swelling or deformity. EXTREMITIES: No cyanosis, clubbing, or pedal edema. NEUROLOGICAL: Gross neurological examination did not reveal any focal deficits. SKIN: No rashes. no petechiae. - Labs CBC & Chem 7: 03/05/25 04:22 03/05/25 04:22 Labs: Abnormal Lab Results - Last 24 Hours (Table) 03/05/25 03/05/25 Range/Units 04:22 04:22 WBC 20.78 H (4.50-10.00) X 10*3/uL RBC 3.24 L (4.10-5.20) X 10*6/uL Hgb 9.2 L (12.0-15.0) g/dL Hct 29.5 L (37.2-46.3) % MCHC 31.2 L (32.0-37.0) g/dL Plt Count 54 L (140-440) X 10*3/uL Immature Gran # 0.14 H (0.00-0.04) X 10*3/uL Neutrophils # 18.76 H (1.80-7.70) X 10*3/uL Lymphocytes # 0.89 L (0.90-5.00) X 10*3/uL Eosinophils # 0.02 L (0.04-0.35) X 10*3/uL Immature Plt Fraction 13.5 H (1.1-6.1) % BUN 27 H (7-17) mg/dL Creatinine 0.48 L (0.52-1.04) mg/dL Glucose 142 H (74-99) mg/dL Microbiology - Last 24 Hours (Table) 03/04/25 12:43 Urine Culture - Final Urine,Catheterized 03/03/25 16:48 Blood Culture - Preliminary Blood Assessment and Plan Assessment: Suspected bilateral multifocal pneumonia/pneumonitis involving mainly patchy basilar opacities suspicious for aspiration pneumonanitis Acute urinary tract infection chronic compression deformity of L1, L2 and L3, seen on the CAT scan Coronary artery disease Dementia Diabetes mellitus Hypertension Hyperlipidemia History of osteoarthritis Hypothyroidism History of fall and hip surgery using a walker Plan: Continue with antibiotic, change ceftriaxone to Zosyn continue with Zithromax Follow-up sputum culture blood culture Patient continue with D5 normal saline @ 100 mL/h procalcitonin check Monitor labs and vitals Swallow evaluation checked and patient failed the swallow test nutrition consult requested Labs and medication were reviewed.. Continue same treatment. Continue with symptomatic treatment. Resume home medication. Monitor lytes and vitals. DVT and GI prophylaxis. Further recommendations depends on the clinical course of the patient DVT prophylaxis: Subcutaneous heparin GI Prophylaxis: Pepcid PT/OT: Pending Prognosis is guarded No code
[2025-03-05] MEDS: SODIUM CHLORIDE 0.9% 500 ML 500 ML IV ONE (16:26)
[2025-03-05] MEDS: PIPERACILLIN-TAZOBACTAM 3.375 GM in SODIUM CHLORIDE 0.9% 100 ML IVPB SCH (17:03)
[2025-03-05] MEDS: ATORVASTATIN 20 MG TAB PO SCH (17:47)
[2025-03-06 10:58] LABS: Basophils # (A) 0.02 X 10*3/uL (0.00-0.10); Basophils % (A) 0.1 %; Eosinophils # (A) 0 X 10*3/uL (0.04-0.35); Eosinophils % (A) 0 %; HCT 30.1 % (37.2-46.3); Immature Platelet Fraction 18.1 % (1.1-6.1); Lymphocytes # (A) 0.87 X 10*3/uL (0.90-5.00); Lymphocytes % (A) 4.2 %; MCH 27.8 pg (27.0-32.0); MCHC 29.9 g/dL (32.0-37.0); MCV 92.9 FL (80.0-97.0); Mean Platelet Volume 13.8 FL (9.5-12.2); Monocytes # (A) 0.95 X 10*3/uL (0.20-1.00); Monocytes % (A) 4.6 %; NRBC Per 100 WBC 0.03 X 10*3/uL (0.00-0.01); Neutrophils # (A) 18.59 X 10*3/uL (1.80-7.70); Neutrophils % (A) 90.5 %; Platelet Count 31 X 10*3/uL (140-440); RBC 3.24 X 10*6/uL (4.10-5.20); RDW 14.3 % (11.5-14.5); WBC 20.56 X 10*3/uL (4.50-10.00)
[2025-03-06 11:01] LABS: BUN/Creat Ratio 43.38 Ratio (12.00-20.00); Blood Urea Nitrogen 34.7 mg/dL (9.0-27.0); Carbon Dioxide 22.9 mmol/L (21.6-31.8); Chloride 108 mmol/L (96-109); Glucose 117 mg/dL (70-110); Sodium 144 mmol/L (135-145)
--- NOTE | 2025-03-06 11:07 | CDI ---
Date: 03/06/2025 From: Sharyn [email or web address] Email: [email or web address] Admit Date: 03/03/2025 05:13:00 PM Patient Name: Carmen Ash Visit Number: [id number] Discharge Date: N/A ATTENTION: The Clinical Documentation Specialists (CDI) and [facility] Coding Staff appreciate your assistance in clarifying documentation. Please respond to the clarification below the line at the bottom and electronically sign. The CDI & [facility] Coding staff will review the response and follow-up if needed. Please note: Queries are made part of the Legal Health Record. If you have any questions, please contact the author of this message via ITS. Dr. Chris Acharya, The Registered Dietitian assessment on 03/04/2025 indicates this patient meets criteria for malnutrition, chronic, severe. Based on this information and the findings below, is there an additional diagnosis that is clinically appropriate for this patient? History/Risk Factors: 84-year-old female presented to [facility] ED for evaluation due to cough/ congestion, shortness of breath, and altered mental status. PMH: Dementia, type 2 diabetes mellitus, osteoarthritis, hypothyroidism, coronary artery disease, hyperlipidemia, hypertension Clinical Indicators: Documentation Location: Electronic Medical Record Current BMI: 21.3 Registered Dietitian Assessment (03/04/2025): o Malnutrition, chronic, severe o Related to decreased ability to consume sufficient energy o As evidenced by AMS, severe muscle losses, severe subcutaneous fat losses o Muscle and fat losses noted: temporal, buccal, orbital, trapezius, deltoid, interosseous o Nutrition Intake: Poor. Percent Consumed: 0-25%. Nutrition Concerns: Difficulty Chewing. Appetite: Poor Internal Medicine Progress Note (03/05/2025): o Patient presents because of failure to thrive, confusion, and weak cough o She cannot tolerate diet o Patient is not doing well, she still confused and more obtunded o patchy basilar opacities suspicious for aspiration pneumonitis Treatment: Registered Dietitian Consultation Oral Nutrition Supplement(s): Magic Cup BID Dysphagia Level 1: Pureed Diet Encouraged Oral Intake During 1:1 Supervision Is there an additional diagnosis that is clinically appropriate for this patient? [ x ] Severe protein-calorie malnutrition [ ] No additional diagnosis/Not clinically significant [ ] Other condition, please specify [ ] Unable to Determine MTDD
[2025-03-06] MEDS: DEXTROSE 5%-0.45% NACL 1,000 ML IV SCH (11:29)
[2025-03-06] MEDS: FUROSEMIDE 10 MG/ML 4 ML VIAL IV STA (11:29)
--- NOTE | 2025-03-06 12:01 | CDI ---
Date: 03/06/2025 From: Sharyn [email or web address] Email: [email or web address] Admit Date: 03/03/2025 05:13:00 PM Patient Name: Carmen Ash Visit Number: [id number] Discharge Date: N/A ATTENTION: The Clinical Documentation Specialists (CDI) and [facility] Coding Staff appreciate your assistance in clarifying documentation. Please respond to the clarification below the line at the bottom and electronically sign. The CDI & [facility] Coding staff will review the response and follow-up if needed. Please note: Queries are made part of the Legal Health Record. If you have any questions, please contact the author of this message via ITS. Dr. Chris Acharya, Altered mental status is documented in the ED Report 03/03/2025. Clarification regarding the etiology/cause of this symptom is requested. History/Risk Factors: 84-year-old female presented to [facility] ED for evaluation due to cough/ congestion, shortness of breath, and altered mental status. PMH: Dementia, type 2 diabetes mellitus, osteoarthritis, hypothyroidism, coronary artery disease, hyperlipidemia, hypertension Clinical Indicators: Documentation Location: Electronic Medical Record ED Report (03/03/2025): o Limitations: altered mental status o Present: alert, oriented x 3 o presents today for altered mental status but possibly baseline mental status o patient has severedementia H&P Report (03/04/2025): o Increased confusion o Poor historian o she does not know what she is doing here o The patient is alert and oriented x 0 o Suspected bilateral multifocal pneumonia/pneumonitisAcute urinary tract infection o Dementia Internal Medicine Progress Note (03/05/2025): o Patient is not doing well, she still confused and more obtunded o The patient is alert confused, cannot provide information, does not respond Treatment: Neurological Assessments per Nursing Unit Protocol Ativan 1mg IVP as Needed (Ordered on 03/05/2025 No Administration Record at this Time) Please clarify the etiology of the symptom of altered mental status: [ x ] Acute metabolic encephalopathy superimposed on severe dementia [ ] Severe dementia without change to baseline mental status [ ] Other condition (please specify) [ ] Unable to determine MTDD
[2025-03-06] MEDS: ACETAMINOPHEN IV (For NPO) 1,000 MG in EMPTY BAG 1 BAG IVPB PRN (19:49)
--- NOTE | 2025-03-06 23:02 | P.PN ---
Subjective This is a pleasant 84 years old female with past medical history of multiple medical problemsAs below Patient presents because of failure to thrive increased confusion and weak cough, patient is kind of poor historian information was obtained from the patient records and the staff. Patient she does not know what she is doing here I told her in the hospital that she is in her for infection. However she complains from dyspnea and chest pain. Also she is making some brown phlegm as she explains. She denies recent fall. Patient feels little dizzy and she has weak cough She denies any GI/ symptom. No headache. No new weakness in upper or lower extremities as she explains Patient is afebrile, mildly tachycardic but blood pressure stable Labs show a leukocytosis of 21,000, hemoglobin 9.3, platelet count 88. CT of the abdomen and pelvis without contrast showing bilateral pleural effusion right more than left with bilateral patchy basilar opacities suspicious for multifocal pneumonia. Also patient has chronic compression deformity of L1, L2 and L3 Patient currently on ceftriaxone, Zithromax and normal saline 100 mL/h. 03/05 Patient is not doing well, she still confused and more obtunded She cannot tolerate diet She is mildly tachypneic and oxygen saturation is okay. Repeat chest x-ray yesterday showing worsening infiltrate on especially the right side. She is currently on ceftriaxone and Zithromax without to change her antibiotic to Zosyn as there is risk of aspiration pneumonia. CT of the abdomen pelvis was reviewed no specific intra-abdominal process. She also she has low urine output and a bolus of 500 cc was given and increase his D5 normal saline 50 up to 100 mL/h. I discussed the case with her caregiver Kathrine she told me she no one who makes decision for her in the state and explained she has a history of dementia, she is agreeable with the current management. She agrees for the patient to be no code which is requested 03/06 Patient was updated this morning She was very tachypneic. Breathing with gurgly sounds and coarse crepitation She was getting 1 normal saline at 100 mL/h Fluids was switched to D5 half-normal saline at 50 One-time dose of IV Lasix 40 mg daily with. Antibiotics were switched to Zosyn with close monitoring for now. Objective - Vital Signs Vital signs: Vital Signs Temp 97.6 F 03/06/25 07:14 Pulse 88 03/06/25 07:14 Resp 28 H 03/06/25 07:14 BP 145/78 03/06/25 07:14 Pulse Ox 89 L 03/06/25 07:14 FiO2 Intake & Output 03/05/25 03/06/25 03/06/25 18:59 06:59 18:59 Output Total 200 75 Balance -200 -75 Weight 60 kg Output: Urine 200 75 Other: Voiding Method Indwelling Catheter Indwelling Catheter - Labs CBC & Chem 7: 03/06/25 03:26 03/06/25 03:26 Labs: Abnormal Lab Results - Last 24 Hours (Table) 03/06/25 03/06/25 Range/Units 03:26 03:26 WBC 20.56 H (4.50-10.00) X 10*3/uL RBC 3.24 L (4.10-5.20) X 10*6/uL Hgb 9.0 L (12.0-15.0) g/dL Hct 30.1 L (37.2-46.3) % MCHC 29.9 L (32.0-37.0) g/dL Plt Count 31 A* (140-440) X 10*3/uL MPV 13.8 H (9.5-12.2) FL Immature Gran # 0.13 H (0.00-0.04) X 10*3/uL Neutrophils # 18.59 H (1.80-7.70) X 10*3/uL Lymphocytes # 0.87 L (0.90-5.00) X 10*3/uL Eosinophils # 0 L (0.04-0.35) X 10*3/uL NRBC/100 WBC Diff 0.03 H (0.00-0.01) X 10*3/uL Immature Plt Fraction 18.1 H (1.1-6.1) % Anion Gap 13.10 H (4.00-12.00) mmol/L BUN 34.7 H (9.0-27.0) mg/dL BUN/Creatinine Ratio 43.38 H (12.00-20.00) Ratio Glucose 117 H (70-110) mg/dL Calcium 8.0 L (8.7-10.3) mg/dL Microbiology - Last 24 Hours (Table) 03/03/25 16:48 Blood Culture - Preliminary Blood 03/04/25 12:43 Urine Culture - Final Urine,Catheterized Assessment and Plan Assessment: Suspected bilateral multifocal pneumonia/pneumonitis involving mainly patchy basilar opacities suspicious for aspiration pneumonanitis Acute urinary tract infection chronic compression deformity of L1, L2 and L3, seen on the CAT scan Coronary artery disease Dementia Diabetes mellitus Hypertension Hyperlipidemia History of osteoarthritis Hypothyroidism History of fall and hip surgery using a walker Plan: Continue with antibiotic, change ceftriaxone to Zosyn continue with Zithromax Follow-up sputum culture blood culture Patient continue with IV fluid procalcitonin check Monitor labs and vitals Swallow evaluation checked and patient failed the swallow test nutrition consult requested Labs and medication were reviewed.. Continue same treatment. Continue with symptomatic treatment. Resume home medication. Monitor lytes and vitals. DVT and GI prophylaxis. Further recommendations depends on the clinical course of the patient DVT prophylaxis: Subcutaneous heparin GI Prophylaxis: Pepcid PT/OT: Pending Prognosis is guarded No code
[2025-03-07 07:11] VITALS: RESP 15
[2025-03-07 07:13] VITALS: BP 117/72; PULSE 76; TEMP 98.1
[2025-03-07] MEDS ORDERED: ACETAMINOPHEN IV (For NPO) 1,000 MG in EMPTY BAG 1 BAG IVPB PRN (07:34)
[2025-03-07 10:22] LABS: Blood Urea Nitrogen 39.8 mg/dL (9.0-27.0); Calcium 7.8 mg/dL (8.7-10.3); Carbon Dioxide 23.3 mmol/L (21.6-31.8); Chloride 110 mmol/L (96-109); Glucose 89 mg/dL (70-110); Potassium 3.2 mmol/L (3.5-5.5); Sodium 145 mmol/L (135-145)
[2025-03-07] MEDS ORDERED: Potassium Replacement Protocol 1 EACH MISC MISCELLANE PRN (11:05)
[2025-03-07 11:06] LABS: Acanthocytes 2+ (None Seen); Basophils # (A) 0.04 X 10*3/uL (0.00-0.10); Basophils % (A) 0.2 %; Eosinophils # (A) 0.01 X 10*3/uL (0.04-0.35); Eosinophils % (A) 0 %; HCT 26.3 % (37.2-46.3); Immature Platelet Fraction 20.8 % (1.1-6.1); Lymphocytes # (A) 1.25 X 10*3/uL (0.90-5.00); Lymphocytes % (A) 5.4 %; MCH 27.9 pg (27.0-32.0); MCHC 30.4 g/dL (32.0-37.0); MCV 91.6 FL (80.0-97.0); Monocytes # (A) 1.08 X 10*3/uL (0.20-1.00); Monocytes % (A) 4.7 %; NRBC Per 100 WBC 0.07 X 10*3/uL (0.00-0.01); Neutrophils # (A) 20.55 X 10*3/uL (1.80-7.70); Platelet Count 27 X 10*3/uL (140-440); RBC 2.87 X 10*6/uL (4.10-5.20); RDW 14.5 % (11.5-14.5); WBC 23.09 X 10*3/uL (4.50-10.00)
[2025-03-07] MEDS: MORPHINE SULFATE 2 MG/ML SYRINGE IVP PRN (11:47)
[2025-03-07] MEDS: SCOPOLAMINE 1 MG/72 HR PATCH TRANSDERM SCH (11:47)
--- NOTE | 2025-03-07 23:16 | P.DS ---
Providers Date of admission: 03/03/25 17:13 Attending physician: Alex Martin Primary care physician: [facility] Course: Diagnoses: Suspected bilateral multifocal pneumonia/pneumonitis involving mainly patchy basilar opacities suspicious for aspiration pneumonanitis Acute urinary tract infection chronic compression deformity of L1, L2 and L3, seen on the CAT scan Coronary artery disease Dementia Diabetes mellitus Hypertension Hyperlipidemia History of osteoarthritis Hypothyroidism History of fall and hip surgery using a walker Hospital course: This is a pleasant 84 years old female with past medical history of multiple medical problemsAs below Patient presents because of failure to thrive increased confusion and weak cough, CT of the abdomen and pelvis without contrast showing bilateral pleural effusion right more than left with bilateral patchy basilar opacities suspicious for multifocal pneumonia. Also patient has chronic compression deformity of L1, L2 and L3. Patient was treated with multiple antibiotic including ceftriaxone and Zithromax with no significant improvement. Patient also developing complication like thrombocytopenia which is severe but there is no evidence of bleeding. Patient does not make any progress and she remains severely encephalopathic. Yesterday daughter Dariela made her DNR. Today I have a conference with 3 female family members at bedside including her daughter. I discussed the case with them in details including findings and management. And prognosis as well. The were leaning towards more comfort measures the do not want their mother to suffer anymore which looks appropriate. Family then decided to pursue with comfort care measures and stop everything and consult hospice which is obtained upon the request. All questions answered to their satisfaction and support provided to the family Problems and management plan were discussed with the patient and he verbalized understanding and acceptance Patient was found stable and can be discharged home in guarded prognosis however he needs follow-up as an outpatient. Patient was instructed to follow up with PCP within one week and patient agrees Physical exam -Gen: patient is a obtund, nonverbal CVS: S1-S2, RRR, no murmur -Lungs: B/L CTA, no wheezing. Mildly tachypneic with basilar coarse crepitation Abdomen: soft, no distention, no tenderness, positive bowel sounds Extremity: no leg edema or induration Time spent more than 35 minutes Patient Condition at Discharge: Fair Plan - Discharge Summary Discharge Rx Participant: No New Discharge Prescriptions: No Action Levothyroxine Sodium [Synthroid] 25 mcg PO DAILY@0800 Vibegron [Gemtesa] 75 mg PO HS@2100 guaiFENesin SYRUP 100MG/5ML [Robitussin] 200 mg PO Q4HR PRN ml PRN Reason: Cough HYDROcodone/APAP 5-325MG [Noel 5-325] 1 tab PO Q8H PRN PRN Reason: Pain bisacodyL [Dulcolax] 10 mg RECTAL DAILY PRN PRN Reason: Constipation Na Phos,M-B/Na Phos,Di-Ba [Fleet Adult] 133 ml RECTAL DAILY PRN PRN Reason: Constipation Acetaminophen [Tylenol] 650 mg PO Q4H PRN PRN Reason: General Discomfort Valsartan [Diovan] 80 mg PO BID@0800,1700 Furosemide [Lasix] 20 mg PO DAILY@1630 Simvastatin [Zocor] 40 mg PO DAILY@1700 Sennosides [Senokot] 8.6 mg PO BID@0800,1700 Metoprolol Succinate (ER) [Toprol XL] 25 mg PO BID@0800,1700 Ensure Enlive 237 ml PO TID@0800,1200,1700 polyethylene glycoL 3350 [Miralax] 17 gm PO DAILY@0800 Magic Cup 1 dose PO W/SUPPER@1700 Furosemide [Lasix] 40 mg PO DAILY@0800 Magnesium Hydroxide [Milk of Magnesia Concentrate] 7,200 mg PO Q48H PRN PRN Reason: Constipation Discharge Medication List Simvastatin [Zocor] 40 mg PO DAILY@1700 10/05/22 [History] Levothyroxine Sodium [Synthroid] 25 mcg PO DAILY@0800 01/31/24 [History] Vibegron [Gemtesa] 75 mg PO HS@2100 02/20/25 [History] guaiFENesin SYRUP 100MG/5ML [Robitussin] 200 mg PO Q4HR PRN ml 02/26/25 [Rx] Acetaminophen [Tylenol] 650 mg PO Q4H PRN 03/03/25 [History] Ensure Enlive 237 ml PO TID@0800,1200,1700 03/03/25 [History] Furosemide [Lasix] 20 mg PO DAILY@1630 03/03/25 [History] Furosemide [Lasix] 40 mg PO DAILY@0800 03/03/25 [History] HYDROcodone/APAP 5-325MG [Noel 5-325] 1 tab PO Q8H PRN 03/03/25 [History] Magic Cup 1 dose PO W/SUPPER@1700 03/03/25 [History] Magnesium Hydroxide [Milk of Magnesia Concentrate] 7,200 mg PO Q48H PRN 03/03/25 [History] Metoprolol Succinate (ER) [Toprol XL] 25 mg PO BID@0800,1700 03/03/25 [History] Na Phos,M-B/Na Phos,Di-Ba [Fleet Adult] 133 ml RECTAL DAILY PRN 03/03/25 [History] Sennosides [Senokot] 8.6 mg PO BID@0800,1700 03/03/25 [History] Valsartan [Diovan] 80 mg PO BID@0800,1700 03/03/25 [History] bisacodyL [Dulcolax] 10 mg RECTAL DAILY PRN 03/03/25 [History] polyethylene glycoL 3350 [Miralax] 17 gm PO DAILY@0800 03/03/25 [History] Follow up Appointment(s)/Referral(s): Marbin Braden MD [STAFF PHYSICIAN] - 1-2 days Discharge Disposition: HOME WITH HOSPICE
--- NOTE | 2025-03-10 09:47 | CDI ---
Documentation Clarification Form Date: 03/10/25 From: Terri Novoa Admit Date: 03/03/2025 05:13:00 PM Patient Name: Carmen Ash Visit Number: [id number] Discharge Date: 03/07/2025 04:57:00 PM ATTENTION: The Clinical Documentation Specialists (CDI) and [facility] Coding Staff appreciate your assistance in clarifying documentation. Please respond to the clarification below the line at the bottom and electronically sign. The CDI & [facility] Coding staff will review the response and follow-up if needed. Please note: Queries are made part of the Legal Health Record. If you have any questions, please contact the author of this message via ITS. Doctor/Provider: Chris E Sheet, Suspicious for aspiration pneumonia is documented in the H&P, PNs& DS. Additional clarification regarding the type of pneumonia is requested. History/Risk Factors: Dementia,type 2 diabetes mellitus,osteoarthritis,hypothyroidism, coronary artery disease,hyperlipidemia,hypertension` Clinical Indicators: Suspected bilateral multifocal pneumonia/pneumonitis involving mainly patchy basilar opacities suspicious foraspirationpneumonitis. WBC/Left shift: 21.89/ 19.74 X-ray: Increasingright lower lobe infiltratewithpleural effusion. Mild patchy densityleft medial lung base. Lung/Breathing assessment: Shortness of breathwithcoughandcongestion. Treatment: Pneumonia protocol IV Antibiotics: Azithromycin, Ceftriaxone, Zosyn O2 Breathing Tx: Neubizer Please clarify the type of pneumonia, if known: [ ] Aspiration Pneumonia, Due to food or vomitus [ ] Bacterial Pneumonia, specify causal organism (if known) [ ] Gram Negative Bacterial Pneumonia [ ] Other, please specify [ ] Unable to determine MTDD
--- NOTE | 2025-03-10 10:00 | CDI ---
Documentation Clarification Form Date: 03/10/25 From: Terri Novoa Admit Date: 03/03/2025 05:13:00 PM Patient Name: Carmen Ash Visit Number: [id number] Discharge Date: 03/07/2025 04:57:00 PM ATTENTION: The Clinical Documentation Specialists (CDI) and [facility] Coding Staff appreciate your assistance in clarifying documentation. Please respond to the clarification below the line at the bottom and electronically sign. The CDI & [facility] Coding staff will review the response and follow-up if needed. Please note: Queries are made part of the Legal Health Record. If you have any questions, please contact the author of this message via ITS. Doctor/Provider: Chris E Sheet, Your patient has the documented diagnosis of unspecified acute on chronic heart failure per ED note Additional information regarding the type and acuity of CHF is requested. History/Risk Factors: Dementia, type 2 diabetes mellitus, osteoarthritis, hypothyroidism, coronary artery disease, hyperlipidemia, hypertension` Clinical Indicators: She complains fromdyspnea, tachycardicandchest pain. VS/Pulse OX: T 97.4, R 20, BP 166/82, O2 SAT 94 ON 2 L O2 BNP: None Echocardiogram Results 02/21: Left ventricular EF 35 to 40% Chest X Ray: Increased, now moderate rightpleural effusionwith prominent adjacent atelectasisand/or consolidation. Ongoing trace leftpleural effusion. Treatment: IV Lasix 40 mg In your professional opinion, can you please clarify the [acuity and type] of CHF if known? [ x] Acute on Chronic Systolic Heart Failure (reduced EF) [ ] Acute on Chronic Diastolic Heart Failure (preserved EF) [ ] Acute on Chronic Heart Failure Systolic & Diastolic Heart Failure [ ] Other, please specify [ ] Unable to determine MTDD
--- NOTE | 2025-03-10 12:22 | CDI ---
Documentation Clarification Form Date: 03/10/25 From: Terri Novoa Admit Date: 03/03/2025 05:13:00 PM Patient Name: Carmen Ash Visit Number: [id number] Discharge Date: 03/07/2025 04:57:00 PM ATTENTION: The Clinical Documentation Specialists (CDI) and [facility] Coding Staff appreciate your assistance in clarifying documentation. Please respond to the clarification below the line at the bottom and electronically sign. The CDI & [facility] Coding staff will review the response and follow-up if needed. Please note: Queries are made part of the Legal Health Record. If you have any questions, please contact the author of this message via ITS. Doctor/Provider: Chris E Sheet, Your patient has clinical signs of sepsis. Based on this information and the findings below, is there an additional diagnosis that is clinically appropriate for this patient? Patient history/risk factors: Dementia,type 2 diabetes mellitus,osteoarthritis, hypothyroidism, coronary artery disease,hyperlipidemia,hypertension` Clinical Indicators: Patient presents because offailure to thriveincreasedconfusionandweak with cough. Mildly tachycardia. WBC 21.89, Neutrophils 19.74, R 32 (03/05), P 102/101 (03/03, Platelets 88/85/54/31, I2 Sat 64 (), 93 (/) Treatment IV Antibiotics: Azithromycin, Ceftriaxone, Zosyn Is there an additional diagnosis that is clinically appropriate for this patient? [ ] Sepsis has been ruled out. Aspiration pneumonia was present on admission without bacterial/infectious pneumonia [ ] Sepsis has been ruled out. Atypical bacterial pneumonia with underlying aspiration pneumonia was present on admission [ x] Sepsis present on admission due to atypical bacterial pneumonia with underlying aspiration pneumonia [ ] Other, please specify [ ] Unable to determine MTDD
== END 2025-03-07 16:57 | disposition hospice, inpatient (51) | DRG 871 ==
LOC: EC 14:41 → OBSVTOIN 17:13 → 4SSUR 17:13
PROVIDERS: ADMIT Hospitalist; ATTEND Hospitalist
DX: A41.9 Sepsis, unspecified organism (principal); E43 Unspecified severe protein-calorie malnutrition; I50.23 Acute on chronic systolic (congestive) heart failure; G93.41 Metabolic encephalopathy; J69.0 Pneumonitis due to inhalation of food and vomit; J18.9 Pneumonia, unspecified organism; Z51.5 Encounter for palliative care; F03.C4 Unspecified dementia, severe, with anxiety; E87.1 Hypo-osmolality and hyponatremia; N39.0 Urinary tract infection, site not specified; I11.0 Hypertensive heart disease with heart failure; E11.9 Type 2 diabetes mellitus without complications; D69.6 Thrombocytopenia, unspecified; E03.9 Hypothyroidism, unspecified; R62.7 Adult failure to thrive; Z66 Do not resuscitate; I25.10 Atherosclerotic heart disease of native coronary artery without angina pectoris; M48.56XS Collapsed vertebra, not elsewhere classified, lumbar region, sequela of fracture; E78.5 Hyperlipidemia, unspecified; Z79.890 Hormone replacement therapy; Z79.899 Other long term (current) drug therapy; Z68.21 Body mass index [BMI] 21.0-21.9, adult
CPT/HCPCS: 36415; 71046; 74176; 80048; 80053; 81001; 83605; 83735; 84100; 84145; 85025; 87040; 87086; 87449; 87636; 94640; 96361; 96365; 96366; 96367; 99291

== ENCOUNTER 2025-03-07 15:27 | Inpatient (IN) | payer MEDICAID ==
[2025-03-07] MEDS ORDERED: ATROPINE OPHTH SOLN 1% 5ML BTL SUBLINGUAL PRN (16:58)
[2025-03-07] MEDS ORDERED: ONDANSETRON 4 MG/2 ML VIAL IVP PRN (16:58)
[2025-03-07] MEDS ORDERED: ACETAMINOPHEN SUPPOSITORY 650 MG SUPP RECTAL PRN (16:58)
[2025-03-07] MEDS: LORazepam 1 MG/0.5 ML VIAL IV PRN (17:20)
[2025-03-07] MEDS: MORPHINE SULFATE 2 MG/ML SYRINGE IV PRN (18:38)
[2025-03-08 03:25] VITALS: RESP 15
== END 2025-03-08 10:41 | disposition expired | DRG 951 ==
LOC: 4SSUR 16:57
PROVIDERS: ADMIT Internal Medicine; ATTEND Internal Medicine
DX: Z51.5 Encounter for palliative care (principal); J69.0 Pneumonitis due to inhalation of food and vomit; Z66 Do not resuscitate; F03.90 Unspecified dementia, unspecified severity, without behavioral disturbance, psychotic disturbance, mood disturbance, and anxiety; E11.9 Type 2 diabetes mellitus without complications; I10 Essential (primary) hypertension; E03.9 Hypothyroidism, unspecified; M48.56XA Collapsed vertebra, not elsewhere classified, lumbar region, initial encounter for fracture; N39.0 Urinary tract infection, site not specified; R62.7 Adult failure to thrive; I25.10 Atherosclerotic heart disease of native coronary artery without angina pectoris; E78.5 Hyperlipidemia, unspecified; M19.90 Unspecified osteoarthritis, unspecified site; Z68.24 Body mass index [BMI] 24.0-24.9, adult; Z91.81 History of falling; Z79.890 Hormone replacement therapy; Z79.899 Other long term (current) drug therapy; Z96.9 Presence of functional implant, unspecified